=== PATIENT | male | born 1995 | race Caucasian/White ===

== ENCOUNTER 2016-06-11 23:22 | Emergency (ER) | payer OTHER ==
[~2016-06-11] VITALS: Ht 170.2 cm; Wt 63.9 kg
[~2016-06-11 23:22] MED LIST: ACET-1256 PO
[2016-06-11 23:30] VITALS: TEMP 37; Ht 170.2 cm; Wt 63.9 kg
[2016-06-11] MEDS ORDERED: MoRPHine SULFATE 4 MG/ML 1 ML CARP\\VIAL IM STA (23:39)
[2016-06-11] MEDS ORDERED: ONDANSETRON 4MG OD TAB PO ONE (23:45)
[2016-06-11] MEDS ORDERED: DEXAMETHASONE SOD INJ 10 MG/ML VIAL IM ONE (23:45)
--- NOTE | 2016-06-11 23:51 | EMERGENCY ROOM VISIT NOTE ---
History Report prepared by Eloy: Betsy Westbrook Under the Supervision of: Dr. Emanuel Ocasio D.O. First contact with patient: 23:35 Chief Complaint: HEADACHE Stated Complaint: MIGRAINE; HEAD PAIN History of Present Illness The patient is a 20 year old male who presents to the Emergency Room with complaints of a persistent migraine in the middle of his forehead starting 2 months [employer]. The patient states that during the first month of the migraine it was intermittent and the last month he states it has been constant. The patient states that he has had blurred vision, ear ringing, and nausea associated with his symptoms. The patient states he has had migraine in the past but this migraine feels different because nothing has made it better and the duration of the migraine. The patient denies any fevers. Source of History: patient Onset: 2 months [employer] Position: head (middle forehead) Timing: constant, intermittent Associated Symptoms: + nausea, No fevers Note: Associated symptoms: ear ringing, blurred vision. Review of Systems See HPI for pertinent positives & negatives. A total of 10 systems reviewed and were otherwise negative. Past Medical & Surgical Medical Problems: (1) Attn Deficit W Hyperact (2) Bipolar Disorder, Unspecified (3) Dental caries (4) Exacerbation of chronic back pain (5) Lumbago (6) Migraine Unspecified W/O Intract Mgrn W/O Status Migrainosus (7) Pain, dental (8) Pharyngitis (9) Thrush of mouth and esophagus (10) Tobacco Use Disorder Surgical Problems: (1) Inguinal hernia Family History Diabetes mellitus FH: cancer FH: gallbladder disease FH: heart disease FH: lung disease Hypertension Kidney disease or stones Social History Smoking Status: Current Every Day Smoker Alcohol Use: none Marital Status: single Housing Status: lives alone Occupation Status: employed Current/Historical Medications Scheduled Loratadine (Claritin), 10 MG PO DAILY Scheduled PRN Acetaminophen (Tylenol), 1,000 MG PO Q6H PRN for Pain Ibuprofen Tab (Advil), 600-800 MG PO Q6H PRN for Pain Allergies Coded Allergies: Penicillins (Verified Allergy, Severe, ANAPHYLAXIS, 01/25/16) Promethazine (Verified Allergy, Severe, SHORTNESS OF BREATH, 01/25/16) Tramadol (Verified Allergy, Severe, SHORTNESS OF BREATH, 01/25/16) Diphenhydramine (Verified Allergy, Unknown, Itchiness and trouble breathing., 01/25/16) Lactose (Verified Adverse Reaction, Intermediate, nausea, 01/25/16) Uncoded Allergies: ANTIINFLAMMATORIES (Adverse Reaction, Mild, migraines, 06/14/15) Physical Exam Vital Signs Date Time Temp Pulse Resp B/P Pulse Ox O2 Delivery O2 Flow Rate FiO2 06/12/16 01:07 64 18 144/72 96 Room Air 06/11/16 23:30 37.0 86 18 139/90 96 Room Air Physical Exam GENERAL: Patient is awake, alert, and in no acute distress. Patient is resting comfortably and showing no signs of anxiety EYES: The conjunctivae are clear. The pupils are round and reactive. EARS, NOSE, MOUTH AND THROAT: The nose is without any evidence of any deformity. Mucous membranes are moist tongue is midline. TM clear bilaterally. NECK: The neck is nontender and supple. RESPIRATORY: Normal respiratory effort is noted there is no evidence of wheezing rhonchi or rales CARDIOVASCULAR: Regular rate and rhythm noted there no murmurs rubs or gallops normal S1 normal S2 GASTROINTESTINAL: The abdomen is soft. Bowel sounds are present in all quadrants. Abdomen is nontender MUSCULOSKELETAL/EXTREMITIES: There is no evidence of gross deformity full range of motion is noted in the hips and shoulders SKIN: There is no obvious evidence of any rash. There are no petechiae, pallor or cyanosis noted. NEUROLOGIC: Patient is awake alert and oriented x3 strength is symmetric patellar reflexes are 2+ bilaterally Medical Decision & Procedures ER Provider Diagnostic Interpretation: CT results as stated below per my review and radiologist interpretation. Preliminary Findings Only -- See Final Report for Complete Findings: CT HEAD: Comparison is made to CT head dated 02/21/14 No evidence of ICH, mass effect, or edema. Chen-white differentiation preserved. No evidence of skull fracture. Visualized paranasal sinuses and mastoid air cells are clear. Radiologist: Alysha Chan M.D. Study ready at 1383 and initial results transmitted at 3534. Medications Administered Medications (Trade) Dose Ordered Sig/Eldon Route Start Time Stop Time Status Last Admin Dose Admin Morphine Sulfate (MoRPHine SULFATE INJ) 4 mg NOW STAT IM 06/11/16 23:39 06/11/16 23:41 DC 06/11/16 23:47 4 MG Ondansetron HCl (Zofran Odt) 4 mg ONE ONCE PO 06/11/16 23:45 06/11/16 23:46 DC 06/11/16 23:46 4 MG Dexamethasone Sodium Phosphate (Decadron Inj) 10 mg NOW ONCE IM 06/11/16 23:45 06/11/16 23:46 DC 06/11/16 23:46 10 MG Morphine Sulfate (MoRPHine SULFATE INJ) 4 mg NOW STAT IM 06/12/16 00:14 06/12/16 00:15 DC 06/12/16 00:29 4 MG ED Course 2338: The patient was evaluated in room B12B. A complete history and physical examination were performed. 2339: Ordered Morphine Sulfate 4 mg IM. 2345: Ordered Decadron Inj 10 mg IM, Zofran Odt 4 mg PO 0014: Ordered Morphine Sulfate 4 mg IM. 0105: Upon reevaluation, the patient is hemodynamically stable. I discussed the results and treatment plan with him. He verbalized agreement of the treatment plan. The patient was discharged home. Medical Decision The patient's history was concerning for headache. Differential diagnosis: Etiologies such as migraine headache, meningitis, sinusitis, CO exposure, ICH, SAH, infection, tumor, headache, sinus thrombosis, arterial dissection, as well as others were entertained. Nursing notes reviewed. The patient is a 20-year-old male who presented to the emergency department for an evaluation of headache. The patient states he has a history of migraine headaches but that this headache appears different to him in duration as well as intensity. The patient did not have any focal neurologic deficits. He had no fever or meningismus. The patient was treated with pain medication and antiemetics in the emergency department. On subsequent reevaluation he was feeling much better. I discussed the patient's radiographic studies with him. He was encouraged to rest and avoid any strenuous activity. He was encouraged to continue all medications as prescribed. He was also encouraged to follow-up with his family doctor in the morning for reevaluation but return to the emergency department immediately if symptoms change worsen or need arises. Impression Primary Impression: Migraine Additional Impression: Headache Scribe Attestation The scribe's documentation has been prepared under my direction and personally reviewed by me in its entirety. I confirm that the note above accurately reflects all work, treatment, procedures, and medical decision making performed by me. Departure Information Dispostion Home / Self-Care Referrals Martin Waters M.D. (PCP) Forms HOME CARE DOCUMENTATION FORM, IMPORTANT VISIT INFORMATION Patient Instructions My [facility] Additional Instructions Call your family in the morning to schedule follow-up appointment. Rest and avoid any strenuous activity. Continue all medications as prescribed. Continue using Motrin and Tylenol stretcher for pain. Problem Qualifiers
[2016-06-11] MEDS ORDERED: CLR10 PO (23:59)
[2016-06-12] MEDS ORDERED: MoRPHine SULFATE 4 MG/ML 1 ML CARP\\VIAL IM STA (00:14)
[2016-06-12 01:07] VITALS: BP 144/72; PULSE 64; O2SAT 96
--- NOTE | 2016-06-12 06:55 | DIAGNOSTIC IMAGING REPORT ---
CT OF THE HEAD WITHOUT CONTRAST CLINICAL HISTORY: Headache. COMPARISON STUDY: Head CT February 21, 2014. CT DOSE: 537.48 mGy.cm TECHNIQUE: Helical axial images of the head were obtained without IV contrast. Automated exposure control was utilized for the study. FINDINGS: No acute intracranial hemorrhage, midline shift or mass effect is present. Ventricular system is normal. The basilar cisterns are patent. No extra-axial collection is present. Chen-white differentiation is maintained. There are no findings to suggest acute dural sinus thrombosis or acute territorial infarct. There is no calvarial abnormality. Visualized portions of the sinuses and mastoid air cells are clear. IMPRESSION: No acute intracranial findings. Electronically signed by: Iftikhar Pulliam M.D. 06/12/2016 6:54 AM Dictated Date/Time: 06/12/2016 6:53 AM
[2016-08-26] MEDS ORDERED: ACET-1256 PO (21:22)
== END 2016-06-12 01:09 | disposition home or self-care (01) ==
LOC: C.EDB 23:23
DX: G43.909 Migraine, unspecified, not intractable, without status migrainosus (principal); F31.9 Bipolar disorder, unspecified; F90.9 Attention-deficit hyperactivity disorder, unspecified type; F17.200 Nicotine dependence, unspecified, uncomplicated; Z83.3 Family history of diabetes mellitus; Z80.9 Family history of malignant neoplasm, unspecified; Z83.79 Family history of other diseases of the digestive system; Z82.49 Family history of ischemic heart disease and other diseases of the circulatory system; Z84.1 Family history of disorders of kidney and ureter

== ENCOUNTER 2016-06-24 21:52 | Emergency (ER) | payer SELFPAY ==
[~2016-06-24] VITALS: Ht 170.2 cm; Wt 85.3 kg
[~2016-06-24 21:52] MED LIST changes: +CLR10 PO
[2016-06-24 21:56] VITALS: TEMP 37.3; Ht 170.2 cm; Wt 85.3 kg
[2016-06-24] MEDS ORDERED: ONDANSETRON INJ 2 MG/ML 2 ML VIAL IV STA (22:20)
[2016-06-24] MEDS ORDERED: SODIUM CHLORIDE 0.9% 1000ML 500 ML IV STA (22:20)
[2016-06-24] MEDS ORDERED: SODIUM CHLORIDE 0.9% 1000ML 1,000 ML IV STA (22:20)
--- NOTE | 2016-06-24 22:29 | EMERGENCY ROOM VISIT NOTE ---
History Report prepared by Eloy: Tracey Siddiqi Under the Supervision of: Dr. Augusto Calloway M.D. First contact with patient: 22:13 Chief Complaint: ABDOMINAL PAIN Stated Complaint: R LWR STOMACH PAIN, THROWING UP,CANT EAT History of Present Illness The patient is a 20 year old male who presents to the Emergency Room with complaints of worsening abdominal pain that started 3 weeks ago. He rates the pain a 9/10 in severity. It worsens with movement. Associated symptoms include nausea, vomiting, and hematochezia. The patient states that his emesis is blood tinged. The patient has a history of hernia repair 3 years ago. Source of History: patient Onset: 3 weeks ago Position: abdomen Symptom Intensity: 9/10 Timing: worsening Modifying Factors (Worsening): movement Associated Symptoms: + hematochezia, + nausea, + vomiting Review of Systems See HPI for pertinent positives & negatives. A total of 10 systems reviewed and were otherwise negative. Past Medical & Surgical Medical Problems: (1) Attn Deficit W Hyperact (2) Bipolar Disorder, Unspecified (3) Dental caries (4) Exacerbation of chronic back pain (5) Lumbago (6) Migraine Unspecified W/O Intract Mgrn W/O Status Migrainosus (7) Pain, dental (8) Pharyngitis (9) Thrush of mouth and esophagus (10) Tobacco Use Disorder Surgical Problems: (1) Inguinal hernia Family History Diabetes mellitus FH: cancer FH: gallbladder disease FH: heart disease FH: lung disease Hypertension Kidney disease or stones Social History Smoking Status: Current Every Day Smoker Alcohol Use: none Marital Status: single Housing Status: lives alone Occupation Status: employed Current/Historical Medications Scheduled Loratadine (Claritin), 10 MG PO DAILY Scheduled PRN Ibuprofen Tab (Advil), 600-800 MG PO Q6H PRN for Pain Allergies Coded Allergies: Penicillins (Verified Allergy, Severe, ANAPHYLAXIS, 06/24/16) Promethazine (Verified Allergy, Severe, SHORTNESS OF BREATH, 06/24/16) Tramadol (Verified Allergy, Severe, SHORTNESS OF BREATH, 06/24/16) Diphenhydramine (Verified Allergy, Unknown, Itchiness and trouble breathing., 06/24/16) Lactose (Verified Adverse Reaction, Intermediate, nausea, 06/24/16) Uncoded Allergies: ANTIINFLAMMATORIES (Adverse Reaction, Mild, migraines, 06/14/15) Physical Exam Vital Signs Date Time Temp Pulse Resp B/P Pulse Ox O2 Delivery O2 Flow Rate FiO2 06/25/16 00:17 76 16 131/75 98 06/24/16 21:56 37.3 81 17 141/90 99 Room Air Physical Exam GENERAL: Patient is in no acute distress. HEENT: No acute trauma, normocephalic atraumatic, mucous membranes moist, no nasal congestion, no scleral icterus. NECK: No stridor, no adenopathy, no meningismus, trachea is midline. LUNGS: Clear to auscultation bilaterally, no wheeze, no rhonchi, breath sounds equal. HEART: 2/6 systolic murmur, mildly tachycardic. Regular rhythm. ABDOMEN: Moderately tender right lower quadrant, soft, bowel sounds positive, no hernias, no peritonitis. GROIN: Testicles non tender, no hernia. RECTAL: Heme negative. EXTREMITIES: No cyanosis or edema, full range of motion of all the joints without pain or difficulty, no signs for acute trauma. NEUROLOGIC: Oriented x 3, no acute motor or sensory deficits, no focal weakness. SKIN: No rash, no jaundice, no diaphoresis. Medical Decision & Procedures Laboratory Results 06/24/16 22:30 Red Blood Count 4.30, Mean Corpuscular Volume 84.7, Mean Corpuscular Hemoglobin 29.8, Mean Corpuscular Hemoglobin Concent 35.2, Mean Platelet Volume 9.5, Neutrophils (%) (Auto) 68.8, Lymphocytes (%) (Auto) 19.3, Monocytes (%) (Auto) 8.5, Eosinophils (%) (Auto) 2.9, Basophils (%) (Auto) 0.4, Neutrophils # (Auto) 4.96, Lymphocytes # (Auto) 1.39, Monocytes # (Auto) 0.61, Eosinophils # (Auto) 0.21, Basophils # (Auto) 0.03 06/24/16 22:30 Test 06/24/16 22:30 06/24/16 22:40 White Blood Count 7.21 K/uL (4.8-10.8) Red Blood Count 4.30 M/uL (4.7-6.1) Hemoglobin 12.8 g/dL (14.0-18.0) Hematocrit 36.4 % (42-52) Mean Corpuscular Volume 84.7 fL (80-100) Mean Corpuscular Hemoglobin 29.8 pg (25-34) Mean Corpuscular Hemoglobin Concent 35.2 g/dl (32-36) Platelet Count 234 K/uL (130-400) Mean Platelet Volume 9.5 fL (7.4-10.4) Neutrophils (%) (Auto) 68.8 % Lymphocytes (%) (Auto) 19.3 % Monocytes (%) (Auto) 8.5 % Eosinophils (%) (Auto) 2.9 % Basophils (%) (Auto) 0.4 % Neutrophils # (Auto) 4.96 K/uL (1.4-6.5) Lymphocytes # (Auto) 1.39 K/uL (1.2-3.4) Monocytes # (Auto) 0.61 K/uL (0.11-0.59) Eosinophils # (Auto) 0.21 K/uL (0-0.5) Basophils # (Auto) 0.03 K/uL (0-0.2) RDW Standard Deviation 36.9 fL (36.4-46.3) RDW Coefficient of Variation 12.0 % (11.5-14.5) Immature Granulocyte % (Auto) 0.1 % Immature Granulocyte # (Auto) 0.01 K/uL (0.00-0.02) Anion Gap 10.0 mmol/L (3-11) Est Creatinine Clear Calc Drug Dose 145.7 ml/min Estimated GFR () 144.8 Estimated GFR (Non- 124.9 BUN/Creatinine Ratio 14.9 (10-20) Lactic Acid Level 1.2 mmol/L (0.4-2.0) Calcium Level 8.4 mg/dl (8.5-10.1) Total Bilirubin 0.2 mg/dl (0.2-1) Aspartate Amino Transf (AST/SGOT) 10 U/L (15-37) Alanine Aminotransferase (ALT/SGPT) 14 U/L (12-78) Alkaline Phosphatase 56 U/L (45-117) Total Protein 6.7 gm/dl (6.4-8.2) Albumin 4.0 gm/dl (3.4-5.0) Globulin 2.7 gm/dl (2.5-4.0) Albumin/Globulin Ratio 1.5 (0.9-2) Lipase 222 U/L (73-393) Urine Color YELLOW Urine Appearance CLEAR (CLEAR) Urine pH 6.5 (4.5-7.5) Urine Specific [place] 1.027 (1.000-1.030) Urine Protein NEG (NEG) Urine Glucose (UA) NEG (NEG) Urine Ketones NEG (NEG) Urine Occult Blood NEG (NEG) Urine Nitrite NEG (NEG) Urine Bilirubin NEG (NEG) Urine Urobilinogen NEG (NEG) Urine Leukocyte Esterase NEG (NEG) Laboratory results reviewed by me. Medications Administered Medications (Trade) Dose Ordered Sig/Eldon Route Start Time Stop Time Status Last Admin Dose Admin Sodium Chloride (Nss 1000ml) 500 ml @ 999 mls/hr Q31M STAT IV 06/24/16 22:20 06/24/16 22:50 DC 06/24/16 22:35 999 MLS/HR Ondansetron HCl 4 mg 4 mg NOW STAT IV 06/24/16 22:20 06/24/16 22:23 DC 06/24/16 22:35 4 MG Sodium Chloride (Nss 1000ml) 1,000 ml @ 200 mls/hr Q5H STAT IV 06/24/16 22:20 06/25/16 03:19 06/24/16 22:35 200 MLS/HR Morphine Sulfate (MoRPHine SULFATE INJ) 6 mg Q30M PRN IV 06/24/16 22:30 07/08/16 22:29 06/25/16 00:26 6 MG ED Course 2214: The patient was evaluated in room A2. A complete history and physical exam was performed. 2220: Ordered Sodium Chloride 1,000 ml @ 200 mls/hr IV, Zofran Injection 4 mg IV , Sodium Chloride 500 ml @ 999 mls/hr IV. 2230: Ordered Morphine Sulfate 6 mg IV. Medical Decision Differential diagnosis includes but is not limited to appendicitis, hernia, renal colic, musculoskeletal pain, mesenteric adenitis, biliary colic, pancreatis, bowel obstruction, GI bleeding There is no leukocytosis or concerning anemia. No significant electrolyte abnormality, kidney failure or hepatitis. There is no pancreatitis. Lactic acid level is not elevated making bowel ischemia less likely. On exam, the patient did have tenderness in the right lower quadrant, there was no peritonitis. He was not febrile or toxic. Rectal exam was done because of his complaints of rectal bleeding, the stool was heme-negative. The patient received IV saline, IV Zofran and IV morphine. He is more comfortable. Because of concerns for possible appendicitis or diverticulitis, an abdominal and pelvis CT has been ordered, this result is pending. The patient's case has been assumed by Dr. Almaguer, she has assumed care at the change of shift. We await the CT results. Impression Primary Impression: Right lower quadrant abdominal pain Scribe Attestation The scribe's documentation has been prepared under my direction and personally reviewed by me in its entirety. I confirm that the note above accurately reflects all work, treatment, procedures, and medical decision making performed by me. Departure Information Dispostion Still a Patient Referrals Martin Waters M.D. (PCP) Patient Instructions My [facility]
[2016-06-24] MEDS: MoRPHine SULFATE 10 MG/ML CARP/VIAL IV PRN (22:36)
[2016-06-24 22:52] LABS: URINE APPEARANCE CLEAR (CLEAR); URINE BILIRUBIN NEG (NEG); URINE COLOR YELLOW; URINE NITRITE NEG (NEG); URINE PH 6.5 (4.5-7.5); URINE SPECIFIC GRAVITY 1.027 (1.000-1.030); UROBILINOGEN NEG (NEG); ZZUR CULT IF INDIC CLEAN CATCH NO
[2016-06-24 22:55] LABS: BASO % 0.4 %; BASO ABS # 0.03 K/uL (0-0.2); COMPLETE YES; EOS % 2.9 %; HEMATOCRIT 36.4 % (42-52); IG% 0.1 %; LYMPH % 19.3 %; LYMPH ABS # 1.39 K/uL (1.2-3.4); MEAN CELL VOLUME 84.7 fL (80-100); MEAN CORPUSCULAR HEMOGLOBIN 29.8 pg (25-34); MEAN CORPUSCULAR HGB CONC 35.2 g/dl (32-36); MEAN PLATELET VOLUME 9.5 fL (7.4-10.4); MONO % 8.5 %; NEUT % 68.8 %; PLATELET COUNT 234 K/uL (130-400); WHITE BLOOD COUNT 7.21 K/uL (4.8-10.8)
[2016-06-24 22:56] LABS: MANUAL MICROSCOPIC REQUIRED? NO; REVIEW REQ? NO
[2016-06-24 23:16] LABS: BUN/CREATININE RATIO 14.9 (10-20); CALCIUM 8.4 mg/dl (8.5-10.1); CREATININE 0.83 mg/dl (0.60-1.40); POTASSIUM 3.1 mmol/L (3.5-5.1)
[2016-06-24 23:19] LABS: ALB/GLOB RATIO 1.5 (0.9-2)
[2016-06-25] MEDS: MoRPHine SULFATE 10 MG/ML CARP/VIAL IV PRN (00:26)
[2016-06-25] MEDS ORDERED: OPTIRAY 320 IV PRN (00:30)
[2016-06-25] MEDS ORDERED: ONDANSETRON INJ 2 MG/ML 2 ML VIAL IV STA (02:10)
[2016-06-25] MEDS ORDERED: OXYCODONE HCL IR 5 MG TAB (IMMEDIATE RELEASE) PO STA (02:10)
[2016-06-25] MEDS ORDERED: ONDA4TAB46 PO (02:18)
[2016-06-25] MEDS ORDERED: PRLSR20 PO (02:18)
[2016-06-25 02:21] VITALS: BP 132/76; PULSE 80; O2SAT 98
--- NOTE | 2016-06-25 02:24 | EMERGENCY ROOM VISIT NOTE ---
ED Visit Note First contact with patient: 01:10 This case was signed out to me at change of shift awaiting results of the CT scan of the abdomen/pelvis. CT scan was interpreted by stat rad: The appendix is normal in appearance. However, there is free fluid in the right lower quadrant and proximity to the appendix also unclear etiology. If there is persistent pain, recommend follow-up. No free air or fluid collections. No bowel obstruction. Mild wall thickening of the sigmoid, for example on image 321 of series 3, may be due to incomplete distention. Correlate with clinical findings to exclude focal colitis. Postsurgical changes in the right inguinal region. No recurrent hernia. No radiopaque gallstones. No pancreatitis or pyelonephritis. No hydronephrosis. Normal caliber abdominal aorta. Distended bladder. I reviewed these findings with the patient. He explained to me that he has had a history of previous fluid collection surrounding his appendix in the past. This is not a new finding for him. I recommended that he stop taking any NSAIDs because of his description of bleeding. I will start him on Prilosec and Zofran. I have asked him to follow up with Dr. Waters who is his PCP in her later today or tomorrow for recheck. He can return here to the emergency department symptoms worsen.
--- NOTE | 2016-06-25 07:00 | DIAGNOSTIC IMAGING REPORT ---
ABDOMEN AND PELVIS CT WITH IV AND ORAL CONTRAST CT DOSE: 267.94 mGy.cm HISTORY: Flank pain ABDOMINAL PAIN/GI--? APPY--GIVE PO AND IV CONTRAST TECHNIQUE: Multiaxial CT images of the abdomen and pelvis were performed following the use of intravenous and oral contrast. COMPARISON STUDY: 12/25/2015 FINDINGS: Lung bases are clear. Liver spleen and pancreas are unremarkable. Kidneys enhance appropriately. Gallbladder is negative for distention. Bowel pattern is nonobstructive. An is identified appear to be unremarkable. There is a trace amount of pericecal free fluid about surgical significance. Postoperative changes consistent with a right inguinal hernia repair noted. Bladder is midline. There is trace amount of free fluid within the pelvic cul-de-sac. IMPRESSION: 1. Nonobstructive bowel pattern. 2. Normal appendix. 3. Trace free fluid in the pericecal and cul-de-sac regions of uncertain significance. Electronically signed by: Martin Dee M.D. 06/25/2016 6:59 AM Dictated Date/Time: 06/25/2016 6:57 AM
[2016-08-26] MEDS ORDERED: ACET-1256 PO (21:22)
== END 2016-06-25 02:25 | disposition home or self-care (01) ==
LOC: C.EDB 21:53 → C.EDA 06-25 02:25
DX: R10.31 Right lower quadrant pain (principal); F90.1 Attention-deficit hyperactivity disorder, predominantly hyperactive type; F31.9 Bipolar disorder, unspecified; G89.29 Other chronic pain; M54.9 Dorsalgia, unspecified; F17.200 Nicotine dependence, unspecified, uncomplicated; Z83.3 Family history of diabetes mellitus; Z80.9 Family history of malignant neoplasm, unspecified; Z82.49 Family history of ischemic heart disease and other diseases of the circulatory system

== ENCOUNTER 2016-07-15 01:05 | Emergency (ER) | payer SELFPAY ==
[~2016-07-15] VITALS: Ht 170.2 cm; Wt 61.4 kg
[~2016-07-15 01:05] MED LIST changes: -ACET-1256 PO; +ONDA4TAB46 PO; +PRLSR20 PO
[2016-07-15 01:13] VITALS: TEMP 36.6; Ht 170.2 cm; Wt 61.4 kg
[2016-07-15] MEDS ORDERED: ONDANSETRON INJ 2 MG/ML 2 ML VIAL IV STA ×2 (01:38→03:18)
[2016-07-15] MEDS ORDERED: SODIUM CHLORIDE 0.9% 1000ML 1,000 ML IV STA (01:38)
[2016-07-15 01:53] LABS: URINE APPEARANCE CLEAR (CLEAR); URINE BILIRUBIN NEG (NEG); URINE COLOR YELLOW; URINE NITRITE NEG (NEG); URINE SPECIFIC GRAVITY 1.017 (1.000-1.030); UROBILINOGEN NEG (NEG); ZZUR CULT IF INDIC CLEAN CATCH NO
[2016-07-15 01:55] LABS: MANUAL MICROSCOPIC REQUIRED? NO; REVIEW REQ? NO
[2016-07-15 02:01] LABS: BASO % 0.5 %; BASO ABS # 0.04 K/uL (0-0.2); COMPLETE YES; EOS % 1.5 %; HEMATOCRIT 38.1 % (42-52); IG% 0.1 %; LYMPH % 25.3 %; LYMPH ABS # 2.05 K/uL (1.2-3.4); MEAN CELL VOLUME 80.7 fL (80-100); MEAN CORPUSCULAR HEMOGLOBIN 29.9 pg (25-34); MEAN PLATELET VOLUME 9.3 fL (7.4-10.4); MONO % 8.3 %; NEUT % 64.3 %; PLATELET COUNT 260 K/uL (130-400); RED BLOOD COUNT 4.72 M/uL (4.7-6.1)
[2016-07-15 02:08] LABS: BUN/CREATININE RATIO 11.5 (10-20); CALCIUM 9.1 mg/dl (8.5-10.1); CREATININE 0.97 mg/dl (0.60-1.40); POTASSIUM 3.4 mmol/L (3.5-5.1)
[2016-07-15 02:13] LABS: ALB/GLOB RATIO 1.4 (0.9-2)
[2016-07-15] MEDS ORDERED: MoRPHine SULFATE 10 MG/ML CARP/VIAL IV STA (02:39)
[2016-07-15] MEDS ORDERED: MoRPHine SULFATE 2 MG/ML CARP IV STA (03:18)
--- NOTE | 2016-07-15 03:41 | EMERGENCY ROOM VISIT NOTE ---
History First contact with patient: 01:22 Chief Complaint: ABDOMINAL PAIN Stated Complaint: SEVERE PAIN RIGHT SIDE,THROWING UP,REALLY SICK Nursing Triage Summary: pt c/o right sided abd pain for past 3weeks that increased tonight enough to bring him in here. History of Present Illness The patient is a 20 year old male who presents to the Emergency Room with complaints of severe right lower quadrant pain. The patient states that he has had right lower quadrant pain on and off for several years. He reports that the pain has worsened over the past 3 weeks. He was seen here for the pain a few weeks ago and had a negative CT scan. He was told to follow-up with his primary care provider and states that he did this, and they scheduled a colonoscopy in the coming weeks. He reports that he is unable to eat without vomiting due to the pain. It hurts to walk or move. He states that he feels weak. He has a history of hernia surgery, but denies any history of other abdominal surgery. He has been taking ibuprofen and Tylenol without relief. He denies changes in bowel movements, chest pain, shortness of breath, blood in the stools, fevers or chills. Review of Systems A complete 10-point Review of Systems was discussed with the patient, with pertinent positives and negatives listed in the History of Present Illness. All remaining Review of Systems questions can be considered negative unless otherwise specified. Past Medical/Surgical History Medical Problems: (1) Attn Deficit W Hyperact (2) Bipolar Disorder, Unspecified (3) Dental caries (4) Exacerbation of chronic back pain (5) Lumbago (6) Migraine Unspecified W/O Intract Mgrn W/O Status Migrainosus (7) Pain, dental (8) Pharyngitis (9) Thrush of mouth and esophagus (10) Tobacco Use Disorder Surgical Problems: (1) Inguinal hernia Family History Diabetes mellitus FH: cancer FH: gallbladder disease FH: heart disease FH: lung disease Hypertension Kidney disease or stones Social History Smoking Status: Current Every Day Smoker Alcohol Use: none Marital Status: single Housing Status: lives alone Occupation Status: employed Current/Historical Medications Scheduled Loratadine (Claritin), 10 MG PO DAILY Omeprazole (Prilosec), 20 MG PO DAILY Scheduled PRN Ibuprofen Tab (Advil), 600-800 MG PO Q6H PRN for Pain Ondansetron Hcl (Zofran), 4 MG PO Q6 PRN for Nausea Allergies Coded Allergies: Penicillins (Verified Allergy, Severe, ANAPHYLAXIS, 07/15/16) Promethazine (Verified Allergy, Severe, SHORTNESS OF BREATH, 07/15/16) Tramadol (Verified Allergy, Severe, SHORTNESS OF BREATH, 07/15/16) Diphenhydramine (Verified Allergy, Unknown, Itchiness and trouble breathing., 07/15/16) Lactose (Verified Adverse Reaction, Intermediate, nausea, 07/15/16) Uncoded Allergies: ANTIINFLAMMATORIES (Adverse Reaction, Mild, migraines, 06/14/15) Physical Exam Vital Signs Date Time Temp Pulse Resp B/P Pulse Ox O2 Delivery O2 Flow Rate FiO2 07/15/16 03:55 71 16 107/62 98 07/15/16 03:16 68 20 131/76 97 Room Air 07/15/16 01:13 36.6 96 20 130/77 99 Room Air Physical Exam VITALS: Vitals are noted on the nurse's note and reviewed by myself. Vital signs stable. GENERAL: This is a 20-year-old male, in no acute distress, nondiaphoretic, well- developed well-nourished. SKIN: Capillary reflex less than 2 seconds. HEENT: Normocephalic. PERRLA. EOMI. Nares patent. Mucous membranes moist. Neck is supple without nuchal rigidity. HEART: Regular rate and rhythm without murmurs gallops or rubs. LUNGS: Clear to auscultation bilaterally without wheezes, rales or rhonchi. ABDOMEN: Positive bowel sounds x 4. The abdomen is soft and nondistended. There is tenderness of the right lower quadrant. No guarding or rebound tenderness. NEURO: Patient was alert and oriented to person place and time. Medical Decision & Procedures Laboratory Results 07/15/16 01:40 Red Blood Count 4.72, Mean Corpuscular Volume 80.7, Mean Corpuscular Hemoglobin 29.9, Mean Corpuscular Hemoglobin Concent 37.0, Mean Platelet Volume 9.3, Neutrophils (%) (Auto) 64.3, Lymphocytes (%) (Auto) 25.3, Monocytes (%) (Auto) 8.3, Eosinophils (%) (Auto) 1.5, Basophils (%) (Auto) 0.5, Neutrophils # (Auto) 5.21, Lymphocytes # (Auto) 2.05, Monocytes # (Auto) 0.67, Eosinophils # (Auto) 0.12, Basophils # (Auto) 0.04 07/15/16 01:40 Test 07/15/16 00:00 07/15/16 01:40 Urine Color YELLOW Urine Appearance CLEAR (CLEAR) Urine pH 6.0 (4.5-7.5) Urine Specific Dorr 1.017 (1.000-1.030) Urine Protein NEG (NEG) Urine Glucose (UA) NEG (NEG) Urine Ketones NEG (NEG) Urine Occult Blood NEG (NEG) Urine Nitrite NEG (NEG) Urine Bilirubin NEG (NEG) Urine Urobilinogen NEG (NEG) Urine Leukocyte Esterase NEG (NEG) White Blood Count 8.10 K/uL (4.8-10.8) Red Blood Count 4.72 M/uL (4.7-6.1) Hemoglobin 14.1 g/dL (14.0-18.0) Hematocrit 38.1 % (42-52) Mean Corpuscular Volume 80.7 fL (80-100) Mean Corpuscular Hemoglobin 29.9 pg (25-34) Mean Corpuscular Hemoglobin Concent 37.0 g/dl (32-36) Platelet Count 260 K/uL (130-400) Mean Platelet Volume 9.3 fL (7.4-10.4) Neutrophils (%) (Auto) 64.3 % Lymphocytes (%) (Auto) 25.3 % Monocytes (%) (Auto) 8.3 % Eosinophils (%) (Auto) 1.5 % Basophils (%) (Auto) 0.5 % Neutrophils # (Auto) 5.21 K/uL (1.4-6.5) Lymphocytes # (Auto) 2.05 K/uL (1.2-3.4) Monocytes # (Auto) 0.67 K/uL (0.11-0.59) Eosinophils # (Auto) 0.12 K/uL (0-0.5) Basophils # (Auto) 0.04 K/uL (0-0.2) RDW Standard Deviation 33.2 fL (36.4-46.3) RDW Coefficient of Variation 11.4 % (11.5-14.5) Immature Granulocyte % (Auto) 0.1 % Immature Granulocyte # (Auto) 0.01 K/uL (0.00-0.02) Anion Gap 9.0 mmol/L (3-11) Est Creatinine Clear Calc Drug Dose 103.7 ml/min Estimated GFR () 127.9 Estimated GFR (Non- 110.4 BUN/Creatinine Ratio 11.5 (10-20) Calcium Level 9.1 mg/dl (8.5-10.1) Total Bilirubin 0.3 mg/dl (0.2-1) Aspartate Amino Transf (AST/SGOT) 13 U/L (15-37) Alanine Aminotransferase (ALT/SGPT) 20 U/L (12-78) Alkaline Phosphatase 60 U/L (45-117) Total Protein 7.4 gm/dl (6.4-8.2) Albumin 4.3 gm/dl (3.4-5.0) Globulin 3.1 gm/dl (2.5-4.0) Albumin/Globulin Ratio 1.4 (0.9-2) Lipase 140 U/L (73-393) Medications Administered Medications (Trade) Dose Ordered Sig/Eldon Route Start Time Stop Time Status Last Admin Dose Admin Sodium Chloride (Nss 1000ml) 1,000 ml @ 999 mls/hr Q1H1M STAT IV 07/15/16 01:38 07/15/16 02:38 DC 07/15/16 01:54 999 MLS/HR Ondansetron HCl (Zofran Inj) 4 mg NOW STAT IV 07/15/16 01:38 07/15/16 01:40 DC 07/15/16 01:54 4 MG Morphine Sulfate (MoRPHine SULFATE INJ) 6 mg NOW STAT IV 07/15/16 02:39 07/15/16 02:40 DC 07/15/16 02:45 6 MG Morphine Sulfate (MoRPHine SULFATE INJ) 2 mg NOW STAT IV 07/15/16 03:18 07/15/16 03:20 DC 07/15/16 03:29 2 MG Ondansetron HCl (Zofran Inj) 4 mg NOW STAT IV 07/15/16 03:18 07/15/16 03:20 DC 07/15/16 03:29 4 MG Medical Decision Differential diagnosis includes appendicitis, cholecystitis, colitis, gastroenteritis, pancreatitis, among others. The patient was evaluated as above. Labs were drawn and IV access was obtained. Imaging studies were performed and read by radiology as above. The patient was medicated as above. The patient was reassessed multiple times during their stay in the emergency department and remained in stable condition. The patient is a 20-year-old male who presents today complaining of right lower quadrant abdominal pain. The patient has had this pain off and on for several years. He was seen here a few weeks ago and had a negative CT scan. Labs today revealed no leukocytosis, anemia or concerning abnormalities. Abdominal series was performed and reviewed by myself with no acute findings noted. Urinalysis was not suggestive of infection. The patient was instructed that he must follow-up with his primary care provider for evaluation of his ongoing pain. He should return for worsening symptoms. He did improve with IV pain medication here. He was informed that he will not be provided any narcotic prescriptions at home. Based on the patient's presentation, lab results, and imaging studies, I feel the patient is stable for outpatient treatment. The patient's case was reviewed with Dr. Ball, ED attending physician, who agreed with my assessment and treatment plan. Discharge instructions were reviewed with the patient. The patient verbalized understanding of my assessment and treatment plan and was discharged home in good condition. Impression Primary Impression: Right lower quadrant abdominal pain Departure Information Dispostion Home / Self-Care Condition GOOD Referrals Martin Waters M.D. (PCP) Patient Instructions My [facility] Additional Instructions You have been treated in the Emergency Department your Abdominal Pain. Laboratory results and imaging studies have ruled out any emergent causes for your abdominal pain which would warrant admission or surgery. For pain control, you can use the following [id number] medicines (if >12 yo): - Regular strength (325mg/tab) Tylenol (acetaminophen) 2 tabs every 4-6 hours as needed. Do not exceed 12 tablets in a 24 hour period. Avoid taking more than 4 grams (4000 mg) of Tylenol per day. This includes any other sources of acetaminophen you may take on a regular basis. - Regular strength (200 mg/tab) Advil (ibuprofen) 1-2 tabs every 4-6 hours as needed. Do not exceed a dose of 3200 mg per day. Drink plenty of water and stay well hydrated. As with any trip to the Emergency Department, you should follow-up with your Primary Care Provider from today's visit. Return to the emergency department if your symptoms persist despite treatment plan outlined above or if the following symptoms occur: increased fevers, chills , worsening nausea/vomiting, blood in your stool or urine.
[2016-07-15 03:55] VITALS: BP 107/62; PULSE 71; O2SAT 98
--- NOTE | 2016-07-15 07:02 | DIAGNOSTIC IMAGING REPORT ---
ABDOMEN 2VIEW W/PA CHEST RTN CLINICAL HISTORY: RLQ abd pain pain COMPARISON STUDY: No previous studies for comparison. FINDINGS: The soft tissues, psoas shadows, renal outlines and intestinal gas pattern appear normal. There is no evidence for bowel obstruction. There is no evidence for free intraperitoneal air. No abnormal abdominal calcifications are seen. A frontal view of the chest was performed and is unremarkable. IMPRESSION: Normal study. Electronically signed by: Martin Dee M.D. 07/15/2016 7:01 AM Dictated Date/Time: 07/15/2016 7:00 AM
[2016-08-26] MEDS ORDERED: ACET-1256 PO (21:22)
== END 2016-07-15 03:56 | disposition home or self-care (01) ==
LOC: C.EDB 01:08 → C.EDA 03:56
DX: R10.31 Right lower quadrant pain (principal); F90.0 Attention-deficit hyperactivity disorder, predominantly inattentive type; F31.9 Bipolar disorder, unspecified; F17.200 Nicotine dependence, unspecified, uncomplicated

== ENCOUNTER 2016-08-07 20:41 | Emergency (ER) | payer SELFPAY ==
[~2016-08-07] VITALS: Ht 170.2 cm; Wt 60.4 kg
[2016-08-07 20:53] VITALS: TEMP 37.4; Ht 170.2 cm; Wt 60.4 kg
[2016-08-07] MEDS ORDERED: HYDR-4313 PO (21:22)
[2016-08-07] MEDS ORDERED: HYDROCODONE/APAP ELIX 60ML HOME PACK PO ONE (21:30)
[2016-08-07] MEDS ORDERED: CLINDAMYCIN HCL 150 MG CAP PO ONE (21:30)
[2016-08-07] MEDS ORDERED: ONDANSETRON HOME PACK 4MG OD TAB PO ONE (21:30)
[2016-08-07] MEDS ORDERED: ONDA4TAB10 SL (21:33)
[2016-08-07] MEDS ORDERED: CLIN150C PO (21:33)
[2016-08-07 22:03] VITALS: BP 117/72; PULSE 101; O2SAT 96
--- NOTE | 2016-08-07 23:29 | EMERGENCY ROOM VISIT NOTE ---
History Report prepared by Eloy: Jose Kumar Under the Supervision of: Dr. Pepito Martin M.D. First contact with patient: 21:19 Chief Complaint: THROAT PAIN/INJURY Stated Complaint: PAINFUL THROAT/TONSILS,BODY ACHES History of Present Illness The patient is a 20 year old male who presents to the Emergency Room with complaints of persistent severe throat pain for the past four days. The pain is worsened with swallowing and radiates to the left ear. The patient also complains of subjective fevers, chills, nausea, and generalized body aches. The patient was supposed to follow up with an ENT to set up a tonsillectomy date, however he missed the appointment three weeks ago. He says that he has not had time to reschedule. The patient has had recurrent throat infections since childhood. He does not usually get strep. The patient has had mono in the past. Source of History: patient Onset: four days ago Position: throat Symptom Intensity: severe Timing: other (persistent) Modifying Factors (Worsening): other (swallowing) Associated Symptoms: + chills, + fevers, + nausea Review of Systems See HPI for pertinent positives & negatives. A total of 10 systems reviewed and were otherwise negative. Past Medical & Surgical Medical Problems: (1) Attn Deficit W Hyperact (2) Bipolar Disorder, Unspecified (3) Dental caries (4) Exacerbation of chronic back pain (5) Lumbago (6) Migraine Unspecified W/O Intract Mgrn W/O Status Migrainosus (7) Pain, dental (8) Pharyngitis (9) Thrush of mouth and esophagus (10) Tobacco Use Disorder Surgical Problems: (1) Inguinal hernia Family History Diabetes mellitus FH: cancer FH: gallbladder disease FH: heart disease FH: lung disease Hypertension Kidney disease or stones Social History Smoking Status: Current Every Day Smoker Alcohol Use: none Marital Status: single Housing Status: lives alone Occupation Status: employed Current/Historical Medications Scheduled Clindamycin Hcl (Cleocin), 300 MG PO TID Ondasetron Odt (Zofran Odt), 4 MG SL Q6H Scheduled PRN Acetaminophen (Tylenol), 1,000 MG PO Q6H PRN for Pain Acetaminophen/Hydrocodone (Hydrocodone/Acetaminophen 5-325 mg), 1 TAB PO Q6H PRN for Pain Ibuprofen Tab (Advil), 400-600 MG PO Q6H PRN for Pain Allergies Coded Allergies: Penicillins (Verified Allergy, Severe, ANAPHYLAXIS, 07/15/16) Promethazine (Verified Allergy, Severe, SHORTNESS OF BREATH, 07/15/16) Tramadol (Verified Allergy, Severe, SHORTNESS OF BREATH, 07/15/16) Diphenhydramine (Verified Allergy, Unknown, Itchiness and trouble breathing., 07/15/16) Lactose (Verified Adverse Reaction, Intermediate, nausea, 07/15/16) Uncoded Allergies: ANTIINFLAMMATORIES (Adverse Reaction, Mild, migraines, 06/14/15) Physical Exam Vital Signs Date Time Temp Pulse Resp B/P Pulse Ox O2 Delivery O2 Flow Rate FiO2 08/07/16 22:03 101 22 117/72 96 08/07/16 20:53 37.4 106 20 111/71 100 Room Air Physical Exam Constitutional: Vital signs reviewed. Eyes: Pupils are equal round reactive to light. Conjunctiva are noninjected. ENT: Diffuse erythema with slight exudate, no signs of fluctuance on palpation of the left side or peritonsillar abscess, no trismus or drooling. Mucous membranes are moist. Neck supple without meningeal signs. Mild anterior cervical lymphadenopathy. Hickeys on bilateral neck. Respiratory: Clear to auscultation bilaterally. Breath sounds are equal bilaterally. Cardiovascular: Regular rate and rhythm. No rubs or gallops. GI: Soft, nondistended and nontender. Bowel sounds are present. Musculoskeletal: No peripheral edema. No lower extremity tenderness. Integumentary: No cyanosis. Neurological: The patient is awake and alert. No focal deficits. Psychiatric: Normal affect. Medical Decision & Procedures Medications Administered Medications (Trade) Dose Ordered Sig/Eldon Route Start Time Stop Time Status Last Admin Dose Admin Ondansetron HCl (ZOFRAN ODT 4MG Home Pack) 1 homepack UD ONCE PO 08/07/16 21:30 08/07/16 21:31 DC 08/07/16 21:55 1 HOMEPACK Clindamycin HCl (Cleocin Cap) 300 mg ONE ONCE PO 08/07/16 21:30 08/07/16 21:31 DC 08/07/16 21:55 300 MG Acetaminophen/ Hydrocodone Bitart (Hydrocod/Apap Elix 7.5/325MG/ 15ML Home Pack) 1 homepack UD ONCE PO 08/07/16 21:30 08/07/16 21:31 DC 08/07/16 21:[address] [facility] ED Course 2121: The patient was evaluated in room A2. A complete history and physical exam was performed. 2129: Hydrocodone/Acetaminophen 7.5/325 mg PO homepack, Cleocin 300 mg PO, Zofran Odt 4 mg PO homepack. Medical Decision This is a 20-year-old male who presents with sore throat. Differential diagnosis includes strep pharyngitis, early peritonsillar abscess, infectious mononucleosis, viral syndrome. I did perform a limited focused review of portions of the patient's old chart on the electronic medical record. The patient was in the ED on July 15 for abdominal pain and vomiting when he had blood work. He was seen several weeks earlier and had a negative CT scan. I did evaluate the patient as noted above. He does have a bilateral exudative pharyngitis. His pain is worse on the left side but on visual examination as well as palpation there is no sign of peritonsillar abscess. I did warn him that it is possible may be very early and that he should return for any worsening symptoms and have very close follow up with his doctor. He has had mono in the past and so I did not check him for mononucleosis. I did treat the patient with clindamycin. He was discharged with a prescription for clindamycin. He was also given a Zofran home pack and Lortab elixir home pack for pain. Impression Primary Impression: Exudative pharyngitis Scribe Attestation The scribe's documentation has been prepared under my direct and personally reviewed by me in its entirety. I confirm that the note above accurately reflects all work, treatment, procedures, and medical decision making performed by me. Departure Information Dispostion Home / Self-Care Prescriptions Ondasetron Odt (ZOFRAN ODT) 4 Mg Tab 4 MG SL Q6H for Nausea, #6 TAB Prov: Pepito Martin M.D. 08/07/16 Clindamycin Hcl (CLEOCIN) 150 Mg Cap 300 MG PO TID for 10 Days, #60 CAP Prov: Pepito Martin M.D. 08/07/16 Referrals Martin Waters M.D. (PCP) Forms HOME CARE DOCUMENTATION FORM, IMPORTANT VISIT INFORMATION, WORK / SCHOOL INSTRUCTIONS Patient Instructions My [facility], Sore Throat Additional Instructions You have been examined and treated today on an emergency basis only. This is not a substitute for, or an effort to provide, complete comprehensive medical care. It is impossible to recognize and treat all injuries or illnesses in a single emergency department visit. It is therefore important that you follow up closely with your physician in 48 hours. Call as soon as possible for an appointment. Return for worsening symptoms or if you develop difficulty breathing, inability to swallow your saliva, difficulty opening her mouth, or any other concerning symptoms. Take probiotics or eat yogurt while on antibiotics to help avoid colon infection.
[2016-08-26] MEDS ORDERED: ACET-1256 PO (21:22)
== END 2016-08-07 22:04 | disposition home or self-care (01) ==
LOC: C.EDB 20:42 → C.EDA 22:04
DX: J02.9 Acute pharyngitis, unspecified (principal); F90.9 Attention-deficit hyperactivity disorder, unspecified type; F31.9 Bipolar disorder, unspecified; F17.210 Nicotine dependence, cigarettes, uncomplicated; Z83.3 Family history of diabetes mellitus; Z82.49 Family history of ischemic heart disease and other diseases of the circulatory system

== ENCOUNTER 2016-08-26 21:59 | Emergency (ER) | payer OTHER ==
[~2016-08-26] VITALS: Ht 170.2 cm; Wt 64.5 kg
[~2016-08-26 21:59] MED LIST changes: +ACET-1256 PO; -CLR10 PO; +HYDR-4313 PO; +ONDA4TAB10 SL; -ONDA4TAB46 PO; -PRLSR20 PO
[2016-08-26 22:02] VITALS: Ht 170.2 cm; Wt 64.5 kg
[2016-08-26] MEDS ORDERED: IBUP-103 PO (22:17)
[2016-08-26] MEDS ORDERED: ONDANSETRON HOME PACK 4MG OD TAB PO ONE (22:30)
--- NOTE | 2016-08-26 22:45 | EMERGENCY ROOM VISIT NOTE ---
ED Visit Note First contact with patient: 22:16 Chief Complaint: LEFT Arm Pain, Needs Temp Cast History of Present Illness: Patient is a 20-year-old male who presents to the emergency Department this evening for evaluation and requests a new cast. He reports that he was placed in a cast at Dr. Castrejon's office. He took the cast off 3 days ago as he reports that something is stabbing him in the wrist. He contacted them today and was directed the emergency Department for temp or a cast. He is uncertain what type fracture he is sustained. He was not seen in the emergency department for his initial injury. The patient reports persistent pain rating his discomfort an 8/10. He denies any numbness or tingling of the distal extremity. He reports nausea associated with his wrist pain. Medications: Reviewed and discussed with the patient. Allergies: Anti-inflammatories, diphenhydramine, lactose, penicillins, promethazine, tramadol PMH: No pertinent past medical history. SHx: Patient is a 20-year-old male who lives locally. ROS: All pertinent positive and negative review of systems are appropriately documented in the History of Present Illness. Physical Exam: VITAL SIGNS - Vital signs and nursing notes were reviewed. GENERAL - 20-year-old male appearing his stated age and in noticeable discomfort throughout the exam. MUSCULOSKELETAL - Active ROM of the LEFT wrist was limited in all directions. No edema noted. No palpable deformities. Subjective tenderness over the RADIAL styloid process. Mild tenderness with squeezing the forearm. No tenderness extending into the carpals. No point-tenderness over the anatomic snuffbox. Subjective pain elicited with supination and pronation of the forearm. Compartments are soft and malleable to palpation. NEUROLOGIC - SENSORY: Spinothalamic tract was found to be intact with ability to discriminate sharp versus dull sensation at the level of the LEFT elbow down to the fingertips. No sensory deficits of the dorsal column were appreciated utilizing light touch for evaluation. VASCULAR - Capillary refill was brisk. +3/5 radial pulse palpated. ED Course: Patient was seen and evaluated by myself. I am familiar with this patient for multiple previous visits to the emergency department. He presents today after taken off his cast. His exam is not concerning for an apartment syndrome or compressive etiology. He was placed in a volar splint for comfort. The patient remains neurovascularly intact pre-and post-lifting. He is requesting some for nausea for pain which is making his nausea worse. He initially declines anything for pain. He inform the food safety technician that he requests some pain at this time. I politely declined. The patient will follow closely with his orthopedic surgeon from today's visit. He will return for changing/ worsening symptoms. Patient discharged home in good condition. In the evaluation and treatment of this patient, the following differential diagnoses were considered: Wrist Sprain, Wrist Fracture, Wrist Dislocation, Scapholunate Dissociation, Carpal Fracture, Metacarpal Fracture, Radial Styloid Process Fracture, Ulnar Styloid Process Fracture, or Carpal Tunnel Syndrome. Impression: Requests Casting Discharge Instructions: Follow-up with orthopedic surgery as discussed. Return for any changing or worsening symptoms. Problem List Medical Problems: (1) Attn Deficit W Hyperact Status: Chronic (2) Bipolar Disorder, Unspecified Status: Chronic (3) Dental caries Status: Resolved (4) Exacerbation of chronic back pain Status: Resolved (5) Lumbago Status: Chronic (6) Migraine Unspecified W/O Intract Mgrn W/O Status Migrainosus Status: Chronic (7) Pain, dental Status: Resolved (8) Pharyngitis Status: Resolved (9) Thrush of mouth and esophagus Status: Resolved (10) Tobacco Use Disorder Status: Chronic Surgical Problems: (1) Inguinal hernia Status: Resolved Current/Historical Medications Scheduled Ondasetron Odt (Zofran Odt), 4 MG SL Q6H Scheduled PRN Acetaminophen (Tylenol), 1,000 MG PO Q6H PRN for Pain Ibuprofen Tab (Advil), 400-600 MG PO Q6H PRN for Pain Loratadine (Claritin), 10 MG PO DAILY PRN for ALLERGIC REACTION Allergies Coded Allergies: Penicillins (Verified Allergy, Severe, ANAPHYLAXIS, 07/15/16) Promethazine (Verified Allergy, Severe, SHORTNESS OF BREATH, 07/15/16) Tramadol (Verified Allergy, Severe, SHORTNESS OF BREATH, 07/15/16) Diphenhydramine (Verified Allergy, Unknown, Itchiness and trouble breathing., 07/15/16) Lactose (Verified Adverse Reaction, Intermediate, nausea, 07/15/16) Uncoded Allergies: ANTIINFLAMMATORIES (Adverse Reaction, Mild, migraines, 06/14/15) Vital Signs Date Time Temp Pulse Resp B/P Pulse Ox O2 Delivery O2 Flow Rate FiO2 08/26/16 23:21 36.8 83 18 148/80 99 08/26/16 22:02 36.8 83 18 148/80 99 Room Air Medications Administered Medications (Trade) Dose Ordered Sig/Eldon Route Start Time Stop Time Status Last Admin Dose Admin Ondansetron HCl (ZOFRAN ODT 4MG Home Pack) 1 homepack UD ONCE PO 08/26/16 22:30 08/26/16 22:31 DC 08/26/16 23:20 1 HOMEPACK Departure Information Impression Primary Impression: Cast discomfort Dispostion Home / Self-Care Condition GOOD Referrals Martin Waters M.D. (PCP) Patient Instructions My [facility] Additional Instructions Follow-up with orthopedic surgery as discussed. Return for any changing or worsening symptoms.
[2016-08-26] MEDS ORDERED: CLR10 PO (22:55)
[2016-08-26 23:21] VITALS: BP 148/80; PULSE 83; TEMP 36.8; O2SAT 99
== END 2016-08-26 23:05 | disposition home or self-care (01) ==
LOC: C.EDB 22:01
DX: Z46.89 Encounter for fitting and adjustment of other specified devices (principal); M79.602 Pain in left arm; F90.9 Attention-deficit hyperactivity disorder, unspecified type; F31.9 Bipolar disorder, unspecified; M54.5 Low back pain; G89.29 Other chronic pain; G43.909 Migraine, unspecified, not intractable, without status migrainosus; Z72.0 Tobacco use

== ENCOUNTER 2016-12-20 00:20 | Emergency (ER) | payer SELFPAY ==
[~2016-12-20] VITALS: Ht 170.2 cm; Wt 61.4 kg
[~2016-12-20 00:20] MED LIST changes: +CLR10 PO; -HYDR-4313 PO; +IBUP-103 PO
[2016-12-20 00:26] VITALS: TEMP 36.7; Ht 170.2 cm; Wt 61.4 kg
[2016-12-20] MEDS ORDERED: PANTOprazole SOD 40 MG TAB PO STA (00:47)
[2016-12-20] MEDS ORDERED: GI COCKTAIL PO ONE (01:00)
[2016-12-20 01:16] LABS: BASO % 0.3 %; BASO ABS # 0.03 K/uL (0-0.2); COMPLETE YES; EOS % 2.6 %; HEMATOCRIT 36.4 % (42-52); IG% 0.2 %; LYMPH % 17.3 %; LYMPH ABS # 1.97 K/uL (1.2-3.4); MEAN CELL VOLUME 87.5 fL (80-100); MEAN CORPUSCULAR HEMOGLOBIN 30.3 pg (25-34); MEAN CORPUSCULAR HGB CONC 34.6 g/dl (32-36); MEAN PLATELET VOLUME 9.1 fL (7.4-10.4); NEUT % 70.6 %; PLATELET COUNT 278 K/uL (130-400); RED BLOOD COUNT 4.16 M/uL (4.7-6.1); WHITE BLOOD COUNT 11.37 K/uL (4.8-10.8)
[2016-12-20] MEDS ORDERED: ALUMINUM/MAGNESIUM SUSP 30 ML UDC ONE (01:33)
[2016-12-20] MEDS ORDERED: LIDOCAINE HCL 2% JELLY 30 ML TUBE EXT ONE (01:34)
[2016-12-20 01:38] LABS: BUN/CREATININE RATIO 7.5 (10-20); CALCIUM 9.1 mg/dl (8.5-10.1); CREATININE 0.85 mg/dl (0.60-1.40); POTASSIUM 3.2 mmol/L (3.5-5.1)
[2016-12-20] MEDS ORDERED: LIDOCAINE HCL 2% VISC SOLN 20 ML UDC ONE (01:42)
[2016-12-20 02:46] LABS: URINE APPEARANCE CLEAR (CLEAR); URINE BILIRUBIN NEG (NEG); URINE COLOR YELLOW; URINE EPITHELIAL CELL AUTO >30 /lpf (0-5); URINE NITRITE NEG (NEG); URINE PH 6.5 (4.5-7.5); URINE SPECIFIC GRAVITY 1.011 (1.000-1.030); UROBILINOGEN NEG (NEG); ZZUR CULT IF INDIC CLEAN CATCH NO
[2016-12-20 02:51] LABS: MANUAL MICROSCOPIC REQUIRED? NO; REVIEW REQ? NO
[2016-12-20 03:03] LABS: BENZODIAZEPINE, URINE NEG (NEG); COCAINE,URINE NEG (NEG); PHENCYCLIDINE, URINE NEG (NEG)
[2016-12-20] MEDS ORDERED: PANT40TA PO (04:07)
[2016-12-20] MEDS ORDERED: ONDA4TAB10 SL (04:07)
[2016-12-20 04:10] VITALS: BP 137/79; PULSE 73; O2SAT 97
--- NOTE | 2016-12-20 08:40 | DIAGNOSTIC IMAGING REPORT ---
CHEST AND ABDOMEN 2 VIEWS HISTORY: Epigastric abdominal pain. COMPARISON: Chest and abdominal series 07/15/2016. FINDINGS: The lungs are clear. The cardiomediastinal silhouette is within normal limits. There is no pneumoperitoneum or pneumatosis. The bowel gas pattern is unremarkable. No evidence for bowel obstruction. No renal or ureteral calculi. Surgical clips seen within the right lower quadrant. Small amount of well-formed stool seen within the colon. IMPRESSION: No acute cardiopulmonary process. No evidence for bowel obstruction. Electronically signed by: Soham Casillas M.D. 12/20/2016 8:39 AM Dictated Date/Time: 12/20/2016 8:37 AM
--- NOTE | 2016-12-21 00:50 | EMERGENCY ROOM VISIT NOTE ---
History First contact with patient: 00:30 Chief Complaint: ABDOMINAL PAIN Stated Complaint: EXTREME STOMACH,CHEST PAIN,BLOOD IN BOWEL [facility], Nursing Triage Summary: Pt c/o midabdominal pain, states he had blood in his stool and emesis x1 that also contained blood. History of Present Illness The patient is a 21 year old male who presents to the Emergency Room with complaints of epigastric abdominal pain for the past 2 weeks. Patient states that he is employed and is at work almost every day, and is not able to follow- up with his primary care physician for this. He states that he had a small amount of red blood in on the toilet paper after wiping following a bowel movement today. He also states that he had one episode of emesis today that he thought had a scant amount of red blood as well. The patient has had similar symptoms like this in the past. He was scheduled to follow with GI, but missed the appointment because of working. The patient has not had fever or chills. He is complaining of intermittent earning chest pain. He has not taken anything [id number] for his discomfort. He rates his discomfort an 8/10. Review of Systems More than 10 systems were reviewed and otherwise negative with the exception of history of present illness. Past Medical/Surgical History Medical Problems: (1) Attn Deficit W Hyperact (2) Bipolar Disorder, Unspecified (3) Dental caries (4) Exacerbation of chronic back pain (5) Lumbago (6) Migraine Unspecified W/O Intract Mgrn W/O Status Migrainosus (7) Pain, dental (8) Pharyngitis (9) Thrush of mouth and esophagus (10) Tobacco Use Disorder Surgical Problems: (1) Inguinal hernia Family History Diabetes mellitus FH: cancer FH: gallbladder disease FH: heart disease FH: lung disease Hypertension Kidney disease or stones Social History Smoking Status: Current Every Day Smoker Alcohol Use: none Marital Status: single Housing Status: lives alone Occupation Status: employed Current/Historical Medications Scheduled Ondasetron Odt (Zofran Odt), 4 MG SL Q6H Pantoprazole (Protonix), 40 MG PO DAILY Scheduled PRN Acetaminophen (Tylenol), 1,000 MG PO Q6H PRN for Pain Ibuprofen Tab (Advil), 400-600 MG PO Q6H PRN for Pain Loratadine (Claritin), 10 MG PO DAILY PRN for ALLERGIC REACTION Physical Exam Vital Signs Date Time Temp Pulse Resp B/P (MAP) Pulse Ox O2 Delivery O2 Flow Rate FiO2 12/20/16 04:10 73 16 137/79 97 Room Air 12/20/16 03:19 73 18 140/83 Room Air 12/20/16 00:26 36.7 87 18 135/78 99 Room Air Pain Rating (0-10): 8.0 Physical Exam VITALS: Vitals are noted on the nurse's note and reviewed by myself. Vital signs stable. GENERAL: Well-developed, well-nourished, white male, who is in no acute distress and resting comfortably. Patient is cooperative with the examination. MOUTH: Mucous membranes moist. Tonsils are not enlarged. Pharynx without erythema, blood, or exudate. Uvula midline. Airway patent. NECK: Supple without nuchal rigidity. No lymphadenopathy. No thyromegaly. Cervical spine is nontender. HEART: Regular rate and rhythm without murmurs gallops or rubs. LUNGS: Clear to auscultation bilaterally without wheezes, rales or rhonchi. No retractions or accessory muscle use. ABDOMEN: Positive normal bowel sounds x 4. Soft with mild epigastric tenderness on palpation. No rebound or guarding. No lower abdominal tenderness. No CVA tenderness. : Perianal area without significant finding such as hemorrhoids or fissure. Digital rectal exam performed with a very scant amount of red blood. MUSCULOSKELETAL: No muscle atrophy, erythema, or edema noted. Full range of motion without joint tenderness in all extremities. Medical Decision & Procedures ER Provider Diagnostic Interpretation: CHEST AND ABDOMEN 2 VIEWS HISTORY: Epigastric abdominal pain. COMPARISON: Chest and abdominal series 07/15/2016. FINDINGS: The lungs are clear. The cardiomediastinal silhouette is within normal limits. There is no pneumoperitoneum or pneumatosis. The bowel gas pattern is unremarkable. No evidence for bowel obstruction. No renal or ureteral calculi. Surgical clips seen within the right lower quadrant. Small amount of well-formed stool seen within the colon. IMPRESSION: No acute cardiopulmonary process. No evidence for bowel obstruction. Laboratory Results 12/20/16 01:05 Red Blood Count 4.16, Mean Corpuscular Volume 87.5, Mean Corpuscular Hemoglobin 30.3, Mean Corpuscular Hemoglobin Concent 34.6, Mean Platelet Volume 9.1, Neutrophils (%) (Auto) 70.6, Lymphocytes (%) (Auto) 17.3, Monocytes (%) (Auto) 9.0, Eosinophils (%) (Auto) 2.6, Basophils (%) (Auto) 0.3, Neutrophils # (Auto) 8.03, Lymphocytes # (Auto) 1.97, Monocytes # (Auto) 1.02, Eosinophils # (Auto) 0.30, Basophils # (Auto) 0.03 12/20/16 01:05 Test 12/20/16 01:05 12/20/16 01:09 12/20/16 02:25 White Blood Count 11.37 K/uL (4.8-10.8) Red Blood Count 4.16 M/uL (4.7-6.1) Hemoglobin 12.6 g/dL (14.0-18.0) Hematocrit 36.4 % (42-52) Mean Corpuscular Volume 87.5 fL (80-100) Mean Corpuscular Hemoglobin 30.3 pg (25-34) Mean Corpuscular Hemoglobin Concent 34.6 g/dl (32-36) Platelet Count 278 K/uL (130-400) Mean Platelet Volume 9.1 fL (7.4-10.4) Neutrophils (%) (Auto) 70.6 % Lymphocytes (%) (Auto) 17.3 % Monocytes (%) (Auto) 9.0 % Eosinophils (%) (Auto) 2.6 % Basophils (%) (Auto) 0.3 % Neutrophils # (Auto) 8.03 K/uL (1.4-6.5) Lymphocytes # (Auto) 1.97 K/uL (1.2-3.4) Monocytes # (Auto) 1.02 K/uL (0.11-0.59) Eosinophils # (Auto) 0.30 K/uL (0-0.5) Basophils # (Auto) 0.03 K/uL (0-0.2) RDW Standard Deviation 39.4 fL (36.4-46.3) RDW Coefficient of Variation 12.2 % (11.5-14.5) Immature Granulocyte % (Auto) 0.2 % Immature Granulocyte # (Auto) 0.02 K/uL (0.00-0.02) Anion Gap 7.0 mmol/L (3-11) Est Creatinine Clear Calc Drug Dose 117.4 ml/min Estimated GFR () 142.3 Estimated GFR (Non- 122.8 BUN/Creatinine Ratio 7.5 (10-20) Calcium Level 9.1 mg/dl (8.5-10.1) Total Bilirubin 0.1 mg/dl (0.2-1) Aspartate Amino Transf (AST/SGOT) 13 U/L (15-37) Alanine Aminotransferase (ALT/SGPT) 18 U/L (12-78) Alkaline Phosphatase 51 U/L (45-117) Total Protein 6.9 gm/dl (6.4-8.2) Albumin 3.5 gm/dl (3.4-5.0) Globulin 3.4 gm/dl (2.5-4.0) Albumin/Globulin Ratio 1.0 (0.9-2) Lipase 179 U/L (73-393) Bedside Troponin I < 0.030 ng/ml (0-0.045) Urine Color YELLOW Urine Appearance CLEAR (CLEAR) Urine pH 6.5 (4.5-7.5) Urine Specific [place] 1.011 (1.000-1.030) Urine Protein NEG (NEG) Urine Glucose (UA) NEG (NEG) Urine Ketones NEG (NEG) Urine Occult Blood 1+ (NEG) Urine Nitrite NEG (NEG) Urine Bilirubin NEG (NEG) Urine Urobilinogen NEG (NEG) Urine Leukocyte Esterase NEG (NEG) Urine WBC (Auto) 1-5 /hpf (0-5) Urine RBC (Auto) 0-4 /hpf (0-4) Urine Hyaline Casts (Auto) 0 /lpf (0-5) Urine Epithelial Cells (Auto) >30 /lpf (0-5) Urine Bacteria (Auto) NEG (NEG) Urine Opiates Screen NEG (NEG) Urine Methadone, Qualitative NEG (NEG) Urine Barbiturates NEG (NEG) Urine Phencyclidine (PCP) Level NEG (NEG) Ur Amphetamine/Methamphetamine NEG (NEG) MDMA (Ecstasy) Screen NEG (NEG) Urine Benzodiazepines Screen NEG (NEG) Urine Cocaine Metabolite NEG (NEG) Urine Marijuana (THC) NEG (NEG) Medications Administered Medications (Trade) Dose Ordered Sig/Eldon Route Start Time Stop Time Status Last Admin Dose Admin Pantoprazole Sodium (Protonix Tab) 40 mg NOW STAT PO 12/20/16 00:47 12/20/16 00:50 DC 12/20/16 01:37 40 MG Al Hydroxide/Mg Hydroxide (Maalox Susp) 30 ml STK-MED ONCE .ROUTE 12/20/16 01:33 12/20/16 01:34 DC 12/20/16 01:37 30 ML Lidocaine HCl (Viscous Lidocaine 2% Soln) 20 ml STK-MED ONCE .ROUTE 12/20/16 01:42 12/20/16 01:43 DC 12/20/16 01:42 20 ML ED Course Physical exam and history were performed. Nursing notes, EMR, and Medication List were personally reviewed. Patient appears to have reports of epigastric abdominal pain for the past few weeks. He does not appear toxic on examination. IV access was established and labs were obtained. Plain films were performed. The patient was given Protonix and a GI cocktail here in the department. He does have a scant amount of bright red blood on digital rectal exam, however there was no obvious blood on guaiac otherwise. The patient's blood work is as above and was reviewed. He does he is also with a very slightly elevated white blood cell count of 11,000. There is no gross electrolyte imbalance. Troponin 1 is negative. Lipase and transaminases are nondiagnostic. Urine is without signs of infection. X-rays were obtained and do not show significant acute findings. I did request a stool sample from the patient, however he was not able to provide one for stool testing. I discussed options of care with the patient's. He likely has an internal hemorrhoid or healing abrasions/fissure causing bright red blood on rectal exam. He does not have occult blood in stool. I'm unsure what to make of his single episode of reported red blood emesis. He has had pain in his epigastrium for roughly the past 2 weeks, and this does favor a process such as peptic ulcer disease or GERD. The patient was concerned that his symptoms may be related to anxiety, and this could certainly exacerbate his symptoms. He states that he is stressed because he has to work most days of the week. I explained to the patient that he will need very close follow-up for his symptoms. He will be given a course of Protonix and Zofran. The patient needs to follow with his primary care physician and GI. He was asked to monitor his symptoms and use a stool softener. He was otherwise invited back to the ER with any new, worsening, or concerning symptoms. The chart was completed utilizing [email or web address] Speech Voice Recognition Software. Grammatical errors, random word insertions, pronoun errors, and incomplete sentences are an occasional consequence of this system due to software limitations, ambient noise, and hardware issues. Any formal questions or concerns about the content, text, or information contained within the body of this dictation should be directly addressed to the provider for clarification. . Medical Decision Differential diagnosis: Etiologies such as appendicitis, diverticulitis, PUD, biliary pathology, UTI, pancreatitis, obstruction, mesenteric ischemia, aortic pathology, infections, inflammatory bowel disease, renal colic, as well as others were entertained. Impression Primary Impression: Epigastric abdominal pain Departure Information Dispostion Home / Self-Care Condition GOOD Prescriptions Ondasetron Odt (ZOFRAN ODT) 4 Mg Tab 4 MG SL Q6H for Nausea, #10 TAB Prov: Edgar Waggoner PA-C 12/20/16 Pantoprazole (Protonix) 40 Mg Tab 40 MG PO DAILY for 14 Days, #14 TAB Prov: Edgar Waggoner PA-C 12/20/16 Forms HOME CARE DOCUMENTATION FORM, IMPORTANT VISIT INFORMATION Patient Instructions My [facility] Additional Instructions You were seen and evaluated today on an emergency basis only. This is not a substitute for, or an effort to provide, complete comprehensive medical care. It is not possible to recognize and treat all injuries or illnesses in a single emergency department visit. For this reason it is recommended that you followup with your primary care physician this week for ongoing care and evaluation. Take Protonix 40 mg daily for the next 2 weeks. Zofran 1 tablet every 6 hrs as needed for nausea. Take Tylenol 1000 mg every 6 hours for pain control. Drink plenty of fluids and remain well hydrated. Consider an [id number] stool softener such as Colace. You are welcome to return to the emergency department anytime with new, worsening, or concerning symptoms.
== END 2016-12-20 04:19 | disposition home or self-care (01) ==
LOC: C.EDB 00:21 → C.EDA 04:19
DX: R10.13 Epigastric pain (principal); F90.9 Attention-deficit hyperactivity disorder, unspecified type; F31.9 Bipolar disorder, unspecified; Z83.3 Family history of diabetes mellitus; Z82.49 Family history of ischemic heart disease and other diseases of the circulatory system; F17.200 Nicotine dependence, unspecified, uncomplicated

== ENCOUNTER 2017-03-03 20:17 | Emergency (ER) | payer SELFPAY ==
[~2017-03-03] VITALS: Ht 170.2 cm; Wt 62.9 kg
[2017-03-03 20:28] VITALS: Ht 170.2 cm; Wt 62.9 kg
[2017-03-03] MEDS ORDERED: KETOROLAC TROMETHAMINE 30 MG/ML VIAL IV STA (20:50)
[2017-03-03] MEDS ORDERED: ONDANSETRON INJ 2 MG/ML 2 ML VIAL IV STA (20:50)
[2017-03-03] MEDS ORDERED: SODIUM CHLORIDE 0.9% 1000ML 1,000 ML IV STA (20:50)
[2017-03-03 21:16] LABS: BASO % 0.6 %; BASO ABS # 0.03 K/uL (0-0.2); COMPLETE YES; EOS % 4.3 %; HEMATOCRIT 37.8 % (42-52); LYMPH % 22.9 %; LYMPH ABS # 1.06 K/uL (1.2-3.4); MEAN CELL VOLUME 84.2 fL (80-100); MEAN CORPUSCULAR HEMOGLOBIN 29.8 pg (25-34); MEAN CORPUSCULAR HGB CONC 35.4 g/dl (32-36); MEAN PLATELET VOLUME 9.4 fL (7.4-10.4); MONO % 17.1 %; NEUT % 55.1 %; PLATELET COUNT 210 K/uL (130-400); RED BLOOD COUNT 4.49 M/uL (4.7-6.1); WHITE BLOOD COUNT 4.63 K/uL (4.8-10.8)
--- NOTE | 2017-03-03 21:24 | EMERGENCY ROOM VISIT NOTE ---
History Report prepared by Eloy: Maine Steinberg Under the Supervision of: Dr. Herson Fernandes D.O. First contact with patient: 20:45 Chief Complaint: PAIN (GENERALIZED) Stated Complaint: BODY PAIN,HEADACHE,ACHES History of Present Illness The patient is a 21 year old male who presents to the Emergency Room with complaints of persistent body aches starting 3 days ago. The patient went to [facility] with his 3 friends over the weekend. Since returning, they have all gotten sick with flu symptoms. He has a fever of 102. He is also SOB. He notes that it was very windy and rita in [facility]. He has a rash on his arms and legs that his friends do not have. He thinks they look like flea bites, but he has not been around any pets recently. He stayed in a motel which he felt appeared clean. He reports nausea and sharp joint paints. He denies doing any activity out of the ordinary while in [facility]. He has a history of 2 hernia surgeries and allergies. He is currently trying to quit smoking. Source of History: patient Onset: 3 days ago Position: other (global) Quality: other (body aches) Timing: other (persistent) Associated Symptoms: + fevers, + SOB, + nausea, + rash Review of Systems See HPI for pertinent positives & negatives. A total of 10 systems reviewed and were otherwise negative. Past Medical & Surgical Medical Problems: (1) Attn Deficit W Hyperact (2) Bipolar Disorder, Unspecified (3) Dental caries (4) Exacerbation of chronic back pain (5) Lumbago (6) Migraine Unspecified W/O Intract Mgrn W/O Status Migrainosus (7) Pain, dental (8) Pharyngitis (9) Thrush of mouth and esophagus (10) Tobacco Use Disorder Surgical Problems: (1) Inguinal hernia Family History Diabetes mellitus FH: cancer FH: gallbladder disease FH: heart disease FH: lung disease Hypertension Kidney disease or stones Social History Smoking Status: Current Every Day Smoker Alcohol Use: none Marital Status: single Housing Status: lives alone Occupation Status: employed Current/Historical Medications Scheduled Cephalexin Monohydrate (Keflex), 500 MG PO QID Loratadine (Claritin), 10 MG PO DAILY Scheduled PRN Acetaminophen (Tylenol), 1,000 MG PO Q6H PRN for Pain Ibuprofen Tab (Advil), 400-600 MG PO Q6H PRN for Pain Allergies Coded Allergies: Penicillins (Verified Allergy, Severe, ANAPHYLAXIS, 03/03/17) Promethazine (Verified Allergy, Severe, SHORTNESS OF BREATH, 03/03/17) Tramadol (Verified Allergy, Severe, SHORTNESS OF BREATH, 03/03/17) Diphenhydramine (Verified Allergy, Unknown, Itchiness and trouble breathing., 03/03/17) Lactose (Verified Adverse Reaction, Intermediate, nausea, 03/03/17) Uncoded Allergies: ANTIINFLAMMATORIES (Adverse Reaction, Mild, migraines, 06/14/15) Physical Exam Vital Signs Date Time Temp Pulse Resp B/P (MAP) Pulse Ox O2 Delivery O2 Flow Rate FiO2 03/03/17 23:03 36.8 70 18 126/66 96 03/03/17 22:11 37.4 73 18 138/78 97 Room Air 03/03/17 21:19 37.4 91 18 139/83 99 Room Air 03/03/17 21:16 74 03/03/17 20:28 37.4 93 18 143/89 99 Room Air Physical Exam GENERAL: Patient is awake, alert, somewhat anxious appearing and uncomfortable. EYES: The conjunctivae are clear. The pupils are round and reactive. EARS, NOSE, MOUTH AND THROAT: The nose is without any evidence of any deformity. Mucous membranes are moist tongue is midline NECK: The neck is nontender and supple. RESPIRATORY: Lung sounds diminished in the right lung field. No tachypnea or conversational dyspnea noted. CARDIOVASCULAR: Regular rate and rhythm noted there no murmurs rubs or gallops normal S1 normal S2 GASTROINTESTINAL: The abdomen is soft. Bowel sounds are present in all quadrants. Abdomen is nontender MUSCULOSKELETAL/EXTREMITIES: There is no evidence of gross deformity full range of motion is noted in the hips and shoulders SKIN: There are diffuse erythematous raised areas on both the upper and lower extremities. Some excoriation noted. Appeared to be consistent with insect bites. NEUROLOGIC: Patient is awake alert and oriented x3 strength is symmetric patellar reflexes are 2+ bilaterally Medical Decision & Procedures ER Provider Diagnostic Interpretation: X-ray results as stated below per interpretation by me and the radiologist. TWO VIEW CHEST CLINICAL HISTORY: Fever. FINDINGS: PA and lateral chest radiographs are compared to study dated 12/20/2016 and correlated with chest CT dated 03/29/2015. The cardiomediastinal silhouette is unremarkable. The lungs and pleural spaces are clear. There is no pneumothorax. The bony thorax appears intact. IMPRESSION: No active disease in the chest. Electronically signed by: Augusto Pardo M.D. 03/03/2017 10:13 PM Dictated Date/Time: 03/03/2017 10:12 PM Laboratory Results 03/03/17 21:04 Red Blood Count 4.49, Mean Corpuscular Volume 84.2, Mean Corpuscular Hemoglobin 29.8, Mean Corpuscular Hemoglobin Concent 35.4, Mean Platelet Volume 9.4, Neutrophils (%) (Auto) 55.1, Lymphocytes (%) (Auto) 22.9, Monocytes (%) (Auto) 17.1, Eosinophils (%) (Auto) 4.3, Basophils (%) (Auto) 0.6, Neutrophils # (Auto ) 2.55, Lymphocytes # (Auto) 1.06, Monocytes # (Auto) 0.79, Eosinophils # (Auto ) 0.20, Basophils # (Auto) 0.03 03/03/17 21:04 Test 03/03/17 21:04 03/03/17 21:15 03/03/17 22:03 White Blood Count 4.63 K/uL (4.8-10.8) Red Blood Count 4.49 M/uL (4.7-6.1) Hemoglobin 13.4 g/dL (14.0-18.0) Hematocrit 37.8 % (42-52) Mean Corpuscular Volume 84.2 fL (80-100) Mean Corpuscular Hemoglobin 29.8 pg (25-34) Mean Corpuscular Hemoglobin Concent 35.4 g/dl (32-36) Platelet Count 210 K/uL (130-400) Mean Platelet Volume 9.4 fL (7.4-10.4) Neutrophils (%) (Auto) 55.1 % Lymphocytes (%) (Auto) 22.9 % Monocytes (%) (Auto) 17.1 % Eosinophils (%) (Auto) 4.3 % Basophils (%) (Auto) 0.6 % Neutrophils # (Auto) 2.55 K/uL (1.4-6.5) Lymphocytes # (Auto) 1.06 K/uL (1.2-3.4) Monocytes # (Auto) 0.79 K/uL (0.11-0.59) Eosinophils # (Auto) 0.20 K/uL (0-0.5) Basophils # (Auto) 0.03 K/uL (0-0.2) RDW Standard Deviation 35.9 fL (36.4-46.3) RDW Coefficient of Variation 11.6 % (11.5-14.5) Immature Granulocyte % (Auto) 0.0 % Immature Granulocyte # (Auto) 0.00 K/uL (0.00-0.02) Erythrocyte Sedimentation Rate 4 mm/hr (0-14) Anion Gap 3.0 mmol/L (3-11) Est Creatinine Clear Calc Drug Dose 126.2 ml/min Estimated GFR () 145.2 Estimated GFR (Non- 125.3 BUN/Creatinine Ratio 14.3 (10-20) Calcium Level 9.0 mg/dl (8.5-10.1) Total Bilirubin 0.2 mg/dl (0.2-1) Direct Bilirubin < 0.1 mg/dl (0-0.2) Aspartate Amino Transf (AST/SGOT) 14 U/L (15-37) Alanine Aminotransferase (ALT/SGPT) 17 U/L (12-78) Alkaline Phosphatase 58 U/L (45-117) Total Creatine Kinase 152 U/L (39-308) C-Reactive Protein 3.38 mg/dl (0-0.29) Total Protein 7.7 gm/dl (6.4-8.2) Albumin 4.1 gm/dl (3.4-5.0) Lipase 134 U/L (73-393) Lyme Disease IgG Antibody NEG (NEG) Lyme Disease IgM Antibody NEG (NEG) Monoscreen NEG (NEG) Influenza Type A (RT-PCR) Neg for Influ A (NEG) Influenza Type A Antigen Neg for Influ A (NEG) Influenza Type B Antigen Neg for Influ B (NEG) Influenza Type B (RT-PCR) Neg for Influ B (NEG) Urine Color YELLOW Urine Appearance CLOUDY (CLEAR) Urine pH 7.5 (4.5-7.5) Urine Specific [place] 1.015 (1.000-1.030) Urine Protein NEG (NEG) Urine Glucose (UA) NEG (NEG) Urine Ketones NEG (NEG) Urine Occult Blood NEG (NEG) Urine Nitrite NEG (NEG) Urine Bilirubin NEG (NEG) Urine Urobilinogen NEG (NEG) Urine Leukocyte Esterase NEG (NEG) Urine WBC (Auto) 0 /hpf (0-5) Urine RBC (Auto) 0-4 /hpf (0-4) Urine Hyaline Casts (Auto) 0 /lpf (0-5) Urine Epithelial Cells (Auto) 0-5 /lpf (0-5) Urine Bacteria (Auto) NEG (NEG) Laboratory results per my review. Medications Administered Medications (Trade) Dose Ordered Sig/Eldon Route Start Time Stop Time Status Last Admin Dose Admin Ketorolac Tromethamine (Toradol Inj) 30 mg NOW STAT IV 03/03/17 20:50 03/03/17 20:52 DC 03/03/17 21:02 30 MG Sodium Chloride 1,000 ml @ 999 mls/hr Q1H1M STAT IV 03/03/17 20:50 03/03/17 21:50 DC 03/03/17 21:02 999 MLS/HR Ondansetron HCl (Zofran Inj) 4 mg NOW STAT IV 03/03/17 20:50 03/03/17 20:52 DC 03/03/17 21:01 4 MG Oxycodone HCl (Roxicodone Immediate Rel Tab) 5 mg NOW STAT PO 03/03/17 21:28 03/03/17 21:30 DC 03/03/17 21:33 5 MG Cephalexin Monohydrate (Keflex Cap) 500 mg NOW ONCE PO 03/03/17 23:00 03/03/17 23:01 DC 03/03/17 22:59 500 MG Cephalexin Monohydrate (Keflex 500MG Home Pack) 1 homepack NOW ONCE PO 03/03/17 23:00 03/03/17 23:01 DC 03/03/17 22:59 1 HOMEPACK ED Course 2044: The patient was evaluated in room B11B. A complete history and physical examination were performed. 2049: Zofran Inj 4 mg IV, NSS 1000 ml @ 999 mls/hr IV, Toradol Inj 30 mg IV. 2127: Oxycodone HCl 5 mg PO. 2244: Upon reevaluation, the patient is resting comfortably. I discussed the results and treatment plan with him. He verbalized agreement of the treatment plan. He was discharged home. 2300: Keflex 500 mg 1 homepack, Keflex Cap 500 mg PO. Medical Decision Prior records/ancillary studies reviewed. Triage Nursing notes reviewed. The patient's history was concerning for fever. Differential diagnosis: Etiologies such as viral syndrome, otitis, pharyngitis, pneumonia, influenza, meningitis, urinary tract infection, sepsis, bacteremia, as well as others were entertained. The patient is a 21-year-old male who presented to the emergency department for an evaluation of fever and generalized pain. The patient had multiple areas on his body which appeared to be consistent with insect bites. He was recently traveling to [facility] and stated a hotel. This could represent flea bites or possibly bedbugs. I discussed patient's laboratory and radiographic studies with him. He was treated with IV fluids IV pain medicine IV antiemetics. He was also started on antibiotic. He was encouraged to rest and avoid any strenuous activity. He was also encouraged to continue using Motrin and Tylenol for pain and continue all medications as prescribed. Otherwise she was encouraged to return to the emergency department immediately if symptoms change worsen or the need arises. Medication Reconcilliation Current Medication List: was personally reviewed by me Blood Pressure Screening Patient's blood pressure: Normal blood pressure Blood pressure disposition: Did not require urgent referral Impression Primary Impression: Fever Additional Impression: Flea bite Scribe Attestation The scribe's documentation has been prepared under my direction and personally reviewed by me in its entirety. I confirm that the note above accurately reflects all work, treatment, procedures, and medical decision making performed by me. Departure Information Dispostion Home / Self-Care Prescriptions Cephalexin Monohydrate (KEFLEX) 500 Mg Cap 500 MG PO QID, #28 CAP Prov: Herson Fernandes, 03/03/17 Referrals Martin Waters M.D. (PCP) Forms HOME CARE DOCUMENTATION FORM, IMPORTANT VISIT INFORMATION, WORK / SCHOOL INSTRUCTIONS Patient Instructions ED Fever Control, My [facility] Additional Instructions Continue using Motrin and Tylenol as directed for fever and body aches. Drink plenty clear liquids. Follow-up with your family within the next few days. Return to the emergency department immediately if symptoms change worsen or the need arises. Problem Qualifiers Primary Impression: Fever Fever type: unspecified Qualified Codes: R50.9 - Fever, unspecified Additional Impression: Flea bite Encounter type: initial encounter Qualified Codes: W57.XXXA - Bitten or stung by nonvenomous insect and other nonvenomous arthropods, initial encounter
[2017-03-03] MEDS ORDERED: OXYCODONE HCL IR 5 MG TAB (IMMEDIATE RELEASE) PO STA (21:28)
[2017-03-03 21:40] LABS: ALT/SGPT 17 U/L (12-78); BLOOD UREA NITROGEN 12 mg/dl (7-18); BUN/CREATININE RATIO 14.3 (10-20); C-REACTIVE PROTEIN 3.38 mg/dl (0-0.29); CARBON DIOXIDE 29 mmol/L (21-32); CHLORIDE 106 mmol/L (98-107); CREATININE 0.81 mg/dl (0.60-1.40); GLUCOSE 90 mg/dl (70-99); POTASSIUM 3.2 mmol/L (3.5-5.1); SODIUM 138 mmol/L (136-145)
[2017-03-03 21:43] LABS: ALKALINE PHOSPHATASE 58 U/L (45-117); AST/SGOT 14 U/L (15-37)
[2017-03-03 22:13] LABS: LYME DISEASE AB IGG NEG (NEG); LYME DISEASE AB IGM NEG (NEG)
--- NOTE | 2017-03-03 22:14 | DIAGNOSTIC IMAGING REPORT ---
TWO VIEW CHEST CLINICAL HISTORY: Fever. FINDINGS: PA and lateral chest radiographs are compared to study dated 12/20/2016 and correlated with chest CT dated 03/29/2015. The cardiomediastinal silhouette is unremarkable. The lungs and pleural spaces are clear. There is no pneumothorax. The bony thorax appears intact. IMPRESSION: No active disease in the chest. Electronically signed by: Augusto Pardo M.D. 03/03/2017 10:13 PM Dictated Date/Time: 03/03/2017 10:12 PM
[2017-03-03 22:18] LABS: URINE APPEARANCE CLOUDY (CLEAR); URINE BILIRUBIN NEG (NEG); URINE COLOR YELLOW; URINE EPITHELIAL CELL AUTO 0-5 /lpf (0-5); URINE NITRITE NEG (NEG); URINE PH 7.5 (4.5-7.5); URINE SPECIFIC GRAVITY 1.015 (1.000-1.030); UROBILINOGEN NEG (NEG)
[2017-03-03 22:27] LABS: INFLUENZA A PCR Neg for Influ A (NEG); INFLUENZA B PCR Neg for Influ B (NEG)
[2017-03-03 22:33] LABS: MANUAL MICROSCOPIC REQUIRED? NO; REVIEW REQ? NO
[2017-03-03] MEDS ORDERED: CEPH500C2 PO (22:51)
[2017-03-03] MEDS ORDERED: CEPHALEXIN 500MG HOME PACK 1 EA BTL PO ONE (23:00)
[2017-03-03] MEDS ORDERED: CEPHALEXIN MONOHYDRATE 250 MG CAP PO ONE (23:00)
[2017-03-03 23:03] VITALS: BP 126/66; PULSE 70; TEMP 36.8; O2SAT 96
== END 2017-03-03 23:04 | disposition home or self-care (01) ==
LOC: C.EDB 20:18
DX: R50.9 Fever, unspecified (principal); S40.861A Insect bite (nonvenomous) of right upper arm, initial encounter; S40.862A Insect bite (nonvenomous) of left upper arm, initial encounter; S80.861A Insect bite (nonvenomous), right lower leg, initial encounter; S80.862A Insect bite (nonvenomous), left lower leg, initial encounter; W57.XXXA Bitten or stung by nonvenomous insect and other nonvenomous arthropods, initial encounter; M79.1 Myalgia; F31.9 Bipolar disorder, unspecified; F90.9 Attention-deficit hyperactivity disorder, unspecified type; F17.200 Nicotine dependence, unspecified, uncomplicated; Z88.0 Allergy status to penicillin; Z88.8 Allergy status to other drugs, medicaments and biological substances; Z91.011 Allergy to milk products; Z83.3 Family history of diabetes mellitus; Z80.9 Family history of malignant neoplasm, unspecified; Z83.79 Family history of other diseases of the digestive system; Z82.49 Family history of ischemic heart disease and other diseases of the circulatory system; Z84.1 Family history of disorders of kidney and ureter

== ENCOUNTER 2017-07-13 12:49 | Emergency (ER) | payer SELFPAY ==
[~2017-07-13 12:49] MED LIST changes: +LIDO1PAD2 TD; -ONDA4TAB10 SL
[2017-07-13 12:57] VITALS: TEMP 36.7
[2017-07-13] MEDS ORDERED: CEFAZOLIN IV 2,000 MG in DEXTROSE 5% 50ML 50 ML IV STA (12:58)
[2017-07-13] MEDS ORDERED: DIPHTHERIA/TETANUS/PERTUSSIS 0.5 ML SYR/VIAL IM. ONE (13:00)
[2017-07-13] MEDS: MoRPHine SULFATE 4 MG/ML 1 ML CARP\\VIAL IV PRN ×3 (13:06→13:37)
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
--- NOTE | 2017-07-13 13:24 | DIAGNOSTIC IMAGING REPORT ---
LEFT HAND 3 VIEWS HISTORY: Left hand injury. COMPARISON: None. FINDINGS: Nondisplaced fracture at the base of the third metacarpal. This extends to the carpometacarpal joint. No dislocation. Soft tissue swelling and soft tissue gas at the dorsum of the hand. No radiopaque foreign bodies. IMPRESSION: Nondisplaced fracture at the proximal third metacarpal. Associated soft tissue injury at the dorsum of the hand. Electronically signed by: Soham Casillas M.D. 07/13/2017 1:23 PM Dictated Date/Time: 07/13/2017 1:20 PM
[2017-07-13 13:25] LABS: BASO % 0.3 %; BASO ABS # 0.03 K/uL (0-0.2); EOS % 3.1 %; EOS ABS # 0.27 K/uL (0-0.5); HEMATOCRIT 37.5 % (42-52); HEMOGLOBIN 13.3 g/dL (14.0-18.0); IG# 0.02 K/uL (0.00-0.02); LYMPH ABS # 2.24 K/uL (1.2-3.4); MEAN CELL VOLUME 84.5 fL (80-100); MEAN CORPUSCULAR HGB CONC 35.5 g/dl (32-36); MEAN PLATELET VOLUME 9.3 fL (7.4-10.4); MONO ABS # 0.69 K/uL (0.11-0.59); NEUT % 62.4 %; NEUT ABS # 5.36 K/uL (1.4-6.5); PLATELET COUNT 313 K/uL (130-400); RED CELL DISTRIBUTION WIDTH CV 12.6 % (11.5-14.5); RED CELL DISTRIBUTION WIDTH SD 38.8 fL (36.4-46.3); WHITE BLOOD COUNT 8.61 K/uL (4.8-10.8)
[2017-07-13 13:34] LABS: PTT PATIENT 21.6 SECONDS (21.0-31.0)
[2017-07-13 13:49] LABS: ALT/SGPT 18 U/L (12-78); AST/SGOT 13 U/L (15-37); BLOOD UREA NITROGEN 15 mg/dl (7-18); CALCIUM 9.2 mg/dl (8.5-10.1); CARBON DIOXIDE 25 mmol/L (21-32); CREATININE 1.22 mg/dl (0.60-1.40); GLUCOSE 118 mg/dl (70-99); LIPASE 184 U/L (73-393); POTASSIUM 3.5 mmol/L (3.5-5.1); SODIUM 141 mmol/L (136-145)
[2017-07-13 13:52] LABS: ALKALINE PHOSPHATASE 62 U/L (45-117); TOTAL PROTEIN 7.4 gm/dl (6.4-8.2)
[2017-07-13] MEDS ORDERED: ONDANSETRON INJ 2 MG/ML 2 ML VIAL IV STA (14:08)
[2017-07-13] MEDS ORDERED: CEPH500C2 PO (16:05)
[2017-07-13] MEDS ORDERED: OXYC1TAB3 PO (16:05)
[2017-07-13 16:34] VITALS: BP 121/60; PULSE 101; O2SAT 98
== END 2017-07-13 16:40 | disposition home or self-care (01) ==
LOC: C.EDB 12:50 → C.EDA 16:40
DX: S61.402A Unspecified open wound of left hand, initial encounter (principal); S62.34 Nondisplaced fracture of base of other metacarpal bone; W34.00XA Accidental discharge from unspecified firearms or gun, initial encounter; Y93.89 Activity, other specified; K02.9 Dental caries, unspecified; Z23 Encounter for immunization; F17.200 Nicotine dependence, unspecified, uncomplicated; Z86.59 Personal history of other mental and behavioral disorders; Z87.19 Personal history of other diseases of the digestive system; Z83.3 Family history of diabetes mellitus; Z82.49 Family history of ischemic heart disease and other diseases of the circulatory system; Z83.79 Family history of other diseases of the digestive system; Z84.1 Family history of disorders of kidney and ureter; Z88.0 Allergy status to penicillin; Z88.8 Allergy status to other drugs, medicaments and biological substances; Z88.5 Allergy status to narcotic agent; Z88.6 Allergy status to analgesic agent; Z91.011 Allergy to milk products

== ENCOUNTER 2017-07-15 17:55 | Inpatient (IN) | payer SELFPAY ==
[~2017-07-15] VITALS: Ht 170.2 cm; Wt 64.0 kg
[~2017-07-15 17:55] MED LIST changes: -ACET-1256 PO; +CEPH500C2 PO; +OXYC1TAB3 PO
[2017-07-15] MEDS ORDERED: OXYCODONE HCL IR 5 MG TAB (IMMEDIATE RELEASE) PO STA (18:44)
[2017-07-15] MEDS ORDERED: ONDANSETRON 4MG OD TAB PO STA (18:44)
[2017-07-15] MEDS ORDERED: DOXYCYCLINE IV 100 MG in DEXTROSE 5% 100ML 100 ML IV ONE (20:00)
[2017-07-15 20:04] LABS: BASO % 0.4 %; BASO ABS # 0.03 K/uL (0-0.2); EOS % 2.6 %; HEMATOCRIT 36.6 % (42-52); IG# 0.01 K/uL (0.00-0.02); LYMPH % 21.6 %; LYMPH ABS # 1.63 K/uL (1.2-3.4); MEAN CELL VOLUME 84.1 fL (80-100); MEAN CORPUSCULAR HEMOGLOBIN 29.9 pg (25-34); MEAN CORPUSCULAR HGB CONC 35.5 g/dl (32-36); MONO % 5.8 %; MONO ABS # 0.44 K/uL (0.11-0.59); NEUT % 69.5 %; NEUT ABS # 5.25 K/uL (1.4-6.5); PLATELET COUNT 255 K/uL (130-400); RED CELL DISTRIBUTION WIDTH CV 12.4 % (11.5-14.5); RED CELL DISTRIBUTION WIDTH SD 38.3 fL (36.4-46.3); WHITE BLOOD COUNT 7.56 K/uL (4.8-10.8)
[2017-07-15] MEDS ORDERED: LDDP5 TOP (20:05)
[2017-07-15] MEDS ORDERED: MoRPHine SULFATE 2 MG/ML CARP IV STA (20:07)
[2017-07-15 20:30] LABS: ALBUMIN 3.9 gm/dl (3.4-5.0); ALT/SGPT 16 U/L (12-78); BLOOD UREA NITROGEN 13 mg/dl (7-18); CALCIUM 8.8 mg/dl (8.5-10.1); CARBON DIOXIDE 24 mmol/L (21-32); CREATININE 0.81 mg/dl (0.60-1.40); GLUCOSE 92 mg/dl (70-99); POTASSIUM 3.6 mmol/L (3.5-5.1); SODIUM 139 mmol/L (136-145)
[2017-07-15 20:31] LABS: ALKALINE PHOSPHATASE 55 U/L (45-117); AST/SGOT 14 U/L (15-37); TOTAL PROTEIN 7.3 gm/dl (6.4-8.2)
[2017-07-15] MEDS ORDERED: KETOROLAC TROMETHAMINE 30 MG/ML VIAL IV STA (21:04)
[2017-07-15] MEDS ORDERED: MoRPHine SULFATE 4 MG/ML 1 ML CARP\\VIAL IV PRN (22:30)
[2017-07-15] MEDS ORDERED: OPTIRAY 320 IV PRN (22:30)
[2017-07-15] MEDS ORDERED: IBUPROFEN 200 MG TAB PO PRN (22:30)
[2017-07-15 22:40] VITALS: BP 142/74; PULSE 69; TEMP 37.2; BMI 22.1
[2017-07-15] MEDS ORDERED: OXYCODONE/ACETAMINOPHEN 5-325 TAB ONE (22:56)
[2017-07-15] MEDS ORDERED: hydrOXYzine HCL 10 MG TAB PO PRN (23:00)
[2017-07-15] MEDS ORDERED: PROCHLORPERAZINE INJ 5 MG in SYRINGE 4 ML IV PRN (23:00)
[2017-07-15] MEDS ORDERED: NSS + 20MEQ KCL 1000ML 1,000 ML IV ONE (23:00)
[2017-07-15] MEDS ORDERED: ACETAMINOPHEN 325 MG TAB PO PRN (23:00)
[2017-07-15] MEDS: OXYCODONE/ACETAMINOPHEN 5-325 TAB PO PRN (23:03)
[2017-07-15 23:04] VITALS: BP 146/89; PULSE 69; TEMP 37.2; O2SAT 98
[2017-07-15] MEDS ORDERED: CLINDAMYCIN IV 600 MG in DEXTROSE 5% 50ML 50 ML IV ONE (23:30)
[2017-07-16] VITALS (7 sets, daily range): BP systolic 105–134; BP diastolic 63–78; PULSE 65–81; TEMP 36.8–37; O2SAT 95–100; Ht 170.2 cm; Wt 64.0 kg
[2017-07-16] MEDS ORDERED: CIPROFLOXACIN / D5W 400 MG in PREMIXED IN D5W 200 ML IV ONE
[2017-07-16] MEDS ORDERED: CLINDAMYCIN CONSULT ACTIVE PRN (00:15)
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
[2017-07-16] MEDS: OXYCODONE/ACETAMINOPHEN 5-325 TAB PO PRN ×3 (03:37→21:50)
[2017-07-16] MEDS ORDERED: MoRPHine SULFATE 4 MG/ML 1 ML CARP\\VIAL IV PRN (03:45)
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
[2017-07-16 05:39] LABS: BASO % 0.5 %; BASO ABS # 0.03 K/uL (0-0.2); EOS % 4.3 %; EOS ABS # 0.27 K/uL (0-0.5); HEMATOCRIT 35.9 % (42-52); HEMOGLOBIN 12.5 g/dL (14.0-18.0); IG# 0.02 K/uL (0.00-0.02); LYMPH % 37.8 %; LYMPH ABS # 2.37 K/uL (1.2-3.4); MEAN CELL VOLUME 84.5 fL (80-100); MEAN CORPUSCULAR HEMOGLOBIN 29.4 pg (25-34); MEAN CORPUSCULAR HGB CONC 34.8 g/dl (32-36); MONO % 8.8 %; MONO ABS # 0.55 K/uL (0.11-0.59); NEUT % 48.3 %; NEUT ABS # 3.03 K/uL (1.4-6.5); PLATELET COUNT 243 K/uL (130-400); RED CELL DISTRIBUTION WIDTH CV 12.5 % (11.5-14.5); RED CELL DISTRIBUTION WIDTH SD 38.1 fL (36.4-46.3); RETIC COUNT % 0.6 % (0.5-2.0); WHITE BLOOD COUNT 6.27 K/uL (4.8-10.8)
[2017-07-16] MEDS: CLINDAMYCIN IV 600 MG in DEXTROSE 5% 50ML 50 ML IV SCH ×3 (06:28→22:42)
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
[2017-07-16] MEDS: KETOROLAC TROMETHAMINE 15 MG/ML VIAL IV. PRN ×2 (07:53→18:04)
[2017-07-16] MEDS ORDERED: DOXYCYCLINE IV 100 MG in DEXTROSE 5% 100ML 100 ML IV SCH (08:00)
[2017-07-16] MEDS: LACTOBACILLUS ACIDOPHILUS (FLORANEX) TAB PO SCH ×3 (08:30→18:04)
[2017-07-16] MEDS ORDERED: CIPROFLOXACIN CONSULT ACTIVE PRN (09:00)
[2017-07-16] MEDS ORDERED: MoRPHine SULFATE 4 MG/ML 1 ML CARP\\VIAL ONE (09:45)
[2017-07-16] MEDS: MoRPHine SULFATE 4 MG/ML 1 ML CARP\\VIAL IV PRN ×3 (09:52→20:00)
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
[2017-07-16] MEDS: CIPROFLOXACIN 400MG / D5W IV SCH (11:57)
[2017-07-16] MEDS ORDERED: BACITRACIN 50000 UNIT VIAL ONE (15:18)
[2017-07-16] MEDS ORDERED: BUPIVACAINE 0.5 % 5 MG/1 ML MPF 30ML VIAL ONE (15:19)
[2017-07-16] MEDS ORDERED: MIDAZOLAM HCL 1 MG/ML 2ML VIAL ONE (15:19)
[2017-07-16] MEDS ORDERED: FENTANYL CITRATE INJ 50 MCG/1 ML 2 ML VIAL ONE ×2 (15:19→16:41)
[2017-07-16] MEDS ORDERED: HYDROmorphone INJ 1 MG/ML SYR IV PRN (15:45)
[2017-07-16] MEDS ORDERED: LABETALOL HCL IV 5 MG/ML 20ML IV PRN (15:45)
[2017-07-16] MEDS ORDERED: MEPERIDINE HCL 25 MG/ML CARP IV PRN (15:45)
[2017-07-16] MEDS ORDERED: EpHEDrine SULFATE INJ 50 MG/ML AMP IV PRN (15:45)
[2017-07-16] MEDS ORDERED: ONDANSETRON INJ 2 MG/ML 2 ML VIAL IV PRN ×2 (15:45→16:30)
[2017-07-16] MEDS ORDERED: ATROPINE SULFATE 0.1 MG/ML 5ML SYR IV PRN (15:45)
[2017-07-16] MEDS ORDERED: DEXAMETHASONE SOD INJ 4 MG/ML VIAL ONE (16:26)
[2017-07-16] MEDS ORDERED: PROPOFOL IV EMULSION 10 MG/ML 20 ML VIAL IV ONE (16:26)
[2017-07-16] MEDS ORDERED: LIDOCAINE HCL 2% 2 ML VIAL (20MG/ML) ONE (16:26)
[2017-07-16] MEDS ORDERED: ONDANSETRON INJ 2 MG/ML 2 ML VIAL ONE (16:26)
[2017-07-16] MEDS ORDERED: ALUMINUM/MAGNESIUM/SIMETH (MAALOX MAX) 30 ML UDC PO PRN (16:30)
[2017-07-16] MEDS ORDERED: SOD PHOSPHATE/SOD BIPHOSPHATE ENEMA 132 ML BTL PR PRN (16:30)
[2017-07-16] MEDS ORDERED: MAGNESIUM HYDROXIDE SUSP 30 ML UDC PO PRN (16:30)
[2017-07-16] MEDS ORDERED: ZOLPIDEM TARTRATE 5 MG TAB PO PRN (16:30)
[2017-07-16] MEDS ORDERED: BISACODYL 10 MG SUPP PR PRN (16:30)
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
[2017-07-16] MEDS: FENTANYL CITRATE INJ 50 MCG/1 ML 2 ML VIAL IV PRN ×2 (16:54→17:00)
--- NOTE | 2017-07-16 17:39 | Anesthesiology Progress Note ---
Anesthesia Post Op Note Date & Time Jul 16, 2017 at 17:39 Vital Signs Pain Intensity: 3 Vital Signs Past 12 Hours Date Time Temp Pulse Resp B/P (MAP) Pulse Ox O2 Delivery O2 Flow Rate FiO2 07/16/17 17:20 36.4 72 16 133/78 98 Nasal Cannula 3 07/16/17 17:10 72 16 142/80 98 Nasal Cannula 3 07/16/17 17:00 80 16 147/84 98 Oxymask 6 07/16/17 16:50 69 16 145/91 98 Oxymask 6 07/16/17 16:43 37.2 84 16 123/99 97 Oxymask 6 07/16/17 08:11 Room Air 07/16/17 07:35 37.0 65 16 120/78 (92) 100 Room Air Notes Mental Status: alert / awake / arousable, participated in evaluation Pt Amnestic to Procedure: Yes Nausea / Vomiting: adequately controlled Pain: adequately controlled Airway Patency, RR, SpO2: stable & adequate BP & HR: stable & adequate Hydration State: stable & adequate Anesthetic Complications: no major complications apparent
[2017-07-16] MEDS: POTASSIUM CHLORIDE INJ 10 MEQ in SODIUM CHLORIDE 0.9% 1000ML 1,000 ML IV SCH (18:05)
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
[2017-07-16] MEDS: SENNA 8.6 MG TAB PO SCH (21:47)
[2017-07-16] MEDS: DOCUSATE SODIUM 100 MG CAP PO SCH (21:47)
[2017-07-17] MEDS: MoRPHine SULFATE 4 MG/ML 1 ML CARP\\VIAL IV PRN ×4 (00:04→14:03)
[2017-07-17] MEDS: CIPROFLOXACIN 400MG / D5W IV SCH ×2 (00:04→11:50)
[2017-07-17] MEDS: POTASSIUM CHLORIDE INJ 10 MEQ in SODIUM CHLORIDE 0.9% 1000ML 1,000 ML IV SCH ×2 (03:09→13:54)
[2017-07-17] MEDS: KETOROLAC TROMETHAMINE 15 MG/ML VIAL IV. PRN ×2 (03:09→21:47)
[2017-07-17 03:15] VITALS: BP 122/68; PULSE 81; TEMP 36.6; O2SAT 98
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
[2017-07-17 06:06] LABS: BASO % 0.1 %; BASO ABS # 0.01 K/uL (0-0.2); EOS % 0.3 %; EOS ABS # 0.03 K/uL (0-0.5); HEMATOCRIT 34.5 % (42-52); HEMOGLOBIN 11.9 g/dL (14.0-18.0); IG# 0.01 K/uL (0.00-0.02); LYMPH % 13.3 %; LYMPH ABS # 1.21 K/uL (1.2-3.4); MEAN CELL VOLUME 84.4 fL (80-100); MEAN CORPUSCULAR HEMOGLOBIN 29.1 pg (25-34); MEAN CORPUSCULAR HGB CONC 34.5 g/dl (32-36); MEAN PLATELET VOLUME 9.6 fL (7.4-10.4); MONO % 7.4 %; MONO ABS # 0.67 K/uL (0.11-0.59); NEUT % 78.8 %; NEUT ABS # 7.15 K/uL (1.4-6.5); PLATELET COUNT 254 K/uL (130-400); RED CELL DISTRIBUTION WIDTH CV 12.1 % (11.5-14.5); RED CELL DISTRIBUTION WIDTH SD 37.5 fL (36.4-46.3); WHITE BLOOD COUNT 9.08 K/uL (4.8-10.8)
[2017-07-17] MEDS: CLINDAMYCIN IV 600 MG in DEXTROSE 5% 50ML 50 ML IV SCH ×3 (06:31→22:36)
[2017-07-17 06:46] LABS: CALCIUM 8.8 mg/dl (8.5-10.1); CREATININE 1.01 mg/dl (0.60-1.40)
[2017-07-17 07:15] VITALS: BP 118/70; PULSE 71; TEMP 36.7; O2SAT 99
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
[2017-07-17] MEDS: OXYCODONE/ACETAMINOPHEN 5-325 TAB PO PRN ×4 (07:45→20:02)
[2017-07-17] MEDS: DOCUSATE SODIUM 100 MG CAP PO SCH ×2 (09:43→20:49)
[2017-07-17] MEDS: LACTOBACILLUS ACIDOPHILUS (FLORANEX) TAB PO SCH ×3 (09:44→17:21)
[2017-07-17 10:38] VITALS: BP 134/77; PULSE 78; TEMP 37; O2SAT 98
[2017-07-17 14:50] VITALS: BP 130/75; PULSE 60; TEMP 37.1; O2SAT 100
[2017-07-17 16:00] VITALS: O2SAT 100
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
[2017-07-17] MEDS ORDERED: MoRPHine SULFATE 2 MG/ML CARP IV PRN (16:45)
[2017-07-17] MEDS: SENNA 8.6 MG TAB PO SCH (20:49)
[2017-07-17 23:45] VITALS: BP 113/61; PULSE 71; TEMP 36.7; O2SAT 100
[2017-07-18] MEDS: CIPROFLOXACIN 400MG / D5W IV SCH (00:41)
[2017-07-18] MEDS: POTASSIUM CHLORIDE INJ 10 MEQ in SODIUM CHLORIDE 0.9% 1000ML 1,000 ML IV SCH (00:42)
[2017-07-18] MEDS: OXYCODONE/ACETAMINOPHEN 5-325 TAB PO PRN ×2 (00:42→06:43)
[2017-07-18 05:59] LABS: HEMATOCRIT 32.4 % (42-52); HEMOGLOBIN 11.3 g/dL (14.0-18.0); MEAN CELL VOLUME 84.6 fL (80-100); MEAN CORPUSCULAR HEMOGLOBIN 29.5 pg (25-34); MEAN CORPUSCULAR HGB CONC 34.9 g/dl (32-36); MEAN PLATELET VOLUME 9.1 fL (7.4-10.4); PLATELET COUNT 223 K/uL (130-400); RED CELL DISTRIBUTION WIDTH CV 12.4 % (11.5-14.5); RED CELL DISTRIBUTION WIDTH SD 38.1 fL (36.4-46.3); WHITE BLOOD COUNT 6.66 K/uL (4.8-10.8)
[2017-07-18 06:40] LABS: CALCIUM 8.4 mg/dl (8.5-10.1); CREATININE 0.81 mg/dl (0.60-1.40); POTASSIUM 4.1 mmol/L (3.5-5.1)
[2017-07-18] MEDS: CLINDAMYCIN IV 600 MG in DEXTROSE 5% 50ML 50 ML IV SCH (06:41)
[2017-07-18] MEDS: LACTOBACILLUS ACIDOPHILUS (FLORANEX) TAB PO SCH (07:33)
[2017-07-18] MEDS: DOCUSATE SODIUM 100 MG CAP PO SCH (07:33)
[2017-07-18 07:55] VITALS: BP 118/74; PULSE 53; TEMP 36.8; O2SAT 98
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
[2017-07-18] MEDS ORDERED: CIPR-255 PO (08:22)
[2017-07-18] MEDS ORDERED: OXYC-57 PO (08:22)
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
[2017-07-18] MEDS ORDERED: ONDA8TAB6 PO (08:32)
[2017-07-18] MEDS: KETOROLAC TROMETHAMINE 15 MG/ML VIAL IV. PRN (09:44)
[2017-07-18 09:52] VITALS: BP 118/74; PULSE 53; TEMP 36.8; O2SAT 98
== END 2017-07-18 10:15 | disposition home or self-care (01) | DRG 580 ==
LOC: C.EDB 17:57 → C.3E 21:51 → ENRESERV 22:20
PROVIDERS: ADMIT Family Medicine; ATTEND Family Medicine
PROC: 0KBD0ZZ Excision of Left Hand Muscle, Open Approach (ICD-10-PCS; principal; 2017-07-16 09:00)
PROC: 0LB80ZZ Excision of Left Hand Tendon, Open Approach (ICD-10-PCS; principal; 2017-07-16 09:00)
PROC: 0PCQ0ZZ Extirpation of Matter from Left Metacarpal, Open Approach (ICD-10-PCS; principal; 2017-07-16 09:00)
PROC: 0J9K0ZZ Drainage of Left Hand Subcutaneous Tissue and Fascia, Open Approach (ICD-10-PCS; principal; 2017-07-16 09:00)
DX: L03.114 Cellulitis of left upper limb (principal); L02.512 Cutaneous abscess of left hand; S62.313B Displaced fracture of base of third metacarpal bone, left hand, initial encounter for open fracture; S66.912A Strain of unspecified muscle, fascia and tendon at wrist and hand level, left hand, initial encounter; W32.0XXA Accidental handgun discharge, initial encounter; Y93.89 Activity, other specified; D64.9 Anemia, unspecified; F17.210 Nicotine dependence, cigarettes, uncomplicated; Z88.0 Allergy status to penicillin; Z88.5 Allergy status to narcotic agent; Z88.8 Allergy status to other drugs, medicaments and biological substances; Z98.890 Other specified postprocedural states; Z82.49 Family history of ischemic heart disease and other diseases of the circulatory system

== ENCOUNTER 2017-07-22 22:18 | Emergency (ER) | payer OTHER ==
[~2017-07-22] VITALS: Ht 170.2 cm; Wt 63.5 kg
[~2017-07-22 22:18] MED LIST changes: -CEPH500C2 PO; +CIPR-255 PO; +LDDP5 TOP; -LIDO1PAD2 TD; +ONDA8TAB6 PO; +OXYC-57 PO; -OXYC1TAB3 PO
[2017-07-22 22:20] VITALS: TEMP 37; Ht 170.2 cm; Wt 63.5 kg
[2017-07-22] MEDS ORDERED: OXYCODONE HCL IR 5 MG TAB (IMMEDIATE RELEASE) PO STA (22:40)
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
[2017-07-22 23:15] VITALS: BP 141/71; PULSE 89; O2SAT 96
== END 2017-07-22 23:15 | disposition home or self-care (01) ==
LOC: C.EDB 22:19
DX: S61.402D Unspecified open wound of left hand, subsequent encounter (principal); W34.00XD Accidental discharge from unspecified firearms or gun, subsequent encounter; F17.200 Nicotine dependence, unspecified, uncomplicated; Z83.3 Family history of diabetes mellitus; Z82.49 Family history of ischemic heart disease and other diseases of the circulatory system

== ENCOUNTER 2017-07-29 20:47 | Emergency (ER) | payer OTHER ==
[~2017-07-29] VITALS: Ht 170.2 cm; Wt 62.4 kg
[~2017-07-29 20:47] MED LIST changes: +ONDA-170 PO; -ONDA8TAB6 PO
[2017-07-29 20:51] VITALS: Ht 170.2 cm; Wt 62.4 kg
[2017-07-29] MEDS ORDERED: ONDANSETRON HOME PACK 4MG OD TAB PO ONE (22:00)
[2017-07-29 22:02] VITALS: BP 143/78; PULSE 94; TEMP 37.1; O2SAT 97
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
== END 2017-07-29 22:03 | disposition home or self-care (01) ==
LOC: C.EDB 20:48 → C.EDD 22:03
DX: M79.642 Pain in left hand (principal); F90.9 Attention-deficit hyperactivity disorder, unspecified type; F31.9 Bipolar disorder, unspecified; K21.9 Gastro-esophageal reflux disease without esophagitis; Z83.3 Family history of diabetes mellitus; Z82.49 Family history of ischemic heart disease and other diseases of the circulatory system; F17.200 Nicotine dependence, unspecified, uncomplicated

== ENCOUNTER 2018-10-05 19:18 | Inpatient (IN) ==
--- OUTSIDE RECORDS SUMMARY | 2018-10-05 19:21 | External Medical Summary | Continuity of Care Document ---
:1995 Author Name Toshia MDemetris Address Unavailable Unavailable , Care Team Providers Name Role Phone Unavailable Unavailable Unavailable Alexander LUKE Unavailable Unavailable Unavailable Unavailable Unavailable Problems Flank Pain Left Contusion With Intact Skin Surface Of The Right Scapular Reg ion (923.01) Attention-deficit/hyperactivity disorder (314.01) (F90.9) Ankle injury (959.7) (S99.919A) Internal derangement of right knee (717.9) (M23.91) Strain of thoracic region (847.1) (S29.019A) Hernia (553.9) (K46.9) Disorder of scrotum (608.9) (N50.9) Contusion of right knee (924.11) (S80.01XA) Knee joint effusion (719.06) (M25.469) Bipolar I disorder, single manic episode (296.00) (F30.9) Knee injury (959.7) (S89.90XA) Joint pain, knee (719.46) (M25.569) Abdominal pain, lower (789.09) (R10.30) Dizziness (780.4) (R42) Back Pain A Fall (E888.9) Nerve entrapment (355.9) (G58.9) Sleep apnea (780.57) (G47.30) Abdominal pain (789.00) (R10.9) Contusion (924.9) (T14.8XXA) Migraine headache (346.90) (G43.909) Ankle joint pain (719.47) (M25.579) Nausea (787.02) (R11.0) Allergies and Adverse Reactions Penicillins (Allergy) Phenergan (Allergy) Milk (Allergy) Medications Tylenol 325 MG Oral Capsule; as needed , M.DDonnie S tart: 12-Feb-2016 Refills: 0 Ibuprofen 200 MG Oral Tablet; TAKE 1 TABLET 3 TIMES DAILY NEEDED. , Salty.D. Start: 12-Feb-2016 Refills: 0 Claritin 10 MG Oral Tablet; TAKE 1 TABLET DAILY NEEDEDMisael Fields Start: 12-Feb-2016 Refills: 0 Procedures History of Inguinal Hernia Repair Status : Completed Immunizations Hepatitis B On: 1993 Hepatitis B On: 12-May-1994 DTaP On: 12-May-1994 OPV On: 12-May-1994 HIB On: 12-May-1994 DTaP On: 07-Jul-1994 OPV On: 07-Jul-1994 HIB On: 07-Jul-1994 Hepatitis B On: Aug-1994 DTaP On: Aug-1994 OPV On: Aug-1994 HIB On: Aug-1994 HIB On: 27-Nov-1994 MMR On: 27-Nov-1994 DTaP On: 01-Jun-1995 Varicella On: 29-Aug-1997 DTaP On: 06-Mar-1999 IPV On: 06-Mar-1999 MMR On: 06-Mar-1999 Varicella On: 09-Mar-2007 Influenza On: 09-Mar-2007 Tdap (Adacel) On: 09-Mar-2007 Meningo (Menactra) On: 09-Mar-2007 Influenza On: 20-Mar-2011 15:58 Lot #: [id number], [employer] Hepatitis A On: 20-Aug-2011 14:43 Lot #: [id number], [employer] Meningo (Menactra) On: 20-Aug-2011 14:44 Lot #: [id number], [employer] HPV (Gardasil) On: 20-Aug-2011 14:44 Lot #: [id number], [employer] Family History Mother Family history of Gastroparesis Status: Active Family history of Neoplasm Of The Brain Status: Active Family history of Diabetes Mellitus (V18.0) Status: Active Family history of Migraine Headache Status: Active Brother Family history of Asthma (V17.5) Status: Active Unknown Family Member Family history of hypertension (V17.49) Status: Active Comments: Family History (Z82.49) Family history of cerebrovascular accident Status: Active Comments: Family History (CVA) (V17.1) (Z82.3) Family history of cardiac disorder (V17.49) Status: Active Comments: Family History (Z82.49) Social History - Smoking Status Smoker. current status unknown Plan of Treatment Planned Observations Planned Goals not documented Results No Known Results Results not documented
[2018-10-05] MEDS ORDERED: HYDROmorphone INJ 0.5 MG/0.5 ML SYR IV STA (19:33)
[2018-10-05] MEDS ORDERED: ONDANSETRON INJ 2 MG/ML 2 ML VIAL IV STA ×2 (19:33→21:29)
[2018-10-05] MEDS ORDERED: SODIUM CHLORIDE 0.9% 1000ML 1,000 ML IV SCH (19:45)
[2018-10-05 20:15] LABS: Basophils # (auto) 0.05 K/uL (0-0.2); Basophils % (auto) 0.7 %; Eosinophils # (auto) 0.02 K/uL (0-0.5); Eosinophils % (auto) 0.3 %; Hematocrit (blood only) 35.4 % (42-52); Hemoglobin 11.5 g/dL (14.0-18.0); Immature Granulocytes # (auto) 0.01 K/uL (0.00-0.02); Immature Granulocytes % (auto) 0.1 %; Lymphocytes % (auto) 20.4 %; Mean Corpuscular Hgb Conc 32.5 g/dL (32-36); Mean Corpuscular Volume 77.6 fL (80-100); Mean Platelet Volume 8.8 fL (7.4-10.4); Monocytes # (auto) 0.46 K/uL (0.11-0.59); Monocytes % (auto) 6.3 %; Neutrophils % (auto) 72.2 %; Platelet Count 455 K/uL (130-400); RDW Coefficient of Variation 13.6 % (11.5-14.5); RDW Standard Deviation 38.5 fL (36.4-46.3); Red Blood Count 4.56 M/uL (4.7-6.1); White Blood Count 7.34 K/uL (4.8-10.8)
[2018-10-05] MEDS ORDERED: HYDROmorphone INJ 1 MG/ML SYRINGE IV STA (20:26)
[2018-10-05 20:42] LABS: Albumin Level 4.5 gm/dl (3.4-5.0); BUN Creatinine Ratio 14.8 (10-20); Calcium 10.9 mg/dl (8.5-10.1); Creatinine Clr Calc Pharmacy 89.7 ml/min; Est GFR (African American) 113.3; Est GFR (Non-African American) 97.8; Potassium 3.6 mmol/L (3.5-5.1)
[2018-10-05 20:45] LABS: Bilirubin,Total 0.4 mg/dl (0.2-1); Globulin 4.6 gm/dl (2.5-4.0); Total Protein 9.1 gm/dl (6.4-8.2)
[2018-10-05] MEDS ORDERED: SODIUM CHLORIDE 0.9% 1000ML 1,000 ML IV ONE ×2 (21:23→22:08)
[2018-10-05] MEDS ORDERED: IOVERSOL 100ml IV PRN (21:59)
--- NOTE | 2018-10-05 22:06 | Emergency Department Note ---
Entered by Júnior Alcaraz acting as a scribe for Pepito Martin MD History of Present Illness General Chief complaint: GI Assessment Stated complaint: EXTREME STOMACH PAIN, DIVERTICULITIS Source: patient History of Present Illness Onset (ago): month(s) (past several) Location: abdomen Pain Consistency: + constant Quality: + other (constant "extreme" abdominal pain) Exacerbated By: + eating Associated symptoms: + nausea/vomiting and + other (feels feverish) The patient is a 22 year old male who presents to the Emergency Room with complaints of constant extreme abdominal pain for the past several months. He states that the pain is stabbing and located in the left side of the abdomen as well as the epigastrium. He was evaluated for the same pain in July, and he states I have this pain all day every day. It hasnt gotten better. I was supposed to see a GI specialist but I dont have insurance and dont know when I will get it. He reports that his pain is worsened with eating, although he states everything makes it worse. He has also been unable to keep down food and drink because it causes him to vomit. He feels feverish but has had no recorded fever. He states that he has had diarrhea all day. He is urinating less but is also drinking less. He notes that he was able to make an appointment with his [facility] PCP two weeks ago for blood in the stool and leg swelling, but those symptoms resolved, and he was told again at that time to see GI for his abdomen. He states that his mother has a history of gastroparesis. Home Medications Home Medications Medication Instructions Recorded Confirmed Type ibuprofen 600 mg PO Q8H PRN 07/17/18 10/05/18 History acetaminophen [Tylenol Extra 1,000 mg PO Q6H PRN 10/05/18 10/05/18 History Strength] esomeprazole magnesium [Nexium] 20 mg PO DAILY PRN 10/05/18 10/05/18 History Allergies Allergy/AdvReac Type Severity Reaction Status Date / Time Penicillins Allergy Severe ANAPHYLAXIS Verified 10/05/18 20:30 promethazine Allergy Severe SHORTNESS Verified 10/05/18 20:30 OF BREATH tramadol Allergy Severe SHORTNESS Verified 10/05/18 20:30 OF BREATH diphenhydramine Allergy Unknown Itchiness Verified 10/05/18 20:30 and trouble breathing. lactose AdvReac Intermediate nausea Verified 10/05/18 20:30 ANTIINFLAMMATORIES AdvReac Mild migraines Uncoded 07/17/18 20:03 Past Med/Surg History Medical History GERD (gastroesophageal reflux disease) (Chronic) Surgical History Hx of hernia repair Family History Other Diabetes Gallbladder disease Heart disease Hypertension Lung disease Seizure Social History Preferred Language: Japanese marital status: Single current occupational status: employed Feels Safe at Home: Yes Smoking Status: Current every day smoker Review of Systems See HPI for pertinent positives & negatives. and A total of 10 systems reviewed and were otherwise negative Physical Exam Vital Signs Vital Signs - 24 hr 10/05/18 19:21 10/05/18 19:50 10/05/18 20:04 Temperature 36.9 C Temperature Source Oral Sepsis Recent Fever Within 48 Hours No Sepsis Action Taken by Nursing No Action Required Pulse Rate 100 H Pulse Rate [Finger] 89 Respiratory Rate 18 18 Respiratory Effort / Characteristics Non-Labored Spontaneous Respiratory Depth Normal Blood Pressure 141/93 H Blood Pressure [Right Arm] 140/87 Blood Pressure Mean 109 Blood Pressure Mean [Right Arm] 104 Pulse Oximetry 98 100 100 Oxygen Delivery Method Room Air Room Air Room Air 10/05/18 21:28 Temperature Temperature Source Sepsis Recent Fever Within 48 Hours Sepsis Action Taken by Nursing Pulse Rate Pulse Rate [Finger] 85 Respiratory Rate 18 Respiratory Effort / Characteristics Respiratory Depth Blood Pressure Blood Pressure [Right Arm] 140/73 Blood Pressure Mean Blood Pressure Mean [Right Arm] 95 Pulse Oximetry 99 Oxygen Delivery Method Room Air Constitutional: Vital signs reviewed. Eyes: Pupils are equal round reactive to light. Conjunctiva are noninjected. ENT: Pharynx is clear without erythema or exudate. Mucous membranes are dry. Neck supple without meningeal signs. Respiratory: Clear to auscultation bilaterally. Breath sounds are equal bilaterally. Cardiovascular: Regular rate and rhythm. No rubs or gallops. GI: Soft, nondistended. Epigastric tenderness to palpation. Bowel sounds are present. Musculoskeletal: No CVA tenderness. No peripheral edema. No lower extremity tenderness. Integumentary: No cyanosis. Neurological: The patient is awake and alert. No focal deficits. Psychiatric: Normal affect. Course 1928: The patient was evaluated in room B11B. A complete history and physical examination were performed. 2121: I updated the patient on test results and asked for a urine sample. Consultations Consultation #1: Dr. Alberts Time: 22:39 Administered Medications Sodium Chloride (Nss 1000ml) 1,000 mls @ 999 mls/hr IV .Q1H1M ONE Stop: 10/05/18 23:08 Last Admin: 10/05/18 22:29 Dose: 999 mls/hr Documented by: [id number] Ioversol (Optiray 320 100ml) 89 ml IV ONCE PRN PRN Reason: Interaction Checking Stop: 10/09/18 21:58 Last Admin: 10/05/18 22:00 Dose: 89 ml Documented by: [id number] Discontinued Medications Hydromorphone HCl (Dilaudid) 0.5 mg IV NOW STA Stop: 10/05/18 19:34 Last Admin: 10/05/18 20:02 Dose: 0.5 mg Documented by: [id number] Hydromorphone HCl (Dilaudid) 1 mg IV NOW STA Stop: 10/05/18 20:27 Last Admin: 10/05/18 20:42 Dose: 1 mg Documented by: [id number] Sodium Chloride (Nss 1000ml) 1,000 mls @ 999 mls/hr IV .Q1H1M JULI Stop: 10/05/18 20:45 Last Infusion: 10/05/18 21:25 Dose: 0 mls/hr Documented by: [id number] Admin: 10/05/18 20:02 Dose: 999 mls/hr Documented by: [id number] Sodium Chloride (Nss 1000ml) 1,000 mls @ 999 mls/hr IV .Q1H1M ONE Stop: 10/05/18 22:23 Last Infusion: 10/05/18 22:30 Dose: 0 mls/hr Documented by: [id number] Admin: 10/05/18 21:27 Dose: 999 mls/hr Documented by: [id number] Ondansetron HCl (Zofran) 4 mg IV NOW STA Stop: 10/05/18 19:34 Last Admin: 10/05/18 20:02 Dose: 4 mg Documented by: [id number] Ondansetron HCl (Zofran) 4 mg IV NOW STA Stop: 10/05/18 21:30 Last Admin: 10/05/18 21:31 Dose: 4 mg Documented by: [id number] Medical Decision Making Differential Diagnosis Differential diagnosis: gastritis, foodborne illness, inflammatory bowel disease, IBS, pancreatitis Medical Records Attestation: I reviewed the patient's medical records. I did perform a limited focused review of portions of the patient's old chart on the electronic medical record. The patient was seen here on July 17 for abdominal pain. He had a CT scan of the abdomen that was concerning for mesenteric adenitis. It also showed mild wall thickening of the sigmoid colon. He was discharged home. Home Medications Current Medication List: was personally reviewed by me Laboratory Data Attestation: I reviewed the patient's lab results. Result diagrams: 10/05/18 20:01 10/05/18 20:01 Lab Results 10/05/18 10/05/18 Range/Units 20:01 20:01 WBC 7.34 (4.8-10.8) K/uL RBC 4.56 L (4.7-6.1) M/uL Hgb 11.5 L (14.0-18.0) g/dL Hct 35.4 L (42-52) % MCV 77.6 L (80-100) fL MCH 25.2 (25-34) pg MCHC 32.5 (32-36) g/dL RDW Std Deviation 38.5 (36.4-46.3) fL RDW Coeff of Marjorie 13.6 (11.5-14.5) % Plt Count 455 H (130-400) K/uL MPV 8.8 (7.4-10.4) fL Immature Gran % (Auto) 0.1 % Neut % (Auto) 72.2 % Lymph % (Auto) 20.4 % [place] % (Auto) 6.3 % Eos % (Auto) 0.3 % Baso % (Auto) 0.7 % Immature Gran # (Auto) 0.01 (0.00-0.02) K/uL Neut # (Auto) 5.30 (1.4-6.5) K/uL Lymph # (Auto) 1.50 (1.2-3.4) K/uL [place] # (Auto) 0.46 (0.11-0.59) K/uL Eos # (Auto) 0.02 (0-0.5) K/uL Baso # (Auto) 0.05 (0-0.2) K/uL Sodium 137 (136-145) mmol/L Potassium 3.6 (3.5-5.1) mmol/L Chloride 107 (98-107) mmol/L Carbon Dioxide 24 (21-32) mmol/L Anion Gap 6.0 (3-11) BUN 16 (7-18) mg/dl Creatinine 1.06 (0.6-1.4) mg/dl Est Cr Clr Drug Dosing 89.7 ml/min Est GFR ( Amer) 113.3 Est GFR (Non-Af Amer) 97.8 BUN/Creatinine Ratio 14.8 (10-20) Glucose 94 (70-99) mg/dl Calcium 10.9 H (8.5-10.1) mg/dl Total Bilirubin 0.4 (0.2-1) mg/dl AST 6 L (15-37) U/L ALT 15 (12-78) U/L Alkaline Phosphatase 59 (45-117) U/L Total Protein 9.1 H (6.4-8.2) gm/dl Albumin 4.5 (3.4-5.0) gm/dl Globulin 4.6 H (2.5-4.0) gm/dl Albumin/Globulin Ratio 1.0 (0.9-2) Lipase 208 (73-393) U/L Imaging Data Radiologist's Impression: Radiology results as stated below per my review and the radiologist's interpretation: Blood Pressure Blood Pressure Findings: Elevated blood pressure Blood Pressure Disposition: elevated BP felt to be situational MDM Narrative I did evaluate the patient as noted above. The patient is presenting with abdominal pain for the past several months. He has significantly tender in the upper abdomen. He has no lower abdominal tenderness. He is also had vomiting and diarrhea. IV access was established. The patient was placed on a jaida nuous vehicle monitor technician. I did treat him with IV Dilaudid and Zofran IV. He was also given normal saline IV. I did order a urine analysis. He has not been able to give us a sample. I did order and review the patient's blood work as noted in the electronic medical record. He is mildly anemic. His white count is not elevated. LFTs and lipase are unremarkable. Calcium is slightly elevated. I d id order a CT of the abdomen and pelvis. I did review the images myself as well as the radiology report as described above. He has significant gastric antral and pyloric thickening. He was given additional Dilaudid and Zofran for pain. He was also given a GI cocktail and Pepcid IV. I did discuss the test results with the patient. I discussed the case with the hospitalist and casework specialist. Impression & Plan Intractable upper abdominal pain, Gastritis, Acute dehydration, Nausea vomiting and diarrhea Discharge Plan Visit Data Chief Complaint: GI Assessment Stated Complaint: EXTREME STOMACH PAIN, DIVERTICULITIS ED Provider: Pepito Martin Discharge Problem: Intractable upper abdominal pain, Gastritis, Acute dehydration, Nausea vomiting and diarrhea Patient Disposition: Being Evaluated by Hospitalist Forms Stand Alone Forms: My [facility] Prescriptions Prescriptions: No Action acetaminophen [Tylenol Extra Strength] 500 mg Tablet 1,000 mg PO Q6H PRN (Reason: Pain) RF: 0 esomeprazole magnesium [Nexium] 20 mg Capsule,Delayed Release(Dr/Ec) 20 mg PO DAILY PRN (Reason: Heartburn/Acid Reflux) RF: 0 ibuprofen 200 mg Tablet 600 mg PO Q8H PRN (Reason: Pain) RF: 0 Referrals Referrals: Martin Waters MD [Primary Care Provider] - Discharge Problem: Gastritis Qualifiers: Gastritis type: unspecified gastritis Chronicity: acute Gastritis bleeding: without bleeding Qualified Code(s): K29.00 - Acute gastritis without bleeding The scribe's documentation has been prepared under my direction and personally reviewed by me in its entirety. I confirm that the note above accurately reflects all work, treatment, procedures, and medical decision making performed by me.
--- NOTE | 2018-10-05 22:29 | CT Scan Report ---
CT abd pelvis oral and IV con CLINICAL HISTORY: upper abd pain eval for colitis COMPARISON STUDY: 07/17/2018 TECHNIQUE: The patient was scanned following administration of dilute oral contrast, and in a dynamic helical fashion during intravenous administration of 89 cc of Optiray 320. A dose lowering techniqu e was utilized adhering to the principles of ALARA. CT DOSE: 267.14 mGy.cm FINDINGS: Lower chest: The heart is normal in size and configuration, without pericardial effusion. The lung ba ses and pleural spaces are clear. Liver: The contrast-enhanced liver is normal in size, contour, and attenuation. There is no intrahepa tic biliary ductal dilatation. The hepatic veins and portal veins are patent. Gallbladder: Unremarkable. Spleen: Normal in size and attenuation. Pancreas: Unremarkable. Adrenal glands: Unremarkable. Kidneys: There is symmetric renal cortical enhancement. The kidneys are normal in size without hydron ephrosis. Bowel: There are no transition zones indicate bowel obstruction. There is no evidence of acute divert iculitis. There is no evidence of acute appendicitis. There is gastric antral/pyloric wall thickening . Peritoneum: There is trace free pelvic fluid. There is no free air. Vasculature: The abdominal aorta is normal in course and caliber. Adenopathy: None. Pelvic viscera: The bladder, and pelvic viscera are unremarkable. Skeletal structures: No destructive osseous lesions are seen. IMPRESSION: 1. No evidence of bowel obstruction. No evidence of free air 2. No evidence of acute diverticulitis. No evidence of acute appendicitis. 3. Small amount of free pelvic fluid 4. Nonspecific gastric antral/pyloric wall thickening Electronically signed by: Ramiro Lei M.D. 10/05/2018 10:27 PM
[2018-10-05] MEDS ORDERED: GI COCKTAIL ED USE PO ONE (22:34)
[2018-10-05] MEDS ORDERED: FAMOTIDINE 20MG/5ML IV PUSH IV STA (22:34)
[2018-10-05 23:09] LABS: Magnesium 1.8 mg/dl (1.8-2.4); Phosphorus 3.7 mg/dl (2.5-4.9)
[2018-10-05] MEDS ORDERED: PANTOprazole 40 MG TAB PO STA (23:19)
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
[2018-10-05] MEDS ORDERED: ACETAMINOPHEN 325 MG TAB PO PRN (23:57)
[2018-10-05] MEDS ORDERED: LORazepam 0.25 MG/0.5 ML VIAL IV PRN (23:57)
[2018-10-06] MEDS: NSS + 20MEQ KCL 20 MEQ/1,000 ML BAG IV SCH ×2 (01:52→17:11)
[2018-10-06] MEDS: MoRPHine SULFATE 2 MG/ML CARP IV PRN ×4 (01:53→20:48)
[2018-10-06] MEDS: METOCLOPRAMIDE HCL INJ 5 MG/ML 2 ML VIAL IV PRN ×2 (04:26→18:36)
[2018-10-06] MEDS: OXYCODONE HCL IR 5 MG TAB (IMMEDIATE RELEASE) PO PRN ×3 (04:27→22:19)
[2018-10-06 06:09] LABS: Basophils # (auto) 0.07 K/uL (0-0.2); Basophils % (auto) 0.8 %; Eosinophils # (auto) 0.15 K/uL (0-0.5); Eosinophils % (auto) 1.8 %; Hematocrit (blood only) 27.2 % (42-52); Immature Granulocytes # (auto) 0.01 K/uL (0.00-0.02); Immature Granulocytes % (auto) 0.1 %; Lymphocytes # (auto) 3.12 K/uL (1.2-3.4); Lymphocytes % (auto) 36.9 %; Mean Corpuscular Hgb Conc 33.1 g/dL (32-36); Mean Corpuscular Volume 76.8 fL (80-100); Mean Platelet Volume 8.6 fL (7.4-10.4); Monocytes # (auto) 0.78 K/uL (0.11-0.59); Monocytes % (auto) 9.2 %; Neutrophils # (auto) 4.32 K/uL (1.4-6.5); Neutrophils % (auto) 51.2 %; Platelet Count 363 K/uL (130-400); RDW Coefficient of Variation 13.7 % (11.5-14.5); Red Blood Count 3.54 M/uL (4.7-6.1); Reticulocyte % 0.9 % (0.5-2.0); Reticulocytes # 0.03 10^6/uL (0.02-0.10); White Blood Count 8.45 K/uL (4.8-10.8)
[2018-10-06 07:05] LABS: BUN Creatinine Ratio 15.8 (10-20); Blood Urea Nitrogen 12 mg/dl (7-18); Calcium 8.3 mg/dl (8.5-10.1); Carbon Dioxide 21 mmol/L (21-32); Chloride 112 mmol/L (98-107); Creatinine Clr Calc Pharmacy 130.2 ml/min; Est GFR (African American) > 150.0; Est GFR (Non-African American) 129.8; Ferritin 36.7 ng/ml (8-388); Glucose 92 mg/dl (70-99); Iron 84 mcg/dl (35-175); Potassium 3.7 mmol/L (3.5-5.1); Sodium 139 mmol/L (136-145); Transferrin 245 mg/dl (200-360)
[2018-10-06 07:55] LABS: Folate (Folic Acid) 21.26 ng/ml (>5.38)
[2018-10-06] MEDS: NICOTINE 7 MG/24 HR TDSY TD SCH (08:03)
[2018-10-06] MEDS ORDERED: PANTOprazole 40 MG TAB PO SCH (09:00)
--- NOTE | 2018-10-06 09:02 | Gastrointestinal Consultation ---
Date of Consultation October 06, 2018 Assessment & Plan (1) Abdominal pain: 22 year old male with severe abdominal pain, intermittent nausea/vomiting black/bloody stools admitted for observation. CT w/ gastric antral/pyloric wall thickening, drop in HGB overnight without overt signs of GIB. DDX discussed. - NPO - EGD - Please start IV PPI BID - No NSAIDs - Antiemetics PRN - Analgesia PRN - Consider repeat toxicology screen - Outpatient colonoscopy Thank you for allowing us to participate in the care of this patient. Please call with any acute changes, questions or concerns. Please see addendum below with additional recommendation from my supervising physician. Present on Admission?: Yes Supervising Physician Co-Signing Physician Notes I performed a history and physical examination of the patient, including specifically on physical exam - soft, nontender abdomen. I have discussed the patient's management with Ruth. Please refer to the nurse practitioner's note for the documented findings and plan of care. EGD for abdominal pain History of Present Illness Reason for Consultation: abd pain Requesting Physician: Facundo Attending Physician: Farshad Loredo MD History of Present Illness 22 year old male with history of hernia repair about 2 years ago who presents through the ED for evaluation of persistent abdominal pain x 3 months worsening over the past few weeks. Was seen in ED x 3 for this, subsequently admitted. Notes his pain has been significantly worse. Epigastric. Constant. Will become worse in intensity after PO. Pain is sharp, burning. There is associated nausea, vomiting. No emesis today. No prior episodes of coffee ground emesis or hematemesis. Notes change in bowels movements. Intermittent black and bloody s tools. No black stools in the past 48 hours. Does feel fatigued. No lightheadedness, dizziness. No fever, chills, CP, SOB. About 1 month ago he had unexplained bilateral knee swelling which resolved. NSAIDs: Aleve BID, Advil BID but none in 2 weeks ETOH some EGD: none Colonoscopy: none CT: No evidence of bowel obstruction. No evidence of free air No evidence of acute diverticulitis. No evidence of acute appendicitis. Small amount of free pelvic fluid Nonspecific gastric antral/pyloric wall thickening Family history of IBD: none Allergies Allergy/AdvReac Type Severity Reaction Status Date / Time Penicillins Allergy Severe ANAPHYLAXIS Verified 10/05/18 20:30 promethazine Allergy Severe SHORTNESS Verified 10/05/18 20:30 OF BREATH tramadol Allergy Severe SHORTNESS Verified 10/05/18 20:30 OF BREATH diphenhydramine Allergy Unknown Itchiness Verified 10/05/18 20:30 and trouble breathing. lactose AdvReac Intermediate nausea Verified 10/05/18 20:30 ANTIINFLAMMATORIES AdvReac Mild migraines Uncoded 07/17/18 20:03 Home Medications Home Medications Medication Instructions Recorded Confirmed Type ibuprofen 600 mg PO Q8H PRN 07/17/18 10/05/18 History acetaminophen [Tylenol Extra 1,000 mg PO Q6H PRN 10/05/18 10/05/18 History Strength] esomeprazole magnesium [Nexium] 20 mg PO DAILY PRN 10/05/18 10/05/18 History Patient History Medical History GERD (gastroesophageal reflux disease) (Chronic) Surgical History Hx of hernia repair Family History Other Diabetes Gallbladder disease Heart disease Hypertension Lung disease Seizure Social History Preferred Language: Hebrew Communication Ability: Effective Beliefs That Will Affect Care: None marital status: Single Current Living Situation: Alone current occupational status: employed Other Information That Helps Us Care for You: No Feels Safe at Home: Yes Safety Concerns: Feels Safe At This Time Smoking Status: Current every day smoker Tobacco Type: cigarettes Do You Dip or Chew Tobacco: No Tobacco Cessation Education Requested by Patient: No Hx Alcohol Use: No Hx Substance Use: No Review of Systems Constitutional: no fever, no body aches, no weakness and no weight gain Respiratory: no cough, no dyspnea, no pain on inspiration and no stopping breathing during sleep Cardiovascular: no chest pain, no radiating jaw, neck or arm pain, no dyspnea on exertion and no palpitations Gastrointestinal: + abdominal pain, + heartburn and + nausea; no belching, no bloating, no early satiety and no vomiting Physical Exam Constitutional: well developed and well nourished Neck: trachea midline Respiratory: normal respiratory effort, lungs clear to auscultation Cardiovascular: RRR, no murmur, no edema Gastrointestinal (Abdomen): Inspection/Auscultation: abdomen normal to inspection and normal bowel sounds Percussion/Palpation: + abdomen tender and abdomen soft; no guarding and abdomen not rigid Skin: no rashes, warm and dry Results & Data Vital Signs (Past 12 Hours) Vital Signs Temp Pulse Resp BP Pulse Ox 10/06/18 07:00 36.6 C 106 H 18 108/66 96 10/06/18 00:07 36.8 C 95 H 16 136/81 95 10/05/18 22:42 81 18 124/81 100 10/05/18 21:28 85 18 140/73 99 Laboratory Results 10/06/18 10/06/18 10/06/18 Range/Units 05:23 05: 05:23 WBC 8.45 (4.8-10.8) K/uL RBC 3.54 L (4.7-6.1) M/uL Hgb 9.0 L (14.0-18.0) g/dL Hct 27.2 L (42-52) % MCV 76.8 L (80-100) fL MCH 25.4 (25-34) pg MCHC 33.1 (32-36) g/dL RDW Std Deviation 39.0 (36.4-46.3) fL RDW Coeff of Marjorie 13.7 (11.5-14.5) % Plt Count 363 (130-400) K/uL MPV 8.6 (7.4-10.4) fL Immature Gran % (Auto) 0.1 % Neut % (Auto) 51.2 % Lymph % (Auto) 36.9 % [place] % (Auto) 9.2 % Eos % (Auto) 1.8 % Baso % (Auto) 0.8 % Reticulocyte % (Auto) 0.9 (0.5-2.0) % Immature Gran # (Auto) 0.01 (0.00-0.02) K/uL Neut # (Auto) 4.32 (1.4-6.5) K/uL Lymph # (Auto) 3.12 (1.2-3.4) K/uL [place] # (Auto) 0.78 H (0.11-0.59) K/uL Eos # (Auto) 0.15 (0-0.5) K/uL Baso # (Auto) 0.07 (0-0.2) K/uL Reticulocyte # 0.03 (0.02-0.10) 10^6/uL Sodium 139 (136-145) mmol/L Potassium 3.7 (3.5-5.1) mmol/L Chloride 112 H (98-107) mmol/L Carbon Dioxide 21 (21-32) mmol/L Anion Gap 6.0 (3-11) BUN 12 (7-18) mg/dl Creatinine 0.73 D (0.6-1.4) mg/dl Est Cr Clr Drug Dosing 130.2 ml/min Est GFR ( Amer) > 150.0 Est GFR (Non-Af Amer) 129.8 BUN/Creatinine Ratio 15.8 (10-20) Glucose 92 (70-99) mg/dl Calcium 8.3 L D (8.5-10.1) mg/dl Phosphorus (2.5-4.9) mg/dl Magnesium (1.8-2.4) mg/dl Iron 84 (35-175) mcg/dl TIBC 328 (250-450) mcg/dl Transferrin 245 (200-360) mg/dl Ferritin 36.7 (8-388) ng/ml Total Bilirubin (0.2-1) mg/dl AST (15-37) U/L ALT (12-78) U/L Alkaline Phosphatase (45-117) U/L Total Protein (6.4-8.2) gm/dl Albumin (3.4-5.0) gm/dl Globulin (2.5-4.0) gm/dl Albumin/Globulin Ratio (0.9-2) Lipase (73-393) U/L Vitamin B12 333 (211-911) pg/ml Folate 21.26 (>5.38) ng/ml PTH Intact (18.4-80.1) pg/ml Blood Type Antibody Screen 10/06/18 10/05/18 10/05/18 Range/Units 05: 22:18 20:01 WBC (4.8-10.8) K/uL RBC (4.7-6.1) M/uL Hgb (14.0-18.0) g/dL Hct (42-52) % MCV (80-100) fL MCH (25-34) pg MCHC (32-36) g/dL RDW Std Deviation (36.4-46.3) fL RDW Coeff of Marjorie (11.5-14.5) % Plt Count (130-400) K/uL MPV (7.4-10.4) fL Immature Gran % (Auto) % Neut % (Auto) % Lymph % (Auto) % [place] % (Auto) % Eos % (Auto) % Baso % (Auto) % Reticulocyte % (Auto) (0.5-2.0) % Immature Gran # (Auto) (0.00-0.02) K/uL Neut # (Auto) (1.4-6.5) K/uL Lymph # (Auto) (1.2-3.4) K/uL [place] # (Auto) (0.11-0.59) K/uL Eos # (Auto) (0-0.5) K/uL Baso # (Auto) (0-0.2) K/uL Reticulocyte # (0.02-0.10) 10^6/uL Sodium 137 (136-145) mmol/L Potassium 3.6 (3.5-5.1) mmol/L Chloride 107 (98-107) mmol/L Carbon Dioxide 24 (21-32) mmol/L Anion Gap 6.0 (3-11) BUN 16 (7-18) mg/dl Creatinine 1.06 (0.6-1.4) mg/dl Est Cr Clr Drug Dosing 89.7 ml/min Est GFR ( Amer) 113.3 Est GFR (Non-Af Amer) 97.8 BUN/Creatinine Ratio 14.8 (10-20) Glucose 94 (70-99) mg/dl Calcium 10.9 H (8.5-10.1) mg/dl Phosphorus 3.7 (2.5-4.9) mg/dl Magnesium 1.8 (1.8-2.4) mg/dl Iron (35-175) mcg/dl TIBC (250-450) mcg/dl Transferrin (200-360) mg/dl Ferritin (8-388) ng/ml Total Bilirubin 0.4 (0.2-1) mg/dl AST 6 L (15-37) U/L ALT 15 (12-78) U/L Alkaline Phosphatase 59 (45-117) U/L Total Protein 9.1 H (6.4-8.2) gm/dl Albumin 4.5 (3.4-5.0) gm/dl Globulin 4.6 H (2.5-4.0) gm/dl Albumin/Globulin Ratio 1.0 (0.9-2) Lipase 208 (73-393) U/L Vitamin B12 (211-911) pg/ml Folate (>5.38) ng/ml PTH Intact 8.3 L (18.4-80.1) pg/ml Blood Type B Negative Antibody Screen NEGATIVE 10/05/18 Range/Units 20:01 WBC 7.34 (4.8-10.8) K/uL RBC 4.56 L (4.7-6.1) M/uL Hgb 11.5 L (14.0-18.0) g/dL Hct 35.4 L (42-52) % MCV 77.6 L (80-100) fL MCH 25.2 (25-34) pg MCHC 32.5 (32-36) g/dL RDW Std Deviation 38.5 (36.4-46.3) fL RDW Coeff of Marjorie 13.6 (11.5-14.5) % Plt Count 455 H (130-400) K/uL MPV 8.8 (7.4-10.4) fL Immature Gran % (Auto) 0.1 % Neut % (Auto) 72.2 % Lymph % (Auto) 20.4 % [place] % (Auto) 6.3 % Eos % (Auto) 0.3 % Baso % (Auto) 0.7 % Reticulocyte % (Auto) (0.5-2.0) % Immature Gran # (Auto) 0.01 (0.00-0.02) K/uL Neut # (Auto) 5.30 (1.4-6.5) K/uL Lymph # (Auto) 1.50 (1.2-3.4) K/uL [place] # (Auto) 0.46 (0.11-0.59) K/uL Eos # (Auto) 0.02 (0-0.5) K/uL Baso # (Auto) 0.05 (0-0.2) K/uL Reticulocyte # (0.02-0.10) 10^6/uL Sodium (136-145) mmol/L Potassium (3.5-5.1) mmol/L Chloride (98-107) mmol/L Carbon Dioxide (21-32) mmol/L Anion Gap (3-11) BUN (7-18) mg/dl Creatinine (0.6-1.4) mg/dl Est Cr Clr Drug Dosing ml/min Est GFR ( Amer) Est GFR (Non-Af Amer) BUN/Creatinine Ratio (10-20) Glucose (70-99) mg/dl Calcium (8.5-10.1) mg/dl Phosphorus (2.5-4.9) mg/dl Magnesium (1.8-2.4) mg/dl Iron (35-175) mcg/dl TIBC (250-450) mcg/dl Transferrin (200-360) mg/dl Ferritin (8-388) ng/ml Total Bilirubin (0.2-1) mg/dl AST (15-37) U/L ALT (12-78) U/L Alkaline Phosphatase (45-117) U/L Total Protein (6.4-8.2) gm/dl Albumin (3.4-5.0) gm/dl Globulin (2.5-4.0) gm/dl Albumin/Globulin Ratio (0.9-2) Lipase (73-393) U/L Vitamin B12 (211-911) pg/ml Folate (>5.38) ng/ml PTH Intact (18.4-80.1) pg/ml Blood Type Antibody Screen
--- NOTE | 2018-10-06 09:38 | Anesthesiology Consultation ---
Date of Service October 06, 2018 Assessment & Plan (1) Encounter for pre-operative examination: Chart Review Chart Review: Acceptable Risk for Surgery and Patient NOT seen in Pre Admission Testing Consults Requested none ASA ASA2 Proposed Anesthesia Anesthesia Type: MAC Risk / Benefits Reviewed With: PT / POA / Parent / Guardian, Accepts Plan and Informed Consent Obtained History Surgery Operation Date: 10/06/18 10:00 Proposed Procedures p Esophagogastroduodenoscopy Dr Maciel - Wilda Maciel MD Height/Weight Height: 5 ft 7 in Weight: 59 kg Allergies Allergy/AdvReac Type Severity Reaction Status Date / Time Penicillins Allergy Severe ANAPHYLAXIS Verified 10/05/18 20:30 promethazine Allergy Severe SHORTNESS Verified 10/05/18 20:30 OF BREATH tramadol Allergy Severe SHORTNESS Verified 10/05/18 20:30 OF BREATH diphenhydramine Allergy Unknown Itchiness Verified 10/05/18 20:30 and trouble breathing. lactose AdvReac Intermediate nausea Verified 10/05/18 20:30 ANTIINFLAMMATORIES AdvReac Mild migraines Uncoded 07/17/18 20:03 Medications Home Medications Medication Instructions Recorded Confirmed Last Taken ibuprofen 600 mg PO Q8H PRN 07/17/18 10/05/18 Unknown acetaminophen [Tylenol Extra 1,000 mg PO Q6H PRN 10/05/18 10/05/18 Unknown Strength] esomeprazole magnesium [Nexium] 20 mg PO DAILY PRN 10/05/18 10/05/18 Unknown Active Medications Generic Name Dose Route Start Last Admin Trade Name Freq PRN Reason Stop Dose Admin Potassium Chloride/Sodium Chloride 20 meq in 1,000 mls @ 75 mls/hr 10/06/18 01:00 10/06/18 01:52 Normal Saline W/20 Meq Kcl IV 11/05/18 00:59 75 mls/hr .[id number] JULI Administration Metoclopramide HCl 10 mg 10/05/18 23:57 10/06/18 04:26 Reglan IV 11/04/18 23:56 10 mg Q6H PRN Administration Nausea Morphine Sulfate 2 mg 10/05/18 23:57 10/06/18 08:02 Morphine Sulfate IV 10/19/18 23:56 2 mg Q4H PRN Administration Pain Nicotine 7 mg 10/06/18 09:00 10/06/18 08:03 Nicoderm Cq TD 11/05/18 08:59 7 mg QAM JULI Administration Oxycodone HCl 5 mg 10/05/18 23:57 10/06/18 04:27 Roxicodone Immediate Rel PO 10/19/18 23:56 5 mg Q4H PRN Administration Pain Pantoprazole Sodium 40 mg 10/06/18 09:00 10/06/18 08:02 Protonix PO 11/05/18 08:59 40 mg BID JULI Administration NPO Date Last Intake of Fluids: 10/05/18 Time Last Intake of Fluids: 07:00 Date Last Intake of Solids: 10/04/18 Time Last Intake of Solids: 22:00 Past Medical History Medical History GERD (gastroesophageal reflux disease) (Chronic) Exercise / Class Metabolic Activity II 4-5 Yardwork/Stairs/Walk up hill Negative for chest pain or shortness of breath. Past Family History Family History Other Diabetes Gallbladder disease Heart disease Hypertension Lung disease Seizure Past Surgical History Surgical History Hx of hernia repair Past Anesthesia History No Hx of Anesthesia Complications History of PONV No Hx of PONV and No Hx of Motion Sickness Social History Smoking Status: Current every day smoker tobacco type: cigarettes Do You Dip or Chew Tobacco: No Hx Alcohol Use: No Hx Substance Use: No Review of Systems Patient denies active symptoms of GERD. Physical Exam Vital Signs Last Vital Signs Temp 37.1 C 10/06/18 09:36 Pulse 64 10/06/18 09:36 Resp 16 10/06/18 09:36 BP 124/74 10/06/18 09:36 Pulse Ox 100 10/06/18 09:36 Constitutional not obese ENMT Mouth: + poor dentition and + chipped teeth; no TMJ abnormality and oral opening not small Thyromental Distance: > or= 3.5 Finger Breadths Mallampati Class: III Mouth / Teeth: 1. Chipped and broken throughout Neck normal visual inspection and + facial hair; neck extension not limited Respiratory normal respiratory effort Auscultation: lungs clear to auscultation bilaterally Cardiovascular Rate/Rhythm: regular rate and regular rhythm Heart Sounds: no murmur Neurologic moves all extremities Motor/Sensory: no sensory deficit Psychiatric Orientation: alert and oriented x 3 Testing Laboratory Results 10/06/18 05:23 10/06/18 05:23 10/06/18 05:23 Blood Type B Negative Antibody Screen NEGATIVE
[2018-10-06] MEDS ORDERED: MoRPHine SULFATE 2 MG/ML CARP IV STA ×2 (10:01→21:00)
[2018-10-06] MEDS ORDERED: fentaNYL citrate 100 MCG/2 ML VIAL ONE (10:14)
[2018-10-06] MEDS ORDERED: MIDAZOLAM HCL 1 MG/ML 2ML VIAL ONE (10:14)
[2018-10-06] MEDS ORDERED: ONDANSETRON INJ 2 MG/ML 2 ML VIAL ONE (10:15)
[2018-10-06] MEDS ORDERED: PROPOFOL IV EMULSION 10 MG/ML 20 ML VIAL IV ONE ×2 (10:15→10:40)
[2018-10-06] MEDS ORDERED: LIDOCAINE HCL 2% 2 ML VIAL/AMP(20MG/ML) INFIL ONE (10:15)
--- NOTE | 2018-10-06 10:40 | GI REPORT ---
Patient Name: Branden Sánchez Procedure Date: 10/06/2018 10:17 AM Date of : 1995 Admit Type: Inpatient Age: 22 Gender: Male Attending MD: Wilda Maciel MD Procedure: Upper GI endoscopy Providers: Wilda Maciel MD Referring MD: MINNA GARCIA Indications: Epigastric abdominal pain Medicines: Monitored Anesthesia Care Complications: No immediate complications. Estimated Blood Loss: Estimated blood loss: none. Procedure: Pre-Anesthesia Assessment: - Prior to the procedure, a History and Physical was performed, and patient medications and allergies were reviewed. The patient is competent. The risks and benefits of the procedure and the sedation options and risks were discussed with the patient. All questions were answered and informed consent was obtained. Patient identification and proposed procedure were verified by the physician and the nurse in the procedure room. Mental Status Examination: alert and oriented. Airway Examination: normal oropharyngeal airway and neck mobility. Respiratory Examination: clear to auscultation. CV Examination: normal. ASA Grade Assessment: II - A patient with mild systemic disease. After reviewing the risks and benefits, the patient was deemed in satisfactory condition to undergo the procedure. The anesthesia plan was to use monitored anesthesia care (MAC). Immediately prior to administration of medications, the patient was re-assessed for adequacy to receive sedatives. The heart rate, respiratory rate, oxygen saturations, blood pressure, adequacy of pulmonary ventilation, and response to care were monitored throughout the procedure. The physical status of the patient was re-assessed after the procedure. After obtaining informed consent, the endoscope was passed under direct vision. Throughout the procedure, the patient's blood pressure, pulse, and oxygen saturations were monitored continuously. The Endoscope was introduced through the mouth, and advanced to the second part of duodenum. The upper GI endoscopy was accomplished without difficulty. The patient tolerated the procedure well. Findings: The examined esophagus was normal. Mildly erythematous mucosa was found in the gastric antrum. Biopsies were taken with a cold forceps for Helicobacter pylori testing. Verification of patient identification for the specimen was done by the physician and nurse using the patient's name and date. One non-bleeding cratered duodenal ulcer with no stigmata of bleeding was found in the duodenal bulb. The lesion was 12 mm in largest dimension. The second portion of the duodenum was normal. Impression: - Normal esophagus. - Erythematous mucosa in the antrum. Biopsied. - One non-bleeding duodenal ulcer with no stigmata of bleeding. - Normal second portion of the duodenum. Recommendation: - Return patient to [facility] for [facility] care. - Clear liquid diet today, then advance as tolerated. - Await pathology results. - No ibuprofen, naproxen, or other non-steroidal anti-inflammatory drugs. Wilda Maciel MD 10/06/2018 10:39:46 AM This report has been signed electronically. Note Initiated On: 10/06/2018 10:17 AM Number of Addenda: 0 I attest to the content of the Intraoperative Record and orders documented therein, exceptions below {[id number]}
[2018-10-06] MEDS ORDERED: ETOMIDATE 2 MG/ML 20 ML VIAL IV ONE (10:52)
--- NOTE | 2018-10-06 11:00 | Anesthesiology Progress Note ---
Date of Service October 06, 2018 Anesthesia Post Procedure Vital Signs Vital Signs: Temp Pulse Pulse Resp BP BP Pulse Ox 10/06/18 10:45 37.0 C 90 16 110/55 L 99 10/06/18 09:36 37.1 C 64 16 124/74 100 10/06/18 07:00 36.6 C 106 H 18 108/66 96 10/06/18 00:07 36.8 C 95 H 16 136/81 95 10/05/18 22:42 81 18 124/81 100 10/05/18 21:28 85 18 140/73 99 10/05/18 20:04 89 18 140/87 100 10/05/18 19:50 100 10/05/18 19:21 36.9 C 100 H 18 141/93 H 98 Pain Intensity Abdomen: Pain Intensity: 7 Transfer of Care Handoff Completed per policy Notes Mental Status: alert / awake / arousable and participated in evaluation Nausea / Vomiting: adequately controlled Pain: adequately controlled Airway Patency, RR, SpO2: stable & adequate BP & HR: stable & adequate Hydration State: stable & adequate Anesthetic Complications: no major complications apparent and Pt Satisfied with anesthetic care
[2018-10-06] MEDS: PANTOprazole 40 MG in SYRINGE 0 ML IV SCH ×2 (11:42→20:48)
--- NOTE | 2018-10-06 18:08 | Hospitalist Progress Note ---
Date of Service October 06, 2018 Assessment & Plan (1) Intractable upper abdominal pain: (2) Nausea vomiting and diarrhea: Present on admission with severe abdominal pain associated with nausea/vomiting and diarrhea CT abd/pelvis showed no evidence of bowel obstruction. No evidence of free air. No evidence of acute diverticulitis. No evidence of acute appendicitis S/P EGD done today by Gastro showed non bleeding duodenal ulcer Case discussed with Gastro GI recommended to continue IV PPI BID x 48hrs, then transition to oral PPI 40mg BIDx 3 months Advised pt to avoid NSAID, alcohol, spicy food Continue pain control Continue clear liquid diet and advanced as tolerated tomorrow Hypercalcemia Possible related to dehydration Continue IVF for now Ca 8.3 today Monitor BMP Anemia Hgb on admission 11.5 Hgb today 9 (Possible related to dilution) Monitor CBC Tobacco abuse Counseling on tobacco abuse On Nicotine patch DVT px ambulates/SCDs CODE STATUS FULL CODE Subjective Pt was seen and examined Lying in bed with no distress Pt said that he is having pain in his abdomen He wants to go home because he called his job and could not find anyone to cover his shift He is working tomorrow afternoon He agreed to stay for [facility] and I ll discharge him tomorrow at 10AM Denies any chest pain, palpitation, dizziness and SOB Physical Exam Physical Exam: General- No acute distress Head- atraumatic Eyes- PERRL, EOMI, ENT- oropharynx clear Neck- supple, no JVD Lungs- clear to auscultation Heart- regular rhythm; no murmur Abdomen- normal bowel sounds, soft, +tender Extremities- no calf tenderness Neuro- alert, oriented x 3; PERRL, EOMI; no facial palsy; no dysarthria Skin- warm & dry Results & Data Vital Signs (Past 12 Hours) Vital Signs Temp Pulse Resp BP Pulse Ox 10/06/18 14:56 36.8 C 66 18 111/70 100 10/06/18 11:15 76 16 106/58 L 100 10/06/18 11:01 79 16 117/47 L 99 10/06/18 10:45 37.0 C 90 16 110/55 L 99 10/06/18 09:36 37.1 C 64 16 124/74 100 10/06/18 07:00 36.6 C 106 H 18 108/66 96
[2018-10-06] MEDS ORDERED: ALUMINUM/MAGNESIUM SUSP 18 ML, LIDOCAINE HCL VISCOUS 2% 6 ML, BARCODE IDENTIFIER 1 EA PO ONE (18:30)
[2018-10-06] MEDS ORDERED: ACETAMINOPHEN 1,000 MG/100 ML VIAL IV PRN (19:38)
[2018-10-06] MEDS ORDERED: MoRPHine SULFATE 2 MG/ML CARP ONE (21:09)
--- NOTE | 2018-10-06 21:32 | CT Scan Report ---
CT abd pelvis wo con CT DOSE: 275.53 mGy.cm HISTORY: Pain worsening abd pain TECHNIQUE: Multiaxial CT images of the abdomen and pelvis were performed without contrast. A dose lo wering technique was utilized adhering to the principles of ALARA. COMPARISON STUDY: 10/05/2018 FINDINGS: Mild increase in bibasilar dependent atelectasis. Liver spleen and pancreas are grossly unr emarkable. Persistent prominence of the small bowel with several fluid-filled loops of small bowel. T his suggests a nonspecific enteritis. There is small amount of fluid surrounding the cecum and right lower Colon gutter. The appendix is normal. Possible mild wall thickening of the sigmoid. Persistent reactive free fluid within the pelvic cul-de -sac. Bladder is midline. There are no contained calcifications. IMPRESSION: 1. Mild increase in small bowel reactive ileus versus enteritis. 2. Secondary findings suggesting mild cecal and to lesser extent sigmoid colitis. 3. Small amount of reactive free fluid within the pelvic cul-de-sac unchanged from the prior study. 4. No evidence for abscess or collection within limitations of an unenhanced scan The above report was generated using voice recognition software. It may contain grammatical, syntax or spelling errors. Electronically signed by: Martin Dee M.D. 10/06/2018 9:31 PM
--- NOTE | 2018-10-06 21:41 | Hospitalist Progress Note ---
Date of Service October 06, 2018 Subjective Made aware by RN of worsening abdominal pain. Abdominal pain now on the left side as per patient. Repeat CT abdomen pelvis: 1. Mild increase in small bowel reactive ileus versus enteritis. 2. Secondary findings suggesting mild cecal and to lesser extent sigmoid coliti s. 3. Small amount of reactive free fluid within the pelvic cul-de-sac unchanged from the prior study. 4. No evidence for abscess or collection within limitations of an unenhanced scan AP Possible sigmoid colitis Clear liquid diet IV Ceftriaxone, Flagyl for now Will relay developments to AM provider. Results & Data Vital Signs (Past 12 Hours) Vital Signs Temp Pulse Resp BP Pulse Ox 10/06/18 14:56 36.8 C 66 18 111/70 100 10/06/18 11:15 76 16 106/58 L 100 10/06/18 11:01 79 16 117/47 L 99 10/06/18 10:45 37.0 C 90 16 110/55 L 99
[2018-10-06] MEDS: metroNIDAZOLE 500 MG/100 ML BAG IV SCH (22:07)
[2018-10-06] MEDS ORDERED: cefTRIAXone SODIUM 1,000 MG in DEXTROSE 5% 50 ML IV SCH (23:00)
[2018-10-07] MEDS: MoRPHine SULFATE 2 MG/ML CARP IV PRN ×3 (00:39→09:28)
[2018-10-07] MEDS: OXYCODONE HCL IR 5 MG TAB (IMMEDIATE RELEASE) PO PRN ×2 (04:02→10:59)
[2018-10-07] MEDS: metroNIDAZOLE 500 MG/100 ML BAG IV SCH ×2 (05:21→14:19)
[2018-10-07 05:44] LABS: Hematocrit (blood only) 27.6 % (42-52); Mean Corpuscular Hgb Conc 32.6 g/dL (32-36); Mean Corpuscular Volume 77.5 fL (80-100); Mean Platelet Volume 8.3 fL (7.4-10.4); Platelet Count 297 K/uL (130-400); RDW Coefficient of Variation 13.5 % (11.5-14.5); RDW Standard Deviation 38.9 fL (36.4-46.3); Red Blood Count 3.56 M/uL (4.7-6.1); White Blood Count 6.04 K/uL (4.8-10.8)
[2018-10-07 06:15] LABS: BUN Creatinine Ratio 13.1 (10-20); Calcium 8.7 mg/dl (8.5-10.1); Creatinine Clr Calc Pharmacy 126.7 ml/min; Est GFR (African American) 148.8; Est GFR (Non-African American) 128.4; Potassium 3.7 mmol/L (3.5-5.1)
[2018-10-07] MEDS: NICOTINE 7 MG/24 HR TDSY TD SCH (08:27)
[2018-10-07] MEDS: PANTOprazole 40 MG in SYRINGE 0 ML IV SCH (08:27)
--- NOTE | 2018-10-07 13:43 | Hospitalist Progress Note ---
Date of Service October 07, 2018 Assessment & Plan (1) Abdominal pain: Abdominal pain worsening last night Repeat CT abd/pelvis showed mild increased in small bowel reactive ileus versus enteritis findings suggesting mild cecal and to lesser extent sigmoid colitis. Starting on IV flagyl and ceftriaxone Pain improves this morning Patient does not want to stay in the hospital because he has to go back to work Continue pain control Tolerated full liquid diet and advanced slowly as tolerated Since pt does not want to stay in the hospital will change abx to flagyl and cipro (2) Nausea vomiting and diarrhea: Present on admission with severe abdominal pain associated with nausea/vomiting and diarrhea CT abd/pelvis showed no evidence of bowel obstruction. No evidence of free air. No evidence of acute diverticulitis. No evidence of acute appendicitis S/P EGD done on 10/06 by Gastro showed non bleeding duodenal ulcer Case discussed with Gastro GI recommended to continue IV PPI BID x 48hrs, then transition to oral PPI 40mg BIDx 3 months Advised pt to avoid NSAID, alcohol, spicy food Continue pain control Diet advanced to full liquid diet Clinically improves slowly Hypercalcemia Possible related to dehydration Continue IVF for now Ca 8.37 today Monitor BMP Anemia Hgb on admission 11.5 Hgb today 9 (Possible related to dilution) Monitor CBC Tobacco abuse Counseling on tobacco abuse On Nicotine patch DVT px ambulates/SCDs CODE STATUS FULL CODE Disposition He does not want to stay for another night, will discharge home today. 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
[2018-10-07] MEDS ORDERED: CIPROFLOXACIN 500 MG TAB PO SCH (14:10)
[2018-10-07] MEDS ORDERED: metroNIDAZOLE 500 MG TAB PO SCH (14:10)
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
== END 2018-10-07 14:44 | disposition home or self-care (01) | DRG 392 ==
LOC: 2N 19:18 → ED 19:18 → 2N 23:36

== ENCOUNTER 2018-10-09 19:07 | Inpatient (IN) ==
[2018-10-09] MEDS ORDERED: ONDANSETRON INJ 2 MG/ML 2 ML VIAL IV STA (19:24)
[2018-10-09] MEDS ORDERED: FAMOTIDINE 20MG/5ML IV PUSH IV STA (19:24)
[2018-10-09] MEDS ORDERED: GI COCKTAIL ED USE PO ONE (19:25)
[2018-10-09] MEDS ORDERED: HYDROmorphone INJ 1 MG/ML SYRINGE IV STA ×2 (19:25→20:32)
[2018-10-09] MEDS ORDERED: SODIUM CHLORIDE 0.9% 1000ML 1,000 ML IV SCH (19:30)
[2018-10-09 19:50] LABS: Basophils # (auto) 0.02 K/uL (0-0.2); Basophils % (auto) 0.4 %; Eosinophils # (auto) 0.07 K/uL (0-0.5); Eosinophils % (auto) 1.4 %; Hematocrit (blood only) 29.5 % (42-52); Hemoglobin 9.5 g/dL (14.0-18.0); Lymphocytes # (auto) 1.38 K/uL (1.2-3.4); Lymphocytes % (auto) 28.3 %; Mean Corpuscular Hgb Conc 32.2 g/dL (32-36); Mean Platelet Volume 8.8 fL (7.4-10.4); Monocytes % (auto) 8.2 %; Neutrophils % (auto) 61.7 %; Platelet Count 324 K/uL (130-400); RDW Coefficient of Variation 13.7 % (11.5-14.5); RDW Standard Deviation 39.2 fL (36.4-46.3); Red Blood Count 3.78 M/uL (4.7-6.1); White Blood Count 4.87 K/uL (4.8-10.8)
[2018-10-09 20:04] LABS: INR 1.1 (0.9-1.1); Prothrombin Time 11.4 Seconds (9.0-12.0)
[2018-10-09 20:08] LABS: Albumin Level 3.7 gm/dl (3.4-5.0); BUN Creatinine Ratio 13.8 (10-20); Calcium 8.7 mg/dl (8.5-10.1); Creatinine Clr Calc Pharmacy 107.6 ml/min; Est GFR (African American) 138.1; Est GFR (Non-African American) 119.1; Potassium 3.2 mmol/L (3.5-5.1)
[2018-10-09 20:12] LABS: Bilirubin,Total 0.3 mg/dl (0.2-1); Globulin 3.6 gm/dl (2.5-4.0); Total Protein 7.3 gm/dl (6.4-8.2)
[2018-10-09] MEDS ORDERED: PANTOprazole 80 MG in DEXTROSE 5% 100 ML IV STA (20:59)
[2018-10-09] MEDS ORDERED: metroNIDAZOLE 500 MG/100 ML BAG IV STA (21:02)
[2018-10-09] MEDS ORDERED: cefTRIAXone SODIUM 1,000 MG/50 ML BAG IV STA (21:02)
--- NOTE | 2018-10-09 21:04 | Emergency Department Note ---
Entered by Aldo Dye acting as a scribe for Henrry Geller M.D. History of Present Illness General Chief complaint: Abdominal Pain Stated complaint: SEVERE STOMACH PAIN Source: patient Limitations: no limitations History of Present Illness Location: abdomen Severity: similar to prior episodes Pain Consistency: + constant Maximum Pain Intensity: 9 Quality: + constant Associated symptoms: + nausea/vomiting and + other (diarrhea, drinking less fluids) Treatments prior to arrival: other (oxycodone and nausea medicine) The patient is a 22 year old male who presents to the Emergency Room with complaints of constant abdominal pain. He states he was in the ED 4 days ago and was admitted for 2 days but left the hospital because of work. He states this pain is similar to the pain before. He notes he vomited many times today and states he vomited blood 3 times today. He notes he has been having diarrhea and states it has been maroon in color. He notes he has not been drinking as many fluids. He states he has been taking nausea medicine and oxycodone for pain. He states he did not notice him vomiting up any of the medicine. He states he had 2 hernia surgeries 6 years ago and states that is when his abdominal pain started. He denies drinking any alcohol. Home Medications Home Medications Medication Instructions Recorded Confirmed Type acetaminophen [Tylenol Extra 1,000 mg PO Q8H PRN #0 tab 10/07/18 10/09/18 Rx Strength] ciprofloxacin HCl [Cipro] 500 mg PO Q12H #7 tab 10/07/18 10/09/18 Rx metronidazole [Flagyl] 500 mg PO TID #7 tab 10/07/18 10/09/18 Rx ondansetron HCl [Zofran] 4 mg PO BID PRN #10 tab 10/07/18 10/09/18 Rx oxycodone 5 mg PO Q4H PRN #10 tab 10/07/18 10/09/18 Rx pantoprazole 40 mg PO BID #60 tab 10/07/18 10/09/18 Rx loratadine-pseudoephedrine 1 tab PO DAILY 10/09/18 10/09/18 History [Claritin-D 24 Hour] Allergies Allergy/AdvReac Type Severity Reaction Status Date / Time Penicillins Allergy Severe ANAPHYLAXIS Verified 10/09/18 20:49 promethazine Allergy Severe SHORTNESS Verified 10/09/18 20:49 OF BREATH tramadol Allergy Severe SHORTNESS Verified 10/09/18 20:49 OF BREATH diphenhydramine Allergy Unknown Itchiness Verified 10/09/18 20:49 and trouble breathing. 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 and A total of 10 systems reviewed and were otherwise negative Physical Exam Vital Signs Vital Signs - 24 hr 10/09/18 19:09 10/09/18 19:39 10/09/18 20:20 Temperature 37.2 C Temperature Source Oral Sepsis Recent Fever Within 48 Hours No Sepsis Action Taken by Nursing No Action Required Pulse Rate 72 Pulse Rate [Apical] 58 L Pulse Rhythm Regular Pulse Strength Normal Respiratory Rate 20 12 Respiratory Effort / Characteristics Non-Labored Spontaneous Non-Labored Spontaneous Respiratory Depth Normal Normal Respiratory Pattern Regular Blood Pressure 129/77 Blood Pressure [Right Arm] 132/85 Blood Pressure Mean 94 Blood Pressure Mean [Right Arm] 100 Blood Pressure Position Sitting Pulse Oximetry 100 100 Oxygen Delivery Method Room Air Room Air GENERAL: Awake, alert, well-appearing, in no distress HENT: Normocephalic, atraumatic. Oropharynx unremarkable. EYES: Normal conjunctiva. Sclera non-icteric. NECK: Supple. No nuchal rigidity. RESPIRATORY: Clear to auscultation. No wheezes. Normal respiratory effort. CARDIAC: Normal rate. Normal rhythm. Extremities warm and well perfused. GI: Soft, non-distended. No rebound or guarding. No masses. LUQ tenderness. RECTAL: Performed with nurse hydrogenation operator. Hemoccult negative. Brown stool. MUSCULOSKELETAL: Atraumatic. Chest examination reveals no tenderness. There is no CVA tenderness to palpation. LOWER EXTREMITIES: Calves are equal size bilaterally and non-tender. No edema NEURO: Normal sensorium. No sensory or motor deficits noted. No facial droop. SKIN: Warm and dry. No rash or jaundice noted. Course 1915: The patient was evaluated in room C9, and a complete history and physical examination were performed. 2104: I discussed the patient's case with Dr. Alex Alberts [facility]. He will evaluate the patient for further management Administered Medications Lactated Ringer's (Lr) 1,000 mls @ 50 mls/hr IV .Q20H JULI Stop: 11/08/18 23:10 Last Admin: 10/09/18 23:56 Dose: 50 mls/hr Documented by: [id number] Discontinued Medications Al Hydrox/Mg Hydrox/Simethicone () 1 dose PO ONE ONE Stop: 10/09/18 19:26 Last Admin: 10/09/18 19:45 Dose: 1 dose Documented by: [id number] Famotidine (Pepcid 20mg Iv Push) 20 mg IV ONE STA Stop: 10/09/18 19:25 Last Admin: 10/09/18 19:45 Dose: 20 mg Documented by: [id number] Hydromorphone HCl (Dilaudid) 1 mg IV NOW STA Stop: 10/09/18 19:26 Last Admin: 10/09/18 19:45 Dose: 1 mg Documented by: [id number] Hydromorphone HCl (Dilaudid) 1 mg IV NOW STA Stop: 10/09/18 20:33 Last Admin: 10/09/18 20:36 Dose: 1 mg Documented by: [id number] Sodium Chloride (Nss 1000ml) 1,000 mls @ 999 mls/hr IV .Q1H1M JULI Stop: 10/09/18 20:30 Last Infusion: 10/09/18 20:41 Dose: 0 mls/hr Documented by: [id number] Admin: 10/09/18 19:45 Dose: 999 mls/hr Documented by: [id number] Pantoprazole Sodium 80 mg/ (Dextrose) 120 mls @ 480 mls/hr IV ONE STA Stop: 10/09/18 21:13 Last Infusion: 10/09/18 22:05 Dose: 0 mls/hr Documented by: [id number] Admin: 10/09/18 21:50 Dose: 480 mls/hr Documented by: [id number] Ceftriaxone Sodium (Rocephin) 1,000 mg in 50 mls @ 100 mls/hr IV NOW STA Stop: 10/09/18 21:31 Last Infusion: 10/09/18 21:51 Dose: 0 mls/hr Documented by: [id number] Admin: 10/09/18 21:20 Dose: 100 mls/hr Documented by: [id number] Metronidazole (Flagyl) 500 mg in 100 mls @ 100 mls/hr IV NOW STA Stop: 10/09/18 22:01 Last Infusion: 10/09/18 22:23 Dose: 0 mls/hr Documented by: [id number] Admin: 10/09/18 21:20 Dose: 100 mls/hr Documented by: [id number] Ondansetron HCl (Zofran) 4 mg IV NOW STA Stop: 10/09/18 19:25 Last Admin: 10/09/18 19:45 Dose: 4 mg Documented by: [id number] Potassium Chloride (Klor-Con M20) 40 meq PO NOW STA Stop: 10/09/18 21:10 Last Admin: 10/09/18 21:25 Dose: Not Given Documented by: [id number] Potassium Chloride (Klor-Con M10) Confirm Administered Dose 40 meq PO .STK-MED ONE Stop: 10/09/18 21:13 Last Admin: 10/09/18 21:20 Dose: 40 meq Documented by: [id number] Medical Decision Making Differential Diagnosis Differential diagnosis: Etiologies such as appendicitis, diverticulitis, PUD, biliary pathology, UTI, pancreatitis, obstruction, mesenteric ischemia, aortic pathology, infections, inflammatory bowel disease, renal colic, as well as others were entertained. Medical Records Attestation: I reviewed the patient's medical records. Home Medications Current Medication List: was personally reviewed by me Laboratory Data Attestation: I reviewed the patient's lab results. Result diagrams: 10/09/18 19:39 10/09/18 19:39 Lab Results 10/09/18 10/09/18 10/09/18 Range/Units 19:39 19:39 19:39 WBC 4.87 (4.8-10.8) K/uL RBC 3.78 L (4.7-6.1) M/uL Hgb 9.5 L (14.0-18.0) g/dL Hct 29.5 L (42-52) % MCV 78.0 L (80-100) fL MCH 25.1 (25-34) pg MCHC 32.2 (32-36) g/dL RDW Std Deviation 39.2 (36.4-46.3) fL RDW Coeff of Marjorie 13.7 (11.5-14.5) % Plt Count 324 (130-400) K/uL MPV 8.8 (7.4-10.4) fL Immature Gran % (Auto) 0.0 % Neut % (Auto) 61.7 % Lymph % (Auto) 28.3 % [place] % (Auto) 8.2 % Eos % (Auto) 1.4 % Baso % (Auto) 0.4 % Immature Gran # (Auto) 0.00 (0.00-0.02) K/uL Neut # (Auto) 3.00 (1.4-6.5) K/uL Lymph # (Auto) 1.38 (1.2-3.4) K/uL [place] # (Auto) 0.40 (0.11-0.59) K/uL Eos # (Auto) 0.07 (0-0.5) K/uL Baso # (Auto) 0.02 (0-0.2) K/uL PT (9.0-12.0) Seconds INR (0.9-1.1) Sodium 141 (136-145) mmol/L Potassium 3.2 L (3.5-5.1) mmol/L Chloride 110 H (98-107) mmol/L Carbon Dioxide 24 (21-32) mmol/L Anion Gap 7.0 (3-11) BUN 12 (7-18) mg/dl Creatinine 0.90 (0.6-1.4) mg/dl Est Cr Clr Drug Dosing 107.6 ml/min Est GFR ( Amer) 138.1 Est GFR (Non-Af Amer) 119.1 BUN/Creatinine Ratio 13.8 (10-20) Glucose 102 H (70-99) mg/dl Calcium 8.7 (8.5-10.1) mg/dl Magnesium 1.9 (1.8-2.4) mg/dl Total Bilirubin 0.3 (0.2-1) mg/dl AST 9 L (15-37) U/L ALT 16 (12-78) U/L Alkaline Phosphatase 44 L (45-117) U/L Total Protein 7.3 (6.4-8.2) gm/dl Albumin 3.7 (3.4-5.0) gm/dl Globulin 3.6 (2.5-4.0) gm/dl Albumin/Globulin Ratio 1.0 (0.9-2) Lipase 189 (73-393) U/L Blood Type B Negative Antibody Screen NEGATIVE 10/09/18 Range/Units 19:39 WBC (4.8-10.8) K/uL RBC (4.7-6.1) M/uL Hgb (14.0-18.0) g/dL Hct (42-52) % MCV (80-100) fL MCH (25-34) pg MCHC (32-36) g/dL RDW Std Deviation (36.4-46.3) fL RDW Coeff of Marjorie (11.5-14.5) % Plt Count (130-400) K/uL MPV (7.4-10.4) fL Immature Gran % (Auto) % Neut % (Auto) % Lymph % (Auto) % [place] % (Auto) % Eos % (Auto) % Baso % (Auto) % Immature Gran # (Auto) (0.00-0.02) K/uL Neut # (Auto) (1.4-6.5) K/uL Lymph # (Auto) (1.2-3.4) K/uL [place] # (Auto) (0.11-0.59) K/uL Eos # (Auto) (0-0.5) K/uL Baso # (Auto) (0-0.2) K/uL PT 11.4 (9.0-12.0) Seconds INR 1.1 (0.9-1.1) Sodium (136-145) mmol/L Potassium (3.5-5.1) mmol/L Chloride (98-107) mmol/L Carbon Dioxide (21-32) mmol/L Anion Gap (3-11) BUN (7-18) mg/dl Creatinine (0.6-1.4) mg/dl Est Cr Clr Drug Dosing ml/min Est GFR ( Amer) Est GFR (Non-Af Amer) BUN/Creatinine Ratio (10-20) Glucose (70-99) mg/dl Calcium (8.5-10.1) mg/dl Magnesium (1.8-2.4) mg/dl Total Bilirubin (0.2-1) mg/dl AST (15-37) U/L ALT (12-78) U/L Alkaline Phosphatase (45-117) U/L Total Protein (6.4-8.2) gm/dl Albumin (3.4-5.0) gm/dl Globulin (2.5-4.0) gm/dl Albumin/Globulin Ratio (0.9-2) Lipase (73-393) U/L Blood Type Antibody Screen Imaging Data Radiologist's Impression: Radiology results as stated below per my review and the radiologist's interpretation: KUB HISTORY: Nausea. Vomiting. Diarrhea. COMPARISON: Abdomen and pelvis CT 10/06/2018. FINDINGS: The bowel gas pattern is unremarkable. There are no dilated loops of small bowel to suggest an obstruction. No renal calculi. No ureteral calculi. No pneumoperitoneum or pneumatosis. Surgical clips within the right lower quadrant are again noted. IMPRESSION: Unremarkable bowel gas pattern. No evidence for bowel obstruction. Electronically signed by: Soham Casillas M.D. 10/09/2018 9:02 PM Blood Pressure Blood Pressure Findings: Normal blood pressure Blood Pressure Disposition: further management by hospitalist KERWIN Flores Patient is a 22-year-old gentleman recently admitted last week found to have a duodenal ulcer nonbleeding presenting today complaining of worsening abdominal/left upper quadrant pain and severe nausea. States he vomited blood 3 times today (shot glass fulls per report only). Questionably some red stools but Hemoccult negative on exam here. Not peritoneal. Fairly locally in the left upper quadrant. Given Pepcid and dilaudid with antiemetics and fluid. Repeat laboratory studies were completed. Patient had 2 CT scans in the last 7 days and given similar exam will not repeat at this time. Hemoglobin appears stable compared to previous at 9.5. Not anticoagulated. Has also been on antibiotics for possible colitis component. Patient denies any alcohol or NSAID usage since discharge. Patient states he thinks he went home too early. Abdominal x-ray is unremarkable and again his exam is not consistent with peritonitis at this time. No history and recent scopes this past week for her esophageal varices. Given his severe pain with decreased oral intake discussed with hospitalist for admission. Given evening dose of Ceftriaxone and Flagyl given his difficulty tolerating oral intake. Discussed with pharmacy & given a dose of Protonix here. I am concerned regarding his duodenal ulcer with hematemesis believe continued inpatient monitoring is indicated. Impression & Plan Epigastric pain, Duodenal ulcer Discharge Plan Visit Data *Final* Discharge Date/Time: 10/09/18 22:45 Chief Complaint: Abdominal Pain Stated Complaint: SEVERE STOMACH PAIN ED Provider: Henrry Geller Discharge Problem: Epigastric pain, Duodenal ulcer Patient Disposition: Admitted As Inpatient Discharge Instructions Interventions: ED Discharge Assessment Last Done: 10/09/18 22:45 The brunaibe's documentation has been prepared under my direction and personally reviewed by me in its entirety. I confirm that the note above accurately reflects all work, treatment, procedures, and medical decision making performed by me.
[2018-10-09] MEDS ORDERED: POTASSIUM CHLORIDE 20 MEQ TABCR PO STA (21:09)
[2018-10-09] MEDS ORDERED: POTASSIUM CHLORIDE 10 MEQ TABCR PO ONE (21:12)
[2018-10-09 21:18] LABS: Magnesium 1.9 mg/dl (1.8-2.4)
--- NOTE | 2018-10-09 21:58 | History & Physical Report ---
Date of Service October 09, 2018 Assessment & Plan (1) GI bleed: (1) Abdominal pain, GI bleed Multifactorial : Recurrent UGIB, hx duodenal ulcer on recent EGD, ongoing PPI Rx; hematemesis possibly from MWT Ongoing LGIB, hx colitis on recent CT, ongoing outpatient Cipro Flagyl Rx, rule out C. difficile Chronic anemia, hemoglobin at baseline Hypokalemia secondary to emesis Ongoing tobacco abuse GMF IV PPI BID for UGI B IV Ceftriaxone, Flagyl for colitis rx Stool C. difficile, oral Vancomycin if stool C. difficile positive GI consult RE GI bleed Replace potassium Nicotine patch DVT prophylaxis. SCDs RE GI bleed Full code History of Present Illness Chief Complaint: Abdominal pain, hematemesis Primary Care Provider: Martin Waters MD History obtained from patient and records. Medical history significant for duodenal ulcer, hx colitis, chronic anemia (baseline hemoglobin of 11), ongoing tobacco abuse. Recent confinement from October 05-2018 for 2019 for abdominal pain, diarrhea symptoms. EGD showed nonbleeding duodenal ulcer. Twice daily PPI recommended for next 3 months. During confinement, patient developed left-sided abdominal pain. CAT scan showed mild cecal/sigmoid colitis. IV Ceftriaxone/Flagyl given. Patient requested early discharge despite persistent abdominal pain secondary to job concerns. Patient discharged on Cipro, Flagyl, PPI Rx. At home/work, patient noted worsening achy lower abdominal pain and nonbloody diarrhea symptoms despite compliance with medications. Today patient had 3 episodes of hematemesis and maroon-colored stool along with dizziness symptoms. No fever, no chills. No chest pain, no S OB. 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 NSAIDS (Non-Steroidal AdvReac Severe Gastrointestinal Unverified 10/09/18 20:49 Anti-Inflamma Upset lactose AdvReac Intermediate nausea Verified 10/09/18 20:49 ANTIINFLAMMATORIES AdvReac Mild migraines Uncoded 10/09/18 20:49 Home Medications Home Medications Medication Instructions Recorded Confirmed Type acetaminophen [Tylenol Extra 1,000 mg PO Q8H PRN #0 tab 10/07/18 10/09/18 Rx Strength] ciprofloxacin HCl [Cipro] 500 mg PO Q12H #7 tab 10/07/18 10/09/18 Rx metronidazole [Flagyl] 500 mg PO TID #7 tab 10/07/18 10/09/18 Rx ondansetron HCl [Zofran] 4 mg PO BID PRN #10 tab 10/07/18 10/09/18 Rx oxycodone 5 mg PO Q4H PRN #10 tab 10/07/18 10/09/18 Rx pantoprazole 40 mg PO BID #60 tab 10/07/18 10/09/18 Rx loratadine-pseudoephedrine 1 tab PO DAILY 10/09/18 10/09/18 History [Claritin-D 24 Hour] Past Med/Surg History Medical History GERD (gastroesophageal reflux disease) (Chronic) Surgical History Hx of hernia repair Family History Other Diabetes Gallbladder disease Heart disease Hypertension Lung disease Seizure Social History Preferred Language: Amharic Communication Ability: Effective 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 Beliefs That Will Affect Care: None marital status: Single Current Living Situation: Alone current occupational status: employed Feels Safe at Home: Yes Safety Concerns: Feels Safe At This Time Smoking Status: Current every day smoker Tobacco Type: cigarettes Cigarettes Per Day: 20 Hx Alcohol Use: No Hx Substance Use: No Review of Systems Review of Systems: As per HPI, all 10 systems reviewed, all other ROS negative Physical Exam Physical Exam: GENERAL: uncomfortable, no respiratory distress SKIN: Pallor , warm HEENT: Pale palpebral conjunctivae, no ptosis, dry buccal mucosa NECK : Supple, no tenderness CHEST : Decreased breath sounds , no tenderness HEART : bradycardic, no obvious murmurs ABDOMEN: Some distention, generalized abdominal tenderness without guarding EXTREMITIES : No LE swelling/tenderness, no other conspicuous deformities noted NEUROLOGIC : Coherent, no facial asymmetry, no other gross focality Results & Data Vital Signs (Past 12 Hours) Vital Signs Temp Pulse Pulse Resp BP BP Pulse Ox 10/09/18 20:20 58 L 12 132/85 100 10/09/18 19:09 37.2 C 72 20 129/77 100 Laboratory Results Laboratory Results WBC 4.87 K/uL (4.8-10.8) 10/09/18 19:39 RBC 3.78 M/uL (4.7-6.1) L 10/09/18 19:39 Hgb 9.5 g/dL (14.0-18.0) L 10/09/18 19:39 Hct 29.5 % (42-52) L 10/09/18 19:39 MCV 78.0 fL (80-100) L 10/09/18 19:39 MCH 25.1 pg (25-34) 10/09/18 19:39 MCHC 32.2 g/dL (32-36) 10/09/18 19:39 RDW Std Deviation 39.2 fL (36.4-46.3) 10/09/18 19:39 RDW Coeff of Marjorie 13.7 % (11.5-14.5) 10/09/18 19:39 Plt Count 324 K/uL (130-400) 10/09/18 19:39 MPV 8.8 fL (7.4-10.4) 10/09/18 19:39 Immature Gran % (Auto) 0.0 % 10/09/18 19:39 Neut % (Auto) 61.7 % 10/09/18 19:39 Lymph % (Auto) 28.3 % 10/09/18 19:39 [place] % (Auto) 8.2 % 10/09/18 19:39 Eos % (Auto) 1.4 % 10/09/18 19:39 Baso % (Auto) 0.4 % 10/09/18 19:39 Immature Gran # (Auto) 0.00 K/uL (0.00-0.02) 10/09/18 19:39 Neut # (Auto) 3.00 K/uL (1.4-6.5) 10/09/18 19:39 Lymph # (Auto) 1.38 K/uL (1.2-3.4) 10/09/18 19:39 [place] # (Auto) 0.40 K/uL (0.11-0.59) 10/09/18 19:39 Eos # (Auto) 0.07 K/uL (0-0.5) 10/09/18 19:39 Baso # (Auto) 0.02 K/uL (0-0.2) 10/09/18 19:39 PT 11.4 Seconds (9.0-12.0) 10/09/18 19:39 INR 1.1 (0.9-1.1) 10/09/18 19:39 Sodium 141 mmol/L (136-145) 10/09/18 19:39 Potassium 3.2 mmol/L (3.5-5.1) L 10/09/18 19:39 Chloride 110 mmol/L (98-107) H 10/09/18 19:39 Carbon Dioxide 24 mmol/L (21-32) 10/09/18 19:39 7.0 (3-11) 10/09/18 19:39 BUN 12 mg/dl (7-18) 10/09/18 19:39 0.90 mg/dl (0.6-1.4) 10/09/18 19:39 Est Cr Clr Drug Dosing 107.6 ml/min 10/09/18 19:39 Est GFR ( Amer) 138.1 10/09/18 19:39 Est GFR (Non-Af Amer) 119.1 10/09/18 19:39 13.8 (10-20) 10/09/18 19:39 Glucose 102 mg/dl (70-99) H 10/09/18 19:39 Calcium 8.7 mg/dl (8.5-10.1) 10/09/18 19:39 Magnesium 1.9 mg/dl (1.8-2.4) 10/09/18 19:39 0.3 mg/dl (0.2-1) 10/09/18 19:39 AST 9 U/L (15-37) L 10/09/18 19:39 ALT 16 U/L (12-78) 10/09/18 19:39 44 U/L (45-117) L 10/09/18 19:39 7.3 gm/dl (6.4-8.2) 10/09/18 19:39 3.7 gm/dl (3.4-5.0) 10/09/18 19:39 3.6 gm/dl (2.5-4.0) 10/09/18 19:39 1.0 (0.9-2) 10/09/18 19:39 189 U/L (73-393) 10/09/18 19:39 Blood Type B Negative 10/09/18 19:39 Antibody Screen NEGATIVE 10/09/18 19:39 Diagnostic Findings KUB x-ray: Unremarkable bowel gas pattern. No evidence for bowel obstruction.
[2018-10-09] MEDS ORDERED: ACETAMINOPHEN 325 MG TAB PO PRN (23:11)
[2018-10-09] MEDS ORDERED: LORazepam 0.25 MG/0.5 ML VIAL IV PRN (23:11)
[2018-10-09] MEDS: LACTATED RINGER'S 1,000 ML IV SCH (23:56)
[2018-10-10 00:25] LABS: Hematocrit (blood only) 27.2 % (42-52); Hemoglobin 8.6 g/dL (14.0-18.0)
[2018-10-10] MEDS: MoRPHine SULFATE 2 MG/ML CARP IV PRN ×5 (00:30→21:18)
[2018-10-10] MEDS: NICOTINE 14 MG/24 HR PATCH TD SCH ×2 (01:55→07:53)
[2018-10-10] MEDS: OXYCODONE HCL IR 5 MG TAB (IMMEDIATE RELEASE) PO PRN ×5 (02:00→22:53)
[2018-10-10] MEDS: METOCLOPRAMIDE HCL INJ 5 MG/ML 2 ML VIAL IV PRN ×2 (05:37→16:09)
[2018-10-10 06:06] LABS: Basophils # (auto) 0.05 K/uL (0-0.2); Basophils % (auto) 0.9 %; Eosinophils # (auto) 0.21 K/uL (0-0.5); Eosinophils % (auto) 3.6 %; Hematocrit (blood only) 26.5 % (42-52); Hemoglobin 8.4 g/dL (14.0-18.0); Immature Granulocytes # (auto) 0.01 K/uL (0.00-0.02); Immature Granulocytes % (auto) 0.2 %; Lymphocytes # (auto) 2.81 K/uL (1.2-3.4); Lymphocytes % (auto) 48.7 %; Mean Corpuscular Hgb Conc 31.7 g/dL (32-36); Mean Corpuscular Volume 79.1 fL (80-100); Mean Platelet Volume 8.8 fL (7.4-10.4); Monocytes # (auto) 0.48 K/uL (0.11-0.59); Monocytes % (auto) 8.3 %; Neutrophils # (auto) 2.21 K/uL (1.4-6.5); Neutrophils % (auto) 38.3 %; Platelet Count 295 K/uL (130-400); RDW Standard Deviation 40.1 fL (36.4-46.3); Red Blood Count 3.35 M/uL (4.7-6.1); White Blood Count 5.77 K/uL (4.8-10.8)
[2018-10-10 06:36] LABS: BUN Creatinine Ratio 15.7 (10-20); Blood Urea Nitrogen 11 mg/dl (7-18); Calcium 8.2 mg/dl (8.5-10.1); Carbon Dioxide 25 mmol/L (21-32); Chloride 112 mmol/L (98-107); Creatinine Clr Calc Pharmacy 138.3 ml/min; Est GFR (African American) > 150.0; Est GFR (Non-African American) 132.1; Glucose 86 mg/dl (70-99); Potassium 3.4 mmol/L (3.5-5.1); Sodium 140 mmol/L (136-145)
[2018-10-10] MEDS: metroNIDAZOLE 500 MG/100 ML BAG IV SCH ×3 (07:44→23:53)
[2018-10-10] MEDS: PANTOprazole 40 MG in SYRINGE 0 ML IV SCH ×2 (09:01→21:14)
[2018-10-10] MEDS ORDERED: POTASSIUM CHLORIDE 10 MEQ TABCR PO STA (14:14)
--- NOTE | 2018-10-10 16:14 | Hospitalist Progress Note ---
Date of Service October 10, 2018 Assessment & Plan (1) Epigastric pain: Recently admitted for abdominal pain and requested to be discharge because he did not want to get in trouble at his work Was discharge on Cipro, flagyl, opiod and PPI Worsening abdominal pain associated with nausea/vomiting and dark stools KUB showed unremarkable bowel gas pattern. No evidence for bowel obstruction. Starting on IV flagyl and ceftriaxone Continue pain control GI on board starting on clear liquid diet (2) Nausea vomiting and diarrhea: Present on admission with severe abdominal pain associated with nausea/vomiting and diarrhea S/P EGD done on 10/06 by Gastro showed non bleeding duodenal ulcer Case discussed with Gastro recommended to continue IV PPI Will make NPO after midnight to repeat EGD as per GI due to recent hematemesis, further drop in hgb and dark stool Anemia Hgb on discharge 9 Hgb today 8.4 Monitor CBC Tobacco abuse Counseling on tobacco abuse On Nicotine patch DVT px ambulates/SCDs CODE STATUS FULL CODE Subjective Pt was seen and examined Lying in bed with no distress Pt said that he continues to have abdominal pain He said that he had an episode of diarrhea few hours ago and the stool was not dark He has not had any episode of vomiting since admitted He said that he is very hungry Denies any chest pain, palpitation and SOB Physical Exam Physical Exam: General- No acute distress Head- atraumatic Eyes- PERRL, EOMI, ENT- oropharynx clear Neck- supple, no JVD Lungs- clear to auscultation Heart- regular rhythm; no murmur Abdomen- normal bowel sounds, soft, +tender Extremities- no calf tenderness Neuro- alert, oriented x 3; PERRL, EOMI; no facial palsy; no dysarthria Skin- warm & dry Results & Data Vital Signs (Past 12 Hours) Vital Signs Temp Pulse Pulse Resp BP Pulse Ox 10/10/18 15:44 36.6 C 65 18 116/69 100 10/10/18 08:06 36.6 C 58 L 18 115/67 100
[2018-10-10] MEDS: SUCRALFATE 1 GM/10 ML UDC PO SCH ×2 (17:18→21:14)
[2018-10-10] MEDS: LACTATED RINGER'S 1,000 ML IV SCH (21:12)
[2018-10-10] MEDS: cefTRIAXone SODIUM 1,000 MG in DEXTROSE 5% 50 ML IV SCH (21:21)
--- NOTE | 2018-10-10 22:05 | Consultation Report ---
DATE OF CONSULTATION: 10/10/2018 RACE: . ATTENDING PHYSICIAN: Yasir Harp MD CONSULTING PHYSICIAN: Ethan Buenrostro DO REASON FOR CONSULTATION: GI bleed. HISTORY OF PRESENT ILLNESS: Branden Sánchez is a 22-year-old male who was last seen by Dr. Maciel on 10/06/2018 when he underwent an upper endoscopy secondary to epigastric abdominal pain. At that time, he was noted to have gastritis in the gastric antrum as well as a nonbleeding cratered duodenal ulcer which was 12 mm in largest dimension. The biopsies for H. pylori returned negative and the patient was treated with twice daily PPI therapy and subsequently discharged from the hospital on 10/07/2018. He returned to the Department of Emergency Medicine on 10/09/2018 after experiencing severe stomach pain and notable hematemesis x3 episodes. In the ER, his laboratory studies showed a hemoglobin of 9.5 and a hematocrit of 29.5, which actually had increased since his discharge on 10/07/2018. He was admitted and was started on IV Protonix 40 mg IV b.i.d. At the time that I saw the patient, he continued to have significant complaints of epigastric abdominal pain and right upper quadrant abdominal pain which he described as sharp, stabbing, 7/10 in intensity, nonradiating with no alleviating factors. He did state that eating seemed to exacerbate his symptoms. He denied any further hematemesis or melena since his arrival. He did have a KUB in the ER which showed an unremarkable bowel gas pattern. He continues to complain of nausea but no vomiting and did state that he was compliant with PPI therapy as an outpatient. He denied any further complaints. PAST MEDICAL HISTORY: Significant for GERD, duodenal ulcer. PAST SURGICAL HISTORY: Includes a history of a hernia repair. ALLERGIES: PENICILLIN, PROMETHAZINE, TRAMADOL, DIPHENHYDRAMINE, NSAIDS, LACTOSE. MEDICATIONS: At present include Protonix 40 mg IV b.i.d., ceftriaxone 1 gram IV q. 24 hours, metronidazole 500 mg IV q. 8 hours, nicotine transdermal patch 14 mg daily. P.r.n. medications include Ativan, Tylenol, morphine, oxycodone, and Reglan. SOCIAL HISTORY: He is single. He denies any alcohol or illicit drug use. He does smoke a pack of cigarettes per day. FAMILY HISTORY: Negative for GI malignancy or inflammatory bowel disease. REVIEW OF SYSTEMS: Negative x12 system review other than pertinent positives listed in the HPI. PHYSICAL EXAMINATION: VITAL SIGNS: Include a temperature of 36.6, pulse 58, respirations 18, blood pressure 115/67, pulse ox 100% on room air. GENERAL: He is awake, cooperative, in no acute distress. HEAD: Normocephalic, atraumatic. EYES: Pupils equal and round. Extraocular muscles are intact. ENT: External evaluation of the ears and nose are normal. Oropharynx is clear. NECK: Soft and supple. There is no JVD or lymphadenopathy. CHEST: Clear to auscultation bilaterally. CARDIOVASCULAR SYSTEM: Regular rate and rhythm. ABDOMEN: Soft, tender throughout. Nondistended. There are positive bowel sounds. There is no appreciable hepatosplenomegaly. EXTREMITIES: No clubbing, cyanosis, or edema. SKIN: Soft, pink. LABORATORY STUDIES: Reviewed in the HPI. RADIOGRAPHIC STUDIES: Include a CT scan of the abdomen and pelvis from 10/06/2018 on prior admission showing mild increase in small bowel reactive ileus versus enteritis, secondary findings suggesting mild cecal and lesser extent sigmoid colitis. IMPRESSION: A 22-year-old male who has a history of gastritis and duodenal ulcer who returned to the ER following discharge with worsening abdominal pain, hematemesis and acute blood loss anemia. PLAN: At the present time, I would recommend keeping him n.p.o. after midnight. I will add Carafate 1 gram p.o. q.i.d. a.c. and at bedtime to the patient's medication regimen. I will continue him on Protonix 40 mg IV b.i.d. Consideration could be given to performing a repeat upper endoscopy if his H and H drops further, though he has had no overt blood loss since his arrival. I will follow his clinical course and will defer to the [facility] GI team who will resume his care on 10/11/2018. Once again, thanks for allowing me to participate in the care of this patient. If you have any further questions, please do not hesitate in contacting me.
[2018-10-11] MEDS: METOCLOPRAMIDE HCL INJ 5 MG/ML 2 ML VIAL IV PRN (01:11)
[2018-10-11] MEDS: MoRPHine SULFATE 2 MG/ML CARP IV PRN ×5 (01:12→20:14)
[2018-10-11] MEDS: NICOTINE 14 MG/24 HR PATCH TD SCH (07:27)
[2018-10-11] MEDS: metroNIDAZOLE 500 MG/100 ML BAG IV SCH ×3 (07:28→23:20)
[2018-10-11] MEDS: SUCRALFATE 1 GM/10 ML UDC PO SCH ×4 (07:28→20:16)
[2018-10-11] MEDS: PANTOprazole 40 MG in SYRINGE 0 ML IV SCH ×2 (08:25→20:16)
--- NOTE | 2018-10-11 08:29 | Anesthesiology Consultation ---
Date of Service October 11, 2018 Assessment & Plan Chart Review Chart Review: Acceptable Risk for Surgery and Patient NOT seen in Pre Admission Testing Consults Requested none ASA ASA2 Proposed Anesthesia Anesthesia Type: MAC Risk / Benefits Reviewed With: PT / POA / Parent / Guardian, Accepts Plan and Informed Consent Obtained History Surgery Operation Date: 10/11/18 09:45 Proposed Procedures p Esophagogastroduodenoscopy Dr Sharif Olguin Height/Weight Height: 1.7 m Weight: 60.1 kg Allergies Allergy/AdvReac Type Severity Reaction Status Date / Time Penicillins Allergy Severe ANAPHYLAXIS Verified 10/09/18 20:49 promethazine Allergy Severe SHORTNESS Verified 10/09/18 20:49 OF BREATH tramadol Allergy Severe SHORTNESS Verified 10/09/18 20:49 OF BREATH diphenhydramine Allergy Unknown Itchiness Verified 10/09/18 20:49 and trouble breathing. NSAIDS (Non-Steroidal AdvReac Severe Gastrointestinal Unverified 10/09/18 20:49 Anti-Inflamma Upset lactose AdvReac Intermediate nausea Verified 10/09/18 20:49 ANTIINFLAMMATORIES AdvReac Mild migraines Uncoded 10/09/18 20:49 Medications Home Medications Medication Instructions Recorded Confirmed Last Taken acetaminophen [Tylenol Extra 1,000 mg PO Q8H PRN #0 tab 10/07/18 10/09/18 10/09/18 13:00 Strength] 1000mg ciprofloxacin HCl [Cipro] 500 mg PO Q12H #7 tab 10/07/18 10/09/18 10/09/18 metronidazole [Flagyl] 500 mg PO TID #7 tab 10/07/18 10/09/18 10/09/18 oxycodone 5 mg PO Q4H PRN #10 tab 10/07/18 10/09/18 10/09/18 08:00 pantoprazole 40 mg PO BID #60 tab 10/07/18 10/09/18 10/09/18 loratadine-pseudoephedrine 1 tab PO DAILY 10/09/18 10/09/18 10/08/18 [Claritin-D 24 Hour] Active Medications Generic Name Dose Route Start Last Admin Trade Name Freq PRN Reason Stop Dose Admin Metronidazole 500 mg in 100 mls @ 100 mls/hr 10/10/18 08:00 10/11/18 08:32 Flagyl IV 10/20/18 07:59 Infused Q8H JULI Infusion Protocol Ceftriaxone Sodium 1,000 mg/ 50 mls @ 100 mls/hr 10/10/18 21:00 10/10/18 21:51 Dextrose IV 10/19/18 20:59 Infused Q24H JULI Infusion Protocol Lactated Ringer's 1,000 mls @ 50 mls/hr 10/09/18 23:11 10/11/18 00:30 Lr IV 11/08/18 23:10 50 mls/hr .Q20H JULI Infusion Pantoprazole Sodium 40 mg/ 10 mls @ 5 mls/min 10/10/18 09:00 10/11/18 08:25 Syringe IV 11/09/18 08:59 5 mls/min BID@0900,2100 JULI Administration Metoclopramide HCl 10 mg 10/09/18 23:11 10/11/18 01:11 Reglan IV 11/08/18 23:10 10 mg Q6H PRN Administration Nausea Miscellaneous 1 ea 10/11/18 08:59 10/11/18 07:28 Remove Nicoderm Patch N/A 11/10/18 08:58 1 ea DAILY@0859 JULI Administration Morphine Sulfate 2 mg 10/09/18 23:11 10/11/18 06:15 Morphine Sulfate IV 10/23/18 23:10 2 mg Q4H PRN Administration Pain Nicotine 14 mg 10/09/18 23:11 10/11/18 07:27 Nicoderm Cq TD 11/08/18 23:10 14 mg QAM JULI Administration Oxycodone HCl 5 mg 10/09/18 23:11 10/10/18 22:53 Roxicodone Immediate Rel PO 10/23/18 23:10 5 mg Q4H PRN Administration severe pain Sucralfate 1 gm 10/10/18 17:00 10/11/18 07:28 Carafate PO 11/09/18 16:59 Not Given QID JULI NPO Date Last Intake of Fluids: 10/11/18 Time Last Intake of Fluids: 00:00 Date Last Intake of Solids: 10/10/18 Time Last Intake of Solids: 23:00 Last Intake of Solids Comment: prior to shift. Past Medical History Medical History GERD (gastroesophageal reflux disease) (Chronic) H/O: duodenal ulcer Exercise / Class Metabolic Activity II 4-5 Yardwork/Stairs/Walk up hill Past Family History Family History Other Diabetes Gallbladder disease Heart disease Hypertension Lung disease Seizure Past Surgical History Surgical History H/O esophagogastroduodenoscopy 10/06/18 MAC Hx of hernia repair Past Anesthesia History No Hx of Anesthesia Complications and No Family Hx of Anesthesia Complications History of PONV No Hx of PONV and No Hx of Motion Sickness Social History Smoking Status: Current every day smoker tobacco type: cigarettes Smoking cigarettes per day: 20 x 5 years Do You Dip or Chew Tobacco: No Hx Alcohol Use: No Hx Substance Use: No Review of Systems Respiratory: no dyspnea Cardiovascular: no dyspnea on exertion Gastrointestinal: no nausea and no vomiting (Last vomiting was 3 days ago) Physical Exam Vital Signs Last Vital Signs Temp 36.6 C 10/11/18 07:17 Pulse 58 L 10/11/18 07:17 Resp 18 10/11/18 07:17 BP 108/62 10/11/18 07:17 Pulse Ox 99 10/11/18 07:17 ENMT Mouth: + poor dentition (Multiple broken teetn); no TMJ abnormality and no TMJ clicking Thyromental Distance: > or= 3.5 Finger Breadths Mallampati Class: II Neck normal visual inspection; neck extension not limited Respiratory Auscultation: lungs clear to auscultation bilaterally Cardiovascular Rate/Rhythm: regular rate and regular rhythm Psychiatric Orientation: alert and oriented x 3 Testing Laboratory Results 10/10/18 05:29 10/10/18 05:29
[2018-10-11] MEDS ORDERED: ACETAMINOPHEN 1,000 MG/100 ML VIAL IV STA (08:38)
[2018-10-11] MEDS ORDERED: MIDAZOLAM HCL 1 MG/ML 2ML VIAL ONE (08:53)
[2018-10-11] MEDS ORDERED: LIDOCAINE HCL 2% 2 ML VIAL/AMP(20MG/ML) INFIL ONE (08:54)
[2018-10-11] MEDS ORDERED: PROPOFOL IV EMULSION 10 MG/ML 20 ML VIAL IV ONE (08:55)
[2018-10-11] MEDS ORDERED: ONDANSETRON INJ 2 MG/ML 2 ML VIAL ONE (08:55)
--- NOTE | 2018-10-11 09:09 | History & Physical Bridge Note ---
Date of Service October 11, 2018 History & Physical Bridge Note I have examined the patient, reviewed the History & Physical and in the interval since the performance of the History & Physical I have noted the following changes of clinical significance: no changes noted The patient presented with a question of recurrent hematemesis and abdominal discomfort. Given the circumstances we will plan to repeat an upper endoscopy today to reevaluate his duodenal ulcer. We have discussed the risks to include bleeding, infection, perforation and need for follow-up studies.
[2018-10-11] MEDS ORDERED: fentaNYL citrate 100 MCG/2 ML VIAL ONE (09:14)
--- NOTE | 2018-10-11 09:42 | GI REPORT ---
Patient Name: Branden Sánchez Procedure Date: 10/11/2018 9:12 AM Date of : 1995 Admit Type: Inpatient Age: 22 Gender: Male Attending MD: Karyn Olguin DO Procedure: Upper GI endoscopy Providers: Karyn Olguin DO Referring MD: MINNA Rajan Indications: Epigastric abdominal pain, Hematemesis Medicines: Monitored Anesthesia Care Complications: No immediate complications. Estimated blood loss: Minimal. Estimated Blood Loss: Estimated blood loss was minimal. Procedure: Pre-Anesthesia Assessment: - Prior to the procedure, a History and Physical was performed, and patient medications, allergies and sensitivities were reviewed. The patient's tolerance of previous anesthesia was reviewed. - The risks and benefits of the procedure and the sedation options and risks were discussed with the patient. All questions were answered and informed consent was obtained. - Patient identification and proposed procedure were verified prior to the procedure by the physician, the nurse and the cheese maker. The procedure was verified in the procedure room. - Pre-procedure physical examination revealed no contraindications to sedation. - ASA Grade Assessment: II - A patient with mild systemic disease. - After reviewing the risks and benefits, the patient was deemed in satisfactory condition to undergo the procedure. - The anesthesia plan was to use monitored anesthesia care (MAC). - Immediately prior to administration of medications, the patient was re-assessed for adequacy to receive sedatives. - The heart rate, respiratory rate, oxygen saturations, blood pressure, adequacy of pulmonary ventilation, and response to care were monitored throughout the procedure. - The physical status of the patient was re-assessed after the procedure. After obtaining informed consent, the endoscope was passed under direct vision. Throughout the procedure, the patient's blood pressure, pulse, and oxygen saturations were monitored continuously. The Endoscope was introduced through the mouth, and advanced to the third part of duodenum. The upper GI endoscopy was accomplished without difficulty. The patient tolerated the procedure well. Findings: The examined esophagus was normal. The entire examined stomach was normal. One non-obstructing non-bleeding cratered duodenal ulcer with no stigmata of bleeding was found in the duodenal bulb. The lesion was 15 mm in largest dimension. The second portion of the duodenum and third portion of the duodenum were normal. Impression: - Normal esophagus. - Normal stomach. - One non-obstructing non-bleeding duodenal ulcer with no stigmata of bleeding. NSAID induced etiology. - Normal second portion of the duodenum and third portion of the duodenum. - No specimens collected. Recommendation: - The patient will be observed post-procedure, until all discharge criteria are met. - Advance diet as tolerated today. - Use Protonix (pantoprazole) 40 mg PO BID for 6 weeks then reduce to 20 mg per =day. - Use sucralfate tablets 1 gram PO BID for 6 weeks. - Repeat upper endoscopy in 3 months for surveillance. Karyn Olguin D.O. Karyn Olguin, 10/11/2018 9:42:08 AM This report has been signed electronically. Note Initiated On: 10/11/2018 9:12 AM Number of Addenda: 0 I attest to the content of the Intraoperative Record and orders documented therein, exceptions below {[id number]}
--- NOTE | 2018-10-11 09:43 | Communication Note ---
Date of Service: October 11, 2018 Upper endoscopy with a clean-based duodenal ulcer no evidence of bleeding. Recommendations Avoid use of nonsteroidals Protonix 40 mg twice daily for 6 weeks then 20 mg daily thereafter Carafate 1 g twice daily for 6 weeks Repeat upper endoscopy in 3 months Please call with any additional questions or concerns GI to sign off
--- NOTE | 2018-10-11 10:12 | Anesthesiology Progress Note ---
Date of Service October 11, 2018 Anesthesia Post Procedure Vital Signs Vital Signs: Temp Pulse Pulse Resp BP BP Pulse Ox 10/11/18 10:00 55 L 18 108/68 100 10/11/18 09:44 57 L 18 112/72 100 10/11/18 09:29 64 16 110/66 100 10/11/18 09:00 36.2 C L 53 L 16 119/69 100 10/11/18 07:17 36.6 C 58 L 18 108/62 99 10/10/18 23:40 36.6 C 61 20 108/58 L 99 10/10/18 15:44 36.6 C 65 18 116/69 100 Pain Intensity Abdomen: Pain Intensity: 9 Transfer of Care Handoff Completed per policy Notes Mental Status: alert / awake / arousable Patient Amnestic to Procedure: Yes Nausea / Vomiting: adequately controlled Pain: adequately controlled Airway Patency, RR, SpO2: stable & adequate BP & HR: stable & adequate Hydration State: stable & adequate Anesthetic Complications: no major complications apparent
[2018-10-11 10:49] LABS: Hematocrit (blood only) 28.1 % (42-52); Hemoglobin 9.1 g/dL (14.0-18.0); Mean Corpuscular Hgb Conc 32.4 g/dL (32-36); Mean Corpuscular Volume 78.3 fL (80-100); Mean Platelet Volume 8.7 fL (7.4-10.4); Platelet Count 302 K/uL (130-400); RDW Standard Deviation 40.1 fL (36.4-46.3); Red Blood Count 3.59 M/uL (4.7-6.1); White Blood Count 4.82 K/uL (4.8-10.8)
[2018-10-11 11:16] LABS: BUN Creatinine Ratio 9.4 (10-20); Calcium 8.2 mg/dl (8.5-10.1); Creatinine Clr Calc Pharmacy 122.6 ml/min; Est GFR (African American) 145.7; Est GFR (Non-African American) 125.7; Potassium 3.7 mmol/L (3.5-5.1)
[2018-10-11] MEDS: OXYCODONE HCL IR 5 MG TAB (IMMEDIATE RELEASE) PO PRN ×3 (13:09→23:20)
[2018-10-11 14:53] VITALS: O2SAT 99
--- NOTE | 2018-10-11 17:32 | Hospitalist Progress Note ---
Date of Service October 11, 2018 Assessment & Plan (1) Epigastric pain: (2) Nausea vomiting and diarrhea: Recently admitted for abdominal pain and requested to be discharge because he did not want to get in trouble at his work Present on admission with severe abdominal pain associated with nausea/vomiting and diarrhea Was discharge on Cipro, flagyl, opiod and PPI S/P EGD done on 10/06 by Gastro showed non bleeding duodenal ulcer Worsening abdominal pain associated with nausea/vomiting and dark stools KUB showed unremarkable bowel gas pattern. No evidence for bowel obstruction. Repeat EGD done today (10/11) showed one non-obstructing non-bleeding cratered duodenal ulcer with no stigmata of bleeding was found in the duodenal bulb Continue IV flagyl and ceftriaxone Continue pain control GI on board recommended: Protonix 40 mg twice daily for 6 weeks then 20 mg daily thereafter Carafate 1 g twice daily for 6 weeks Repeat upper endoscopy in 3 months Avoid NSAIDs use Diet advanced as tolerated Anemia Hgb on discharge 9 Hgb increased to 9.1 today Monitor CBC Tobacco abuse Counseling on tobacco abuse On Nicotine patch DVT px ambulates/SCDs CODE STATUS FULL CODE Disposition Will discharge home tomorrow if pain improves Follow up with your primary care provider Dr. Andrade (Dr. Waters colleague) on 10/13 @ 9:45 AM Subjective Pt was seen and examined Lying in bed with no distress Pt said that abdominal pain slightly improves He tolerated his diet Diarrhea improves Denies any chest pain, palpitation, dizziness and SOB Physical Exam Physical Exam: General- No acute distress Head- atraumatic Eyes- PERRL, EOMI, ENT- oropharynx clear Neck- supple, no JVD Lungs- clear to auscultation Heart- regular rhythm; no murmur Abdomen- normal bowel sounds, soft, +tender with deep palpation Extremities- no calf tenderness Neuro- alert, oriented x 3; PERRL, EOMI; no facial palsy; no dysarthria Skin- warm & dry Results & Data Vital Signs (Past 12 Hours) Vital Signs Temp Pulse Pulse Resp BP BP Pulse Ox 10/11/18 14:52 36.8 C 63 20 123/75 99 10/11/18 10:00 55 L 18 108/68 100 10/11/18 09:44 57 L 18 112/72 100 10/11/18 09:29 64 16 110/66 100 10/11/18 09:00 36.2 C L 53 L 16 119/69 100 10/11/18 07:17 36.6 C 58 L 18 108/62 99
[2018-10-11 20:05] LABS: Amphetamines+Metham, Urine Neg (Neg); Barbiturates, Urine Neg (Neg); Benzodiazepine, Urine Pos (Neg); Cocaine, Urine Neg (Neg); MDMA (Ecstacy), Urine Neg (Neg); Methadone, Urine Neg (Neg); Opiate, Urine Pos (Neg); Phencyclidine, Urine Neg (Neg)
[2018-10-11] MEDS: LACTATED RINGER'S 1,000 ML IV SCH (20:16)
[2018-10-11] MEDS: cefTRIAXone SODIUM 1,000 MG in DEXTROSE 5% 50 ML IV SCH (20:16)
[2018-10-12] MEDS: MoRPHine SULFATE 2 MG/ML CARP IV PRN ×3 (00:51→13:48)
[2018-10-12] MEDS ORDERED: IOVERSOL 100ml IV PRN (01:45)
[2018-10-12] MEDS ORDERED: LACTATED RINGER'S 1,000 ML IV ONE (02:02)
[2018-10-12] MEDS: OXYCODONE HCL IR 5 MG TAB (IMMEDIATE RELEASE) PO PRN ×2 (07:03→11:45)
--- NOTE | 2018-10-12 07:22 | CT Scan Report ---
CT SCAN OF THE ABDOMEN AND PELVIS WITH IV CONTRAST CLINICAL HISTORY: Left-sided abdominal pain. COMPARISON STUDY: Multiple prior abdominal CT scans, most recently dated 10/06/2018. TECHNIQUE: Following the IV administration of 93 cc of Optiray 320, CT scan of the abdomen and pelvi s is performed from the lung bases to the proximal femora. Images are reviewed in the axial, sagittal , and coronal planes. IV contrast was administered without complication. A dose lowering technique wa s utilized adhering to the principles of ALARA. CT DOSE: 282.98 mGy.cm FINDINGS: Lung bases: The heart is normal in size and without pericardial effusion. There are trace pleural eff usions with dependent atelectasis. There is a small hiatal hernia. Liver: The contrast-enhanced liver is normal in size, contour, and attenuation. There is no intrahepa tic biliary ductal dilatation. The hepatic veins and portal veins are patent. Gallbladder: The gallbladder is contracted. The gallbladder wall appears mildly thickened and hyperem ic, likely related to adjacent ascites. Spleen: Normal in size and attenuation. Pancreas: Unremarkable. Adrenal glands: Unremarkable. Kidneys: The contrast enhanced kidneys are normal in size and without hydronephrosis. The kidneys enh ance symmetrically. Abdominal vasculature: The abdominal aorta is normal in course and caliber. There is a common origin of the celiac trunk and superior mesenteric artery. Bowel: There is no bowel obstruction. The right colon is distended and filled with liquid stool. Ther e are also fluid-filled loops of normal caliber small bowel. The appendix is normal as visualized. Peritoneum: There is no intraperitoneal free air. There is a small volume of abdominopelvic ascites. Postoperative change is noted in the right lower quadrant. Lymphadenopathy: None. Pelvic viscera: The bladder, prostate, and seminal vesicles are normal as imaged. There are small alex ateral fat-containing inguinal hernias. Skeletal structures: No lytic or blastic lesions are seen. IMPRESSION: 1. The right colon is distended and filled with liquid stool, and there are also fluid-filled loops o f normal caliber small bowel. Correlate clinically for evidence of a mild enterocolitis/diarrheal ill ness. There is no associated bowel wall thickening. 2. There is a small volume of abdominopelvic ascites. 3. Trace pleural effusions. Electronically signed by: Augusto Pardo M.D. 10/12/2018 7:21 AM
[2018-10-12 07:35] VITALS: BP 120/70; TEMP 98.2
[2018-10-12] MEDS: metroNIDAZOLE 500 MG/100 ML BAG IV SCH (07:44)
[2018-10-12] MEDS: NICOTINE 14 MG/24 HR PATCH TD SCH (07:44)
[2018-10-12] MEDS: PANTOprazole 40 MG in SYRINGE 0 ML IV SCH (07:44)
[2018-10-12] MEDS: SUCRALFATE 1 GM/10 ML UDC PO SCH ×2 (07:44→13:48)
--- NOTE | 2018-10-12 10:09 | Discharge Summary ---
Date of Service October 12, 2018 Admission HPI Per Admitting Provider History obtained from patient and records. Medical history significant for duodenal ulcer, hx colitis, chronic anemia (baseline hemoglobin of 11), ongoing tobacco abuse. Recent confinement from October 05-2018 for 2019 for abdominal pain, diarrhea symptoms. EGD showed nonbleeding duodenal ulcer. Twice daily PPI recommended for next 3 months. During confinement, patient developed left-sided abdominal pain. CAT scan showed mild cecal/sigmoid colitis. IV Ceftriaxone/Flagyl given. Patient requested early discharge despite persistent abdominal pain secondary to job concerns. Patient discharged on Cipro, Flagyl, PPI Rx. At home/work, patient noted worsening achy lower abdominal pain and nonbloody diarrhea symptoms despite compliance with medications. Today patient had 3 episodes of hematemesis and maroon-colored stool along with dizziness symptoms. No fever, no chills. No chest pain, no S OB. 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, motel employee Admission Exam Per Admitting Provider GENERAL: uncomfortable, no respiratory distress SKIN: Pallor , warm HEENT: Pale palpebral conjunctivae, no ptosis, dry buccal mucosa NECK : Supple, no tenderness CHEST : Decreased breath sounds , no tenderness HEART : bradycardic, no obvious murmurs ABDOMEN: Some distention, generalized abdominal tenderness without guarding EXTREMITIES : No LE swelling/tenderness, no other conspicuous deformities noted NEUROLOGIC : Coherent, no facial asymmetry, no other gross focality Principal Diagnosis UGI Bleed Peptic Ulcer Abd Pain Nausea and vomiting Discharge Exam ROS-No Headache, No Visual Changes, No Nausea, No Vomiting, No Fever, No Chills, No Neck Pain or Stiffness, No Chest Pain, No Palpitations, No SOB, No SOMERS, No Cough, No Sputum, No Wheezing, + Abdominal Pain, No Diarrhea, No Hematemesis, No Hemoptysis, No Unexpected Weight Loss, No Flank pain, No Melena, No Hematoch ezia, No Frequency, No Urgency, No Burning, No Hematuria, No Rashes, No Diaphoresis. Appetite is Normal Physical Exam Gen-AAO x 3, NAD, Afebrile Head-NCAT, EOMI, PERRLA, Anicteric Sclera, No Posterior Pharyngeal Erythema Neck-Supple, No JVD, No Thyromegaly, No Masses, No LAD, No Bruits Lungs-Clear to Auscultation Bilaterally, No Rales, No Rhonchi, No Wheezing, No Crepitus Chest-No S4, +S1, +S2, No S3, No Murmurs, No Rubs, No Gallops, No Ectopy Abdomen-Soft, Bowel Sounds Present, +Tender, Non Distended, No Hepatomegaly, No Splenomegaly, No Palpable Masses, No Rebound, No Rigidity, No Guarding Musculoskeletal-Full Range of Motion Bilaterally, No CVAT Extremities-No Cyanosis, No Clubbing, No Edema Nuero-Cranial Nerves II-XII grossly intact, Motor WNL, DTRs WNL, Strength WNL, Non Focal Psych-Normal Mood Discharge Data Allergies Allergy/AdvReac Type Severity Reaction Status Date / Time Penicillins Allergy Severe ANAPHYLAXIS Verified 10/09/18 20:49 promethazine Allergy Severe SHORTNESS Verified 10/09/18 20:49 OF BREATH tramadol Allergy Severe SHORTNESS Verified 10/09/18 20:49 OF BREATH diphenhydramine Allergy Unknown Itchiness Verified 10/09/18 20:49 and trouble breathing. NSAIDS (Non-Steroidal AdvReac Severe Gastrointestinal Unverified 10/09/18 20:49 Anti-Inflamma Upset lactose AdvReac Intermediate nausea Verified 10/09/18 20:49 ANTIINFLAMMATORIES AdvReac Mild migraines Uncoded 10/09/18 20:49 Consultations 10/09/18 21:04 ED Decision to Admit Stat 10/09/18 23:11 Consult Gastroenterology Routine Procedures Performed Operation Date: 10/11/18 09:45 Actual Procedures p Esophagogastroduodenoscopy - Karyn Olguin Ordered Studies 10/12/18 01:13 CT abd pelvis IV con only Urgent Current Diagnoses Gastrointestinal hemorrhage, unspecified (10/09/18) Epigastric pain (10/09/18) Allergies Penicillins Allergy (Severe, Verified 10/09/18 20:49) ANAPHYLAXIS promethazine Allergy (Severe, Verified 10/09/18 20:49) SHORTNESS OF BREATH tramadol Allergy (Severe, Verified 10/09/18 20:49) SHORTNESS OF BREATH diphenhydramine Allergy (Unknown, Verified 10/09/18 20:49) Itchiness and trouble breathing. NSAIDS (Non-Steroidal Anti-Inflamma Adverse Reaction (Severe, Unverified 10/09/18 20:49) Gastrointestinal Upset lactose Adverse Reaction (Intermediate, Verified 10/09/18 20:49) nausea ANTIINFLAMMATORIES Adverse Reaction (Mild, Uncoded 10/09/18 20:49) migraines Height/Weight/Isolation Height 5 ft 7 in Weight 60.1 kg Chemistry 10/11/18 10:39 Sodium 141 Potassium 3.7 Chloride 111 H Carbon Dioxide 25 Anion Gap 5.0 BUN 7 Creatinine 0.79 Glucose 97 Hospital Course (1) Epigastric pain: Recently admitted for abdominal pain and requested to be discharge because he did not want to get in trouble at his work Was discharge on Cipro, flagyl, opioid and PPI Worsening abdominal pain associated with nausea/vomiting and dark stools KUB showed unremarkable bowel gas pattern. No evidence for bowel obstruction. Repeat EGD done showed non Bleeding Ulcer DC today-Continue Flagyl and Cipro Continue pain control GI to repeat scope in 3 months Reg Diet (2) Nausea vomiting and diarrhea: Present on admission with severe abdominal pain associated with nausea/vomiting and diarrhea S/P EGD done on 10/06 by Gastro showed non bleeding duodenal ulcer, Repeat the same Anemia Hgb on discharge 9 Hgb today 9.1 Tobacco abuse Counseling on tobacco abuse On Nicotine patch DC home today f/u c Dr Waters 10/13 at 925 am (2) Nausea vomiting and diarrhea: Total Time Total Time Spent Total Time Spent (In Minutes): 40 mins Total Time Includes: Examination of the Patient, Discharge Planning, Medication Reconciliation and Communication With Other Providers Discharge Plan Discharge Items Patient Disposition: Home - Self-Care Reason For Visit: GI BLEED Discharge Diagnosis: Non Bleeding Peptic Ulcer UGI Bleed Gastritis Nausea and Vomiting Condition: Good Discharge Goals: Decrease discomfort and Improve function Activity: Resume your previous activity Lifting: Gradually increase as tolerated Bathing: No limitations Sexual Activity: When tolerated Exercise/Sports: Gradually increase as tolerated Driving/Machine Use: No limitations Weightbearing: Left weightbearing and Right weightbearing Non-emergency contact: Primary Care Provider and Bath Design Sales Consultant Call non-emergency contact if: you have any medication questions, your symptoms worsen and your pain is worsening Follow-up/Referrals: Martin Waters MD [Primary Care Provider] - 10/13/18 9:25 am Wilda Maciel MD [Hospitalist] - (12 weeks) Diet: Regular Addtl Provider Instructions: Repeat EGD 3 Months Prescriptions: New sucralfate 100 mg/mL Suspension 10 ml PO QID Qty: 400 RF: 0 prochlorperazine maleate [Compazine] 10 mg tablet 10 mg PO Q6H PRN (Reason: nausea and vomiting) Qty: 60 RF: 0 Continued pantoprazole 40 mg tablet,delayed release (DR/EC) 40 mg PO BID Qty: 60 RF: 1 metronidazole [Flagyl] 500 mg tablet 500 mg PO TID Qty: 7 RF: 0 ciprofloxacin HCl [Cipro] 500 mg tablet 500 mg PO Q12H Qty: 7 RF: 0 oxycodone 5 mg Tablet 5 mg PO Q4H PRN (Reason: severe pain) Qty: 10 RF: 0 loratadine-pseudoephedrine [Claritin-D 24 Hour] 10-240 mg Tablet Extended Release 24 Hr 1 tab PO DAILY RF: 0 Changed acetaminophen [Tylenol Extra Strength] 500 mg Tablet 500 mg PO Q4H Qty: 0 RF: 0 Stand-Alone Forms: [facility], [facility], Work/School Release (Inpt) Discharge Orders: Discharge Order (Routine); Ordered 10/12/18 Ordered By: Rian Ramos Admission Data Admit Date/Time: 10/09/18 21:59 Attending Provider: Rian Ramos Admit Provider: Yasir Alberts Primary Care Provider: Martin Waters Other Providers: Yasir Alberts ; Wilda Maciel Service: Medical Other Interventions: Discharge Summary Assessment (RN) Last Done: 10/11/18 10:08
[2018-10-12 10:36] VITALS: PULSE 58
[2018-10-12] MEDS: METOCLOPRAMIDE HCL INJ 5 MG/ML 2 ML VIAL IV PRN (10:49)
[2018-10-14 12:56] LABS: 7-Aminoclonaz, Confirm NEGATIVE NG/ML (CUTOFF=25); Hydro-Alp Ur, GC/MS NEGATIVE NG/ML (CUTOFF=25); Hydrocodone Urine NEGATIVE NG/ML (CUTOFF=50); Hydromor Urine NEGATIVE NG/ML (CUTOFF=50); Hydroxyethylflurazepam, Conf NEGATIVE NG/ML (CUTOFF=50); Hydroxytriazolam NEGATIVE NG/ML (CUTOFF=50); Lorazepam, Ur GC/MS NEGATIVE NG/ML (CUTOFF=50); Morphine Urine 909 NG/ML (CUTOFF=50); Nordiazepam, Confirm NEGATIVE NG/ML (CUTOFF=50); Norhydrocodone Conf Ur NEGATIVE NG/ML (CUTOFF=50); Noroxycodone Urine 330 NG/ML (CUTOFF=50); Oxazepam Ur, GC/MS NEGATIVE NG/ML (CUTOFF=50); Oxycodone Urine 251 NG/ML (CUTOFF=50); Temazepam, Confirm NEGATIVE NG/ML (CUTOFF=50)
== END 2018-10-12 14:40 | disposition home or self-care (01) | DRG 378 ==
LOC: ED 19:07 → 4W 21:59 → SUATTDRO 21:59 → 4W 22:45
DX: Y92.009 Unspecified place in unspecified non-institutional (private) residence as the place of occurrence of the external cause; K92.0 Hematemesis; Z83.3 Family history of diabetes mellitus; T39.95XA Adverse effect of unspecified nonopioid analgesic, antipyretic and antirheumatic, initial encounter; D62 Acute posthemorrhagic anemia; F17.210 Nicotine dependence, cigarettes, uncomplicated; K21.9 Gastro-esophageal reflux disease without esophagitis; K29.70 Gastritis, unspecified, without bleeding; E87.6 Hypokalemia; K26.9 Duodenal ulcer, unspecified as acute or chronic, without hemorrhage or perforation; Z88.0 Allergy status to penicillin

== ENCOUNTER 2018-10-17 03:34 | Inpatient (IN) ==
[2018-10-17] MEDS ORDERED: GI COCKTAIL ED USE PO ONE (03:44)
[2018-10-17] MEDS ORDERED: METOCLOPRAMIDE HCL INJ 5 MG/ML 2 ML VIAL IV STA (03:44)
[2018-10-17] MEDS ORDERED: SODIUM CHLORIDE 0.9% 1000ML 1,000 ML IV SCH (03:45)
--- NOTE | 2018-10-17 03:50 | Emergency Department Note ---
History of Present Illness General Chief complaint: Abdominal Pain Stated complaint: ABDOMINAL PAIN History of Present Illness Maximum Pain Intensity: 8 This 22-year-old presents to the ER complaining of ongoing epigastric pain Location: Epigastric Quality: Aching Severity: Moderate Duration: Past few weeks Timing: Started several weeks ago Context: Pain persisted and patient came back in Modifying factors: better with nothing; worse with eating Patient signed out AMA the other day. The pain got worse and patient returns. He states he has been taking his PPI and Carafate as directed. He has been vomiting. No blood or black in it. He has ongoing dark stool. Patient denies chest pain, dyspnea, fevers, back pain, urinary symptoms. EGD last week showed nonbleeding ulcer. H. pylori test was negative Home Medications Home Medications Medication Instructions Recorded Confirmed Type ciprofloxacin HCl [Cipro] 500 mg PO Q12H #7 tab 10/07/18 10/09/18 Rx metronidazole [Flagyl] 500 mg PO TID #7 tab 10/07/18 10/09/18 Rx oxycodone 5 mg PO Q4H PRN #10 tab 10/07/18 10/09/18 Rx pantoprazole 40 mg PO BID #60 tab 10/07/18 10/09/18 Rx loratadine-pseudoephedrine 1 tab PO DAILY 10/09/18 10/09/18 History [Claritin-D 24 Hour] acetaminophen [Tylenol Extra 500 mg PO Q4H #0 tab 10/12/18 10/09/18 Rx Strength] prochlorperazine maleate 10 mg PO Q6H PRN #60 tab 10/12/18 Rx [Compazine] sucralfate 10 ml PO QID #400 ml 10/12/18 Rx Allergies Allergy/AdvReac Type Severity Reaction Status Date / Time Penicillins Allergy Severe ANAPHYLAXIS Verified 10/09/18 20:49 promethazine Allergy Severe SHORTNESS Verified 10/09/18 20:49 OF BREATH tramadol Allergy Severe SHORTNESS Verified 10/09/18 20:49 OF BREATH diphenhydramine Allergy Unknown Itchiness Verified 10/09/18 20:49 and trouble breathing. NSAIDS (Non-Steroidal AdvReac Severe Gastrointestinal Unverified 10/09/18 20:49 Anti-Inflamma Upset lactose AdvReac Intermediate nausea Verified 10/09/18 20:49 ANTIINFLAMMATORIES AdvReac Mild migraines Uncoded 10/09/18 20:49 Past Med/Surg History Medical History GERD (gastroesophageal reflux disease) (Chronic) H/O: duodenal ulcer Surgical History H/O esophagogastroduodenoscopy 10/06/18 MAC Hx of hernia repair Family History Other Diabetes Gallbladder disease Heart disease Hypertension Lung disease Seizure Social History Preferred Language: Armenian Communication Ability: Effective Beliefs That Will Affect Care: None marital status: Single Current Living Situation: Alone current occupational status: employed Feels Safe at Home: Yes Smoking Status: Current every day smoker Tobacco Type: cigarettes Cigarettes Per Day: 20 x 5 years Hx Alcohol Use: No Hx Substance Use: No Review of Systems All systems reviewed & are unremarkable except as noted in HPI & below Physical Exam Vital Signs Vital Signs - 24 hr 10/17/18 03:38 10/17/18 04:00 Temperature 36.7 C Temperature Source Oral Sepsis Recent Fever Within 48 Hours No Sepsis Action Taken by Nursing No Action Required Pulse Rate 63 Respiratory Rate 18 Respiratory Effort / Characteristics Non-Labored Respiratory Depth Normal Blood Pressure 118/71 Blood Pressure Mean 86 Pulse Oximetry 99 98 Oxygen Delivery Method Room Air Room Air VITALS: Vitals are noted on the nurse's note and reviewed by myself. Vital signs stable. GENERAL: White male, in no acute distress, nondiaphoretic, well-developed well-nourished. SKIN: Capillary reflex less than 2 seconds. HEENT: Normocephalic. PERRLA. EOMI. Nares patent. Mucous membranes moist. Neck is supple without nuchal rigidity. HEART: Regular rate and rhythm without murmurs gallops or rubs. LUNGS: Clear to auscultation bilaterally without wheezes, rales or rhonchi. No retractions or accessory muscle use. ABDOMEN: Positive bowel sounds x 4. Normal tympanic percussion. Soft, tender to palpation epigastric left upper quadrant, no CVA tenderness, without masses or organomegaly. Avilez sign negative. No guarding or rebound tenderness. Rectal exam: Brown stool guaiac negative er medical technician present MUSCULOSKELETAL: No gross musculoskeletal defects. NEURO: Patient was alert and oriented to person place and time. Normal sensation to light and sharp touch. No focal neurological deficits. Course Administered Medications Sodium Chloride (Nss 1000ml) 1,000 mls @ 999 mls/hr IV .Q1H1M JULI Stop: 10/17/18 04:45 Last Admin: 10/17/18 03:57 Dose: 999 mls/hr Documented by: [id number] Discontinued Medications Al Hydrox/Mg Hydrox/Simethicone () 1 dose PO ONE ONE Stop: 10/17/18 03:45 Last Admin: 10/17/18 03:57 Dose: 1 dose Documented by: [id number] Metoclopramide HCl (Reglan) 10 mg IV NOW STA Stop: 10/17/18 03:45 Last Admin: 10/17/18 03:57 Dose: 10 mg Documented by: [id number] Medical Decision Making Medical Records Attestation: I reviewed the patient's medical records. Home Medications Current Medication List: was personally reviewed by me Laboratory Data Attestation: I reviewed the patient's lab results. Result diagrams: 10/17/18 03:50 10/17/18 03:50 Lab Results 10/17/18 10/17/18 Range/Units 03:50 03:50 WBC 7.38 (4.8-10.8) K/uL RBC 4.16 L (4.7-6.1) M/uL Hgb 10.5 L (14.0-18.0) g/dL Hct 32.9 L (42-52) % MCV 79.1 L (80-100) fL MCH 25.2 (25-34) pg MCHC 31.9 L (32-36) g/dL RDW Std Deviation 40.7 (36.4-46.3) fL RDW Coeff of Marjorie 14.3 (11.5-14.5) % Plt Count 352 (130-400) K/uL MPV 9.2 (7.4-10.4) fL Immature Gran % (Auto) 0.1 % Neut % (Auto) 65.4 % Lymph % (Auto) 24.9 % [place] % (Auto) 6.8 % Eos % (Auto) 2.3 % Baso % (Auto) 0.5 % Immature Gran # (Auto) 0.01 (0.00-0.02) K/uL Neut # (Auto) 4.82 (1.4-6.5) K/uL Lymph # (Auto) 1.84 (1.2-3.4) K/uL [place] # (Auto) 0.50 (0.11-0.59) K/uL Eos # (Auto) 0.17 (0-0.5) K/uL Baso # (Auto) 0.04 (0-0.2) K/uL Sodium 143 (136-145) mmol/L Potassium 3.4 L (3.5-5.1) mmol/L Chloride 110 H (98-107) mmol/L Carbon Dioxide 26 (21-32) mmol/L Anion Gap 7.0 (3-11) BUN 14 (7-18) mg/dl Creatinine 0.83 (0.6-1.4) mg/dl Est Cr Clr Drug Dosing 110.4 ml/min Est GFR ( Amer) 142.7 Est GFR (Non-Af Amer) 123.2 BUN/Creatinine Ratio 16.3 (10-20) Glucose 110 H (70-99) mg/dl Calcium 9.0 (8.5-10.1) mg/dl Magnesium 2.3 (1.8-2.4) mg/dl Total Bilirubin 0.2 (0.2-1) mg/dl AST 8 L (15-37) U/L ALT 16 (12-78) U/L Alkaline Phosphatase 57 (45-117) U/L Total Creatine Kinase 88 (39-308) U/L Total Protein 7.9 (6.4-8.2) gm/dl Albumin 4.0 (3.4-5.0) gm/dl Globulin 3.9 (2.5-4.0) gm/dl Albumin/Globulin Ratio 1.0 (0.9-2) Lipase 288 (73-393) U/L Imaging Data Attestation: I personally reviewed and interpreted this imaging study as follows: MDM Narrative Prior records/ancillary studies reviewed. Triage Nursing notes reviewed. The patient's history was concerning for abdominal pain. Differential diagnosis: Etiologies such as appendicitis, diverticulitis, PUD, biliary pathology, UTI, pancreatitis, obstruction, mesenteric ischemia, aortic pathology, infections, inflammatory bowel disease, renal colic, as well as others were entertained. Physical examination findings: As above. ER treatment provided: GI cocktail, IV fluids, Reglan On reassessment the patient felt better. Patient signed out AMA the other day. EGD last week showed nonbleeding ulcer. Diagnostics interpreted by me: The labs revealed improving anemia Stable creatinine No leukocytosis Imaging studies: Acute abdominal series with no free air, obstruction or pneumothorax per my interpretation Consultation: A consultation was placed with the hospitalist, Dr. Tatum The case was discussed and diagnostics were reviewed. The patient was evaluated in the ER for further treatment. Exam and history seem consistent with intractable abdominal pain. Medicine was consulted. Patient will be evaluated for possible readmission. Patient is agreeable to treatment plan of readmission. He had a improving anemia. Guaiac was negative. By the evaluation outlined above emergent etiologies such as appendicitis, diverticulitis, biliary pathology, UTI, pancreatitis, obstruction, mesenteric ischemia, aortic pathology, infections, inflammatory bowel disease, renal colic, as well as others were deemed relatively unlikely. The pt informed about the findings as listed above. All questions were answered and pleased with the treatment. Case reviewed with my attending. The chart was completed utilizing [employer] Speech voice recognition software. Grammatical errors, random word insertions, pronoun errors, and incomplete sentences are an occassional consequence of this system due to software limitations, ambient noise, and hardware issues. Any formal questions or concerns about the content, text, or information contained within the body of this dictation should be directly addressed to the physician field research assistant for clarification. Impression & Plan GERD (gastroesophageal reflux disease), Intractable epigastric abdominal pain Discharge Plan Visit Data Chief Complaint: Abdominal Pain Stated Complaint: ABDOMINAL PAIN ED Provider: Jasson Acosta ED Midlevel Provider: Clemencia Burris Discharge Problem: GERD (gastroesophageal reflux disease), Intractable epigastric abdominal pain Patient Disposition: Being Evaluated by Hospitalist Condition: Fair Forms Stand Alone Forms: My [facility] [place] Prescriptions Prescriptions: No Action pantoprazole 40 mg tablet,delayed release (DR/EC) 40 mg PO BID Qty: 60 RF: 1 metronidazole [Flagyl] 500 mg tablet 500 mg PO TID Qty: 7 RF: 0 ciprofloxacin HCl [Cipro] 500 mg tablet 500 mg PO Q12H Qty: 7 RF: 0 oxycodone 5 mg Tablet 5 mg PO Q4H PRN (Reason: severe pain) Qty: 10 RF: 0 loratadine-pseudoephedrine [Claritin-D 24 Hour] 10-240 mg Tablet Extended Release 24 Hr 1 tab PO DAILY RF: 0 sucralfate 100 mg/mL Suspension 10 ml PO QID Qty: 400 RF: 0 prochlorperazine maleate [Compazine] 10 mg tablet 10 mg PO Q6H PRN (Reason: nausea and vomiting) Qty: 60 RF: 0 acetaminophen [Tylenol Extra Strength] 500 mg Tablet 500 mg PO Q4H Qty: 0 RF: 0 Referrals Referrals: Martin Waters MD [Primary Care Provider] - Discharge Problem: GERD (gastroesophageal reflux disease) Qualifiers: Esophagitis presence: esophagitis presence not specified Qualified Code(s): K21.9 - Gastro-esophageal reflux disease without esophagitis
[2018-10-17 03:59] LABS: Basophils # (auto) 0.04 K/uL (0-0.2); Basophils % (auto) 0.5 %; Eosinophils # (auto) 0.17 K/uL (0-0.5); Eosinophils % (auto) 2.3 %; Hematocrit (blood only) 32.9 % (42-52); Hemoglobin 10.5 g/dL (14.0-18.0); Immature Granulocytes # (auto) 0.01 K/uL (0.00-0.02); Immature Granulocytes % (auto) 0.1 %; Lymphocytes # (auto) 1.84 K/uL (1.2-3.4); Lymphocytes % (auto) 24.9 %; Mean Corpuscular Hgb Conc 31.9 g/dL (32-36); Mean Corpuscular Volume 79.1 fL (80-100); Mean Platelet Volume 9.2 fL (7.4-10.4); Monocytes % (auto) 6.8 %; Neutrophils # (auto) 4.82 K/uL (1.4-6.5); Neutrophils % (auto) 65.4 %; Platelet Count 352 K/uL (130-400); RDW Coefficient of Variation 14.3 % (11.5-14.5); RDW Standard Deviation 40.7 fL (36.4-46.3); Red Blood Count 4.16 M/uL (4.7-6.1); White Blood Count 7.38 K/uL (4.8-10.8)
[2018-10-17 04:22] LABS: BUN Creatinine Ratio 16.3 (10-20); Creatinine Clr Calc Pharmacy 110.4 ml/min; Est GFR (African American) 142.7; Est GFR (Non-African American) 123.2; Magnesium 2.3 mg/dl (1.8-2.4); Potassium 3.4 mmol/L (3.5-5.1)
[2018-10-17 04:25] LABS: Bilirubin,Total 0.2 mg/dl (0.2-1); Globulin 3.9 gm/dl (2.5-4.0); Total Protein 7.9 gm/dl (6.4-8.2)
[2018-10-17] MEDS ORDERED: DICYCLOMINE HCL 10 MG/ML 2 ML AMP/VIAL IM ONE (04:48)
[2018-10-17] MEDS ORDERED: ACETAMINOPHEN 1,000 MG/100 ML VIAL IV STA (04:53)
[2018-10-17] MEDS ORDERED: PANTOprazole 80 MG in DEXTROSE 5% 100 ML IV SCH (05:30)
[2018-10-17] MEDS ORDERED: HYDROmorphone INJ 0.5 MG/0.5 ML SYR ONE (05:49)
[2018-10-17] MEDS: PANTOprazole 40 MG in DEXTROSE 5% 100 ML IV SCH ×4 (05:51→20:36)
[2018-10-17] MEDS ORDERED: PROCHLORPERAZINE MALEATE 10 MG TAB PO PRN (06:25)
[2018-10-17] MEDS ORDERED: NITROGLYCERIN SL 0.4 MG/TAB TAB SL PRN (06:25)
[2018-10-17] MEDS ORDERED: ACETAMINOPHEN 325 MG TAB PO PRN (06:25)
[2018-10-17] MEDS ORDERED: POTASSIUM CHLORIDE 10 MEQ TABCR PO STA (06:29)
--- NOTE | 2018-10-17 07:17 | XRay Report ---
PA CHEST RADIOGRAPH AND UPRIGHT AND SUPINE AP RADIOGRAPHS OF THE ABDOMEN CLINICAL HISTORY: Upper abdominal pain. COMPARISON STUDY: Chest radiograph July 09, [address] of the abdomen and pelvis October 12, 2018. FINDINGS: Lung volumes are normal. There is no pneumothorax or pleural effusion. There is no evidenc e for pulmonary edema or pneumonia. Cardiac size is normal. Mediastinal contours are normal. There is no free air. Right lower quadrant surgical clips are noted. The bowel gas pattern is normal. IMPRESSION: 1. No free air or evidence of bowel obstruction. 2. No acute cardiopulmonary findings. Electronically signed by: Iftikhar Pulliam M.D. 10/17/2018 7:16 AM
[2018-10-17 07:25] LABS: Hematocrit (blood only) 29.4 % (42-52); Hemoglobin 9.2 g/dL (14.0-18.0)
[2018-10-17] MEDS: SODIUM CHLORIDE 0.9% 1000ML 1,000 ML IV SCH ×2 (08:14→15:26)
[2018-10-17] MEDS: SUCRALFATE 1 GM/10 ML UDC PO SCH ×4 (08:17→20:37)
[2018-10-17] MEDS: HYDROmorphone INJ 0.5 MG/0.5 ML SYR IV PRN ×5 (08:27→21:21)
[2018-10-17] MEDS: ONDANSETRON INJ 2 MG/ML 2 ML VIAL IV PRN (08:27)
--- NOTE | 2018-10-17 09:11 | History and Physical Report ---
DATE OF ADMISSION: 10/17/2018 CHIEF COMPLAINT: Abdominal pain and few episodes of hematemesis. HISTORY OF PRESENT ILLNESS: This is a 22-year-old male with past medical history significant for chronic anemia, GI bleed. Recent endoscopy showed duodenal ulcer and also CT scan showed possible colitis, recently discharged home, comes back with left upper quadrant abdominal pain severe and nausea, vomiting. He said he has 2-3 episodes of small amount of blood in his vomitus. Denies any diarrhea, constipation or blood in the stools. Normal bladder movements. No bloody micturition. No hematuria. No headaches, no dizziness, no sore throat. Appetite is okay. No difficulty swallowing. No chest pain, no shortness of breath, no cough, no fever, no chills, no swelling of the legs, otherwise doing okay. ALLERGIES: PENICILLIN, PROMETHAZINE, TRAMADOL, DIPHENHYDRAMINE, NSAIDS, LACTOSE. PAST MEDICAL HISTORY: As mentioned above. PAST SURGICAL HISTORY: EGDs. MEDICATIONS: Currently on oxycodone 5 mg p.o. q. 4 hours p.r.n., Protonix 40 mg p.o. b.i.d., Compazine 10 mg p.o. q. 6 hours p.r.n., sucralfate 10 mg p.o. q.i.d. FAMILY HISTORY: No family history on file. SOCIAL HISTORY: Single, smokes 0.1 pack a day. No alcohol use, no drug use. REVIEW OF SYMPTOMS: As per HPI. Rest of review of symptoms is negative. PHYSICAL EXAMINATION: GENERAL: The patient is of moderate build, not in acute distress. VITAL SIGNS: Temperature 36.7, pulse 74, respiratory rate 18, blood pressure 118/70, oxygen 98% room air. HEENT: No pallor, no icterus. Pupils equal, round and reactive to light. NECK: No JVD. No neck masses, no carotid bruit. CARDIOVASCULAR: S1, S2 heard, regular rate and rhythm, no murmur, no gallop. RESPIRATORY SYSTEM: Normal AP diameter. No accessory muscle use. No wheezing, no crackles. ABDOMEN: Soft, bowel sounds present. Tenderness in the left upper quadrant region. No rigidity, no distention. CENTRAL NERVOUS SYSTEM: Cranial nerves II-XII grossly intact, nonfocal. EXTREMITIES: No edema, no erythema. LABORATORY DATA: WBC 7.3, hemoglobin 10.5, hematocrit 32.9, platelets 352. Sodium 143, potassium 3.4, chloride 110, bicarbonate 26, BUN 14, creatinine 0.8, serum glucose 110, calcium 9, magnesium 2.3, total bilirubin 0.2, AST 8, ALT 16, alkaline phosphatase 57, total creatinine kinase 88. Lipase 288. Chest x-ray unremarkable. Abdominal x-ray, await for official report. ASSESSMENT AND PLAN: This is a 22-year-old male who presents with abdominal pain, nausea, vomiting, possible hematemesis. 1. Nausea, vomiting, possible hematemesis. His last EGD a few days ago showed duodenal ulcer. We will place him on Protonix drip. H and H q. 6 hours. Keep him n.p.o., IV fluids. Consult GI for further recommendations. 2. Abdominal pain in the left upper quadrant region. Pain control. Recent Ct scan showed colitis. We will await GI evaluation. 4. Hypokalemia. We will replace. 5. Tobacco abuse. Needs counseling. 6. Anemia . Hemoglobin 10.5. Hemoglobin 9 on last discharge. We will follow the H and H q. 6 hours. 7. Deep venous thrombosis prophylaxis, SCDs. 8. Disposition: Admit to med/surg tele. Level 1 full code. MTDD
--- NOTE | 2018-10-17 10:06 | Gastrointestinal Consultation ---
Date of Consultation October 17, 2018 Assessment & Plan (1) Intractable epigastric abdominal pain: 22 year old male with duodenal ulcer, admitted for worsening upper abdominal pain, hematemesis prior to arrival. Since admission he has vomited x 2 (all bilious) and denies further evidence of coffee ground appearing emesis or hematemesis. He notes chronic loose stool but denies any BM in the past 24 hours. No prior black/bloody stools. HGB is at baseline this AM (9.2) without elevation of BUN. He has normal liver function test and non-elevated lipase. - Would continue IV PPI x 48 hours - Would keee NPO until discuss with my attending - No current indication to repeat upper endoscopy - Trend H&H - Monitor and document all GI output - Will need OP EGD in about 3 months - Will need OP colonoscopy for chronic diarrhea - Check stool culture, stool for c.diff if diarrhea returns Thank you for allowing us to participate in the care of this patient. Please call with any acute changes, questions or concerns. Please see addendum below with additional recommendation from my supervising physician. Present on Admission?: Yes Supervising Physician Co-Signing Physician Notes Vinay seen and examined the patient with AFIA Barger whose note reflects our findings and plan. History of Present Illness Reason for Consultation: abd pain, hematmesis Requesting Physician: Rc Attending Physician: Rian Ramos DO History of Present Illness 22 year old male with history of hernia repair, duodenal ulcer who presents through the ED for evaluation of persistent abdominal pain x 3 months worsening over the past few day w/ hematemesis prior to arrival. Was seen in ED x 3 for this, admitted x 3 as well. Prior to admission was having severe epigastric abdominal pain associated w/ nausea. When he vomited yesterday he noted BRB mixed with emesis. More recently vomitted last evening and this AM and this was bilious, no BRB or coffee ground appearing emesis. He notes alternating stools, typically diarrhea. Has not moved bowels in 24 hours. Dark brown stool of recent. No black or blood stools. He had a second look EGD for worsening pain, h ematemesis last week which was negative. Does feel fatigued. No lightheadedness, dizziness. No fever, chills, CP, SOB. About 1 month ago he had unexplained bilateral knee swelling which resolved. NSAIDs: Aleve BID, Advil BID but none in 2 weeks ETOH some EGD 10/11/18: Normal esophagus.Normal stomach.One non-obstructing non-bleeding duodenal ulcer with no stigmata of bleeding. NSAID induced etiology. Normal second portion of the duodenum and third portion of the duodenum.No specimens collected. EGD 10/06/18: Normal esophagus.Erythematous mucosa in the antrum. Biopsied. One non-bleeding duodenal ulcer with no stigmata of bleeding. Normal second portion of the duodenum. Colonoscopy: none CT: No evidence of bowel obstruction. No evidence of free air No evidence of acute diverticulitis. No evidence of acute appendicitis. Small amount of free pelvic fluid Nonspecific gastric antral/pyloric wall thickening Allergies Allergy/AdvReac Type Severity Reaction Status Date / Time Penicillins Allergy Severe ANAPHYLAXIS Verified 10/17/18 04:37 promethazine Allergy Severe SHORTNESS Verified 10/17/18 04:37 OF BREATH tramadol Allergy Severe SHORTNESS Verified 10/17/18 04:37 OF BREATH diphenhydramine Allergy Unknown Itchiness Verified 10/17/18 04:37 and trouble breathing. NSAIDS (Non-Steroidal AdvReac Severe Gastrointestinal Unverified 10/17/18 04:37 Anti-Inflamma Upset lactose AdvReac Intermediate nausea Verified 10/17/18 04:37 ANTIINFLAMMATORIES AdvReac Mild migraines Uncoded 10/17/18 04:37 Home Medications Home Medications Medication Instructions Recorded Confirmed Type oxycodone 5 mg PO Q4H PRN #10 tab 10/07/18 10/17/18 Rx pantoprazole 40 mg PO BID #60 tab 10/07/18 10/17/18 Rx prochlorperazine maleate 10 mg PO Q6H PRN #60 tab 10/12/18 10/17/18 Rx [Compazine] sucralfate 10 ml PO QID #400 ml 10/12/18 10/17/18 Rx Patient History Medical History GERD (gastroesophageal reflux disease) (Chronic) H/O: duodenal ulcer Surgical History H/O esophagogastroduodenoscopy 10/06/18 MAC Hx of hernia repair Family History Other Diabetes Gallbladder disease Heart disease Hypertension Lung disease Seizure Social History Preferred Language: Occitan Communication Ability: Effective 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 Beliefs That Will Affect Care: None marital status: Single Current Living Situation: Alone current occupational status: employed Other Information That Helps Us Care for You: No Feels Safe at Home: Yes Safety Concerns: Feels Safe At This Time Smoking Status: Current every day smoker Tobacco Type: cigarettes Cigarettes Per Day: 20 x 5 years Do You Dip or Chew Tobacco: No Second Hand Exposure: No Tobacco Cessation Education Requested by Patient: No Hx Alcohol Use: No Hx Substance Use: No Review of Systems Constitutional: + fatigue; no fever and no chills Respiratory: no cough, no dyspnea and no wheezing Cardiovascular: no chest pain, no radiating jaw, neck or arm pain and no claudication Gastrointestinal: + abdominal pain, + nausea, + vomiting and + change in bowel habits Physical Exam Constitutional: WD/WN, vitals as above Respiratory: normal respiratory effort, lungs clear to auscultation Cardiovascular: RRR, no murmur, no edema Gastrointestinal (Abdomen): Inspection/Auscultation: abdomen normal to inspection and normal bowel sounds Percussion/Palpation: abdomen soft; abdome n nontender, no guarding and abdomen not rigid Skin: no rashes, warm and dry Results & Data Vital Signs (Past 12 Hours) Vital Signs Temp Pulse Pulse Pulse Resp BP BP 10/17/18 07:00 36.8 C 69 18 107/63 10/17/18 05:46 48 L 18 113/70 10/17/18 05:22 36.7 C 18 10/17/18 05:08 74 18 10/17/18 04:00 10/17/18 03:38 36.7 C 63 18 118/71 BP Pulse Ox 10/17/18 07:00 100 10/17/18 05:46 98 10/17/18 05:22 125/78 100 10/17/18 05:08 118/78 98 10/17/18 04:00 98 10/17/18 03:38 99 Laboratory Results 10/17/18 10/17/18 10/17/18 Range/Units 07:04 03:50 03:50 WBC 7.38 (4.8-10.8) K/uL RBC 4.16 L (4.7-6.1) M/uL Hgb 9.2 L 10.5 L (14.0-18.0) g/dL Hct 29.4 L 32.9 L (42-52) % MCV 79.1 L (80-100) fL MCH 25.2 (25-34) pg MCHC 31.9 L (32-36) g/dL RDW Std Deviation 40.7 (36.4-46.3) fL RDW Coeff of Marjorie 14.3 (11.5-14.5) % Plt Count 352 (130-400) K/uL MPV 9.2 (7.4-10.4) fL Immature Gran % (Auto) 0.1 % Neut % (Auto) 65.4 % Lymph % (Auto) 24.9 % Ingham % (Auto) 6.8 % Eos % (Auto) 2.3 % Baso % (Auto) 0.5 % Immature Gran # (Auto) 0.01 (0.00-0.02) K/uL Neut # (Auto) 4.82 (1.4-6.5) K/uL Lymph # (Auto) 1.84 (1.2-3.4) K/uL Ingham # (Auto) 0.50 (0.11-0.59) K/uL Eos # (Auto) 0.17 (0-0.5) K/uL Baso # (Auto) 0.04 (0-0.2) K/uL Sodium 143 (136-145) mmol/L Potassium 3.4 L (3.5-5.1) mmol/L Chloride 110 H (98-107) mmol/L Carbon Dioxide 26 (21-32) mmol/L Anion Gap 7.0 (3-11) BUN 14 (7-18) mg/dl Creatinine 0.83 (0.6-1.4) mg/dl Est Cr Clr Drug Dosing 110.4 ml/min Est GFR ( Amer) 142.7 Est GFR (Non-Af Amer) 123.2 BUN/Creatinine Ratio 16.3 (10-20) Glucose 110 H (70-99) mg/dl Calcium 9.0 (8.5-10.1) mg/dl Magnesium 2.3 (1.8-2.4) mg/dl Total Bilirubin 0.2 (0.2-1) mg/dl AST 8 L (15-37) U/L ALT 16 (12-78) U/L Alkaline Phosphatase 57 (45-117) U/L Total Creatine Kinase 88 (39-308) U/L Total Protein 7.9 (6.4-8.2) gm/dl Albumin 4.0 (3.4-5.0) gm/dl Globulin 3.9 (2.5-4.0) gm/dl Albumin/Globulin Ratio 1.0 (0.9-2) Lipase 288 (73-393) U/L
[2018-10-17 11:55] LABS: Appearance Urine Clear (Clear); Bilirubin Urine Negative (Negative); Blood Urine Negative (Negative); Color Urine Dark Yellow; Glucose Urine UA Negative (Negative); Ketones Urine Negative (Negative); Leukocyte Esterase Urine Negative (Negative); Nitrite Urine Negative (Negative); Protein Urine Negative (Negative); Specific Gravity Urine 1.045 (1.000-1.030); Urobilinogen Urine Negative (Negative)
[2018-10-17 12:29] LABS: Amphetamines+Metham, Urine Neg (Neg); Barbiturates, Urine Neg (Neg); Benzodiazepine, Urine Neg (Neg); Cocaine, Urine Neg (Neg); MDMA (Ecstacy), Urine Neg (Neg); Methadone, Urine Neg (Neg); Opiate, Urine Pos (Neg); Phencyclidine, Urine Neg (Neg)
[2018-10-17 12:34] LABS: Hematocrit (blood only) 27.8 % (42-52); Hemoglobin 8.9 g/dL (14.0-18.0)
[2018-10-17] MEDS: NICOTINE 21 MG/24 HR TDSY TD SCH (12:48)
[2018-10-17 19:16] LABS: Hematocrit (blood only) 27.9 % (42-52); Hemoglobin 8.7 g/dL (14.0-18.0)
[2018-10-18] MEDS: SODIUM CHLORIDE 0.9% 1000ML 1,000 ML IV SCH ×3 (00:16→19:41)
[2018-10-18] MEDS: HYDROmorphone INJ 0.5 MG/0.5 ML SYR IV PRN ×7 (00:16→22:36)
[2018-10-18 00:26] LABS: Hematocrit (blood only) 28.6 % (42-52)
[2018-10-18] MEDS: PANTOprazole 40 MG in DEXTROSE 5% 100 ML IV SCH ×5 (01:28→22:04)
[2018-10-18 05:52] LABS: Basophils # (auto) 0.08 K/uL (0-0.2); Basophils % (auto) 1.4 %; Eosinophils # (auto) 0.32 K/uL (0-0.5); Eosinophils % (auto) 5.8 %; Hematocrit (blood only) 29.3 % (42-52); Hemoglobin 9.2 g/dL (14.0-18.0); Lymphocytes # (auto) 2.38 K/uL (1.2-3.4); Lymphocytes % (auto) 42.8 %; Mean Corpuscular Hgb Conc 31.4 g/dL (32-36); Mean Corpuscular Volume 79.4 fL (80-100); Mean Platelet Volume 9.5 fL (7.4-10.4); Monocytes # (auto) 0.57 K/uL (0.11-0.59); Monocytes % (auto) 10.3 %; Neutrophils # (auto) 2.21 K/uL (1.4-6.5); Neutrophils % (auto) 39.7 %; Platelet Count 284 K/uL (130-400); RDW Coefficient of Variation 14.1 % (11.5-14.5); RDW Standard Deviation 40.5 fL (36.4-46.3); Red Blood Count 3.69 M/uL (4.7-6.1); White Blood Count 5.56 K/uL (4.8-10.8)
[2018-10-18 06:48] LABS: BUN Creatinine Ratio 6.8 (10-20); Blood Urea Nitrogen 5 mg/dl (7-18); Calcium 8.5 mg/dl (8.5-10.1); Carbon Dioxide 26 mmol/L (21-32); Chloride 113 mmol/L (98-107); Creatinine Clr Calc Pharmacy 137.3 ml/min; Est GFR (African American) > 150.0; Est GFR (Non-African American) 129.8; Glucose 95 mg/dl (70-99); Magnesium 1.8 mg/dl (1.8-2.4); Sodium 142 mmol/L (136-145)
--- NOTE | 2018-10-18 07:47 | Hospitalist Progress Note ---
Date of Service October 18, 2018 Assessment & Plan (1) Duodenal ulcer: ASSESSMENT AND PLAN: This is a 22-year-old male who presents with abdominal pain, nausea, vomiting, possible hematemesis. 1. Nausea, vomiting, possible hematemesis. His last EGD a few days ago showed a duodenal ulcer. Continue Protonix drip until 10/19. NPO. GI recommendations noted 2. Abdominal pain in the left upper quadrant region. Pain control. Recent Ct scan showed colitis. 4. Hypokalemia. Resolved. 5. Tobacco abuse. Needs counseling. 6. Anemia . Stable 7. Deep venous thrombosis prophylaxis, SCDs. 8. Disposition: NE home 10/19 if improved ROS-No Headache, No Visual Changes, No Nausea, No Vomiting, No Fever, No Chills, No Neck Pain or Stiffness, No Chest Pain, No Palpitations, No SOB, No SOMERS, No Cough, No Sputum, No Wheezing, +Abdominal Pain, +Diarrhea, +Hematemesis, No Hemoptysis, No Unexpected Weight Loss, No Flank pain, No Melena, No Hematochezia, No Frequency, No Urgency, No Burning, No Hematuria, No Rashes, No Diaphoresis. Appetite is Normal Physical Exam Gen-AAO x 3, NAD, Afebrile Head-NCAT, EOMI, PERRLA, Anicteric Sclera, No Posterior Pharyngeal Erythema Neck-Supple, No JVD, No Thyromegaly, No Masses, No LAD, No Bruits Lungs-Clear to Auscultation Bilaterally, No Rales, No Rhonchi, No Wheezing, No Crepitus Chest-No S4, +S1, +S2, No S3, No Murmurs, No Rubs, No Gallops, No Ectopy Abdomen-Soft, Bowel Sounds Present, Sore, Non Distended, No Hepatomegaly, No Splenomegaly, No Palpable Masses, No Rebound, No Rigidity, No Guarding Musculoskeletal-Full Range of Motion Bilaterally, No CVAT Extremities-No Cyanosis, No Clubbing, No Edema Nuero-Cranial Nerves II-XII grossly intact, Motor WNL, DTRs WNL, Strength WNL, Non Focal Psych-Normal Mood Results & Data Vital Signs (Past 12 Hours) Vital Signs Temp Pulse Pulse Resp BP BP Pulse Ox 10/18/18 07:00 36.6 C 57 L 18 100/80 99 10/18/18 03:28 36.6 C 66 20 108/67 99 10/17/18 23:36 63 10/17/18 23:30 36.8 C 68 18 121/66 98 Labs checked
[2018-10-18] MEDS: SUCRALFATE 1 GM/10 ML UDC PO SCH ×4 (09:25→22:05)
[2018-10-18] MEDS: NICOTINE 21 MG/24 HR TDSY TD SCH (09:25)
--- NOTE | 2018-10-18 09:28 | Gastroenterology Progress Note ---
Date of Service October 18, 2018 Assessment & Plan (1) Intractable epigastric abdominal pain: 22 year old male with duodenal ulcer, admitted for worsening upper abdominal pain, hematemesis prior to arrival. Since admission he has vomited x 2 (all bilious) and denies further evidence of coffee ground appearing emesis or hematemesis. He notes chronic loose stool but denies any BM in the past 24 hours. No prior black/bloody stools. HGB is at baseline this AM (9.2) without elevation of BUN. He has normal liver function test and non-elevated lipase and is tolerating a clear liquid diet. - Can advance diet as tolerated - Can trial Bentyl PRN pain - Would continue IV PPI x 48 hours - Then please resume his OP regimen 40 mg PO BID for 6 weeks then reduce to 20 mg daily, Use sucralfate tablets 1 gram PO BID for 6 weeks. - No current indication for inpatient endoscopic evaluation - Will need OP EGD in about 3 months - Will need OP colonoscopy for chronic diarrhea GI to sign off. Thank you for allowing us to participate in the care of this patient. Please call with any acute changes, questions or concerns. Please see addendum below with additional recommendation from my supervising physician. Supervising Physician Co-Signing Physician Notes Late entry: I have seen and examined the patient on 10/18. Her note reflects our findings and plan. Subjective Pt was seen and evaluated, chart reviewed. Deniea any black/bloody stools. No emesis since admission. Tolerating clear liquid diet. Requesting advancing food. Abd pain is improving but sitll mildly present, epigastric region. Agreeable to OP EGD/Colon. No fever, chills, CP, SOB. c.diff negative Review of Systems Constitutional: no fever and no chills Respiratory: no cough and no chest congestion Cardiovascular: no chest pain, no radiating jaw, neck or arm pain and no dyspnea on exertion Gastrointestinal: + abdominal pain and + heartburn; no belching, no nausea and no dysphagia Physical Exam Constitutional: WD/WN, vitals as above Respiratory: normal respiratory effort, lungs clear to auscultation Cardiovascular: RRR, no murmur, no edema Gastrointestinal (Abdomen): Inspection/Auscultation: abdomen normal to inspection and normal bowel sounds Percussion/Palpation: abdomen soft; abdomen nontender, no guarding and abdomen not rigid Skin: no rashes, warm and dry Results & Data Vital Signs (Past 12 Hours) Vital Signs Temp Pulse Pulse Resp BP BP Pulse Ox 10/18/18 07:00 36.6 C 57 L 18 100/80 99 10/18/18 03:28 36.6 C 66 20 108/67 99 10/17/18 23:36 63 10/17/18 23:30 36.8 C 68 18 121/66 98
[2018-10-18] MEDS: ONDANSETRON INJ 2 MG/ML 2 ML VIAL IV PRN (12:21)
[2018-10-19] MEDS: HYDROmorphone INJ 0.5 MG/0.5 ML SYR IV PRN ×7 (02:06→22:14)
[2018-10-19] MEDS: PANTOprazole 40 MG in DEXTROSE 5% 100 ML IV SCH ×5 (02:06→22:14)
[2018-10-19] MEDS: SODIUM CHLORIDE 0.9% 1000ML 1,000 ML IV SCH ×2 (05:00→15:49)
[2018-10-19] MEDS: SUCRALFATE 1 GM/10 ML UDC PO SCH ×4 (08:06→22:14)
[2018-10-19] MEDS: NICOTINE 21 MG/24 HR TDSY TD SCH (08:07)
[2018-10-19 08:15] LABS: Hematocrit (blood only) 29.7 % (42-52); Hemoglobin 9.3 g/dL (14.0-18.0); Mean Corpuscular Hgb Conc 31.3 g/dL (32-36); Mean Corpuscular Volume 78.2 fL (80-100); Mean Platelet Volume 9.2 fL (7.4-10.4); Platelet Count 282 K/uL (130-400); RDW Coefficient of Variation 13.9 % (11.5-14.5); RDW Standard Deviation 39.5 fL (36.4-46.3); White Blood Count 5.42 K/uL (4.8-10.8)
[2018-10-19 08:45] LABS: BUN Creatinine Ratio 4.8 (10-20); Creatinine Clr Calc Pharmacy 129.5 ml/min; Est GFR (African American) 146.4; Est GFR (Non-African American) 126.3; Potassium 3.6 mmol/L (3.5-5.1)
[2018-10-19] MEDS: ONDANSETRON INJ 2 MG/ML 2 ML VIAL IV PRN (18:26)
--- NOTE | 2018-10-19 21:13 | Hospitalist Progress Note ---
Date of Service October 19, 2018 Assessment & Plan (1) Duodenal ulcer: Nausea and vomiting recurrent admission for abdominal pain associated with nausea and vomiting Was discharge on Cipro, flagyl, opiod and PPI S/P EGD done on 10/06 by Gastro showed non bleeding duodenal ulcer Worsening abdominal pain associated with nausea/vomiting and dark stools KUB showed unremarkable bowel gas pattern. No evidence for bowel obstruction. Repeat EGD done on 10/11 showed one non-obstructing non-bleeding cratered duodenal ulcer with no stigmata of bleeding was found in the duodenal bulb Continue pain control GI on board recommended: Protonix 40 mg twice daily for 6 weeks then 20 mg daily thereafter Carafate 1 g twice daily for 6 weeks Repeat upper endoscopy in 3 months Will need OP colonoscopy for chronic diarrhea Avoid NSAIDs use Diet advanced as tolerated Anemia Hgb 9.3 today stable Monitor CBC Tobacco abuse Counseling on tobacco abuse On Nicotine patch DVT px ambulates/SCDs CODE STATUS FULL CODE Disposition Plan to discharge tomorrow Subjective Pt was seen and examined Lying in bed with no distress He said that pain improved Tolerated diet today has been walking in the hallway Denies any chest pain, palpitation and SOB Physical Exam Physical Exam: General- No acute distress Head- atraumatic Eyes- PERRL, EOMI, ENT- oropharynx clear Neck- supple, no JVD Lungs- clear to auscultation Heart- regular rhythm; no murmur Abdomen- normal bowel sounds, soft, +tender with deep palpation Extremities- no calf tenderness Neuro- alert, oriented x 3; PERRL, EOMI; no facial palsy; no dysarthria Skin- warm & dry Results & Data Vital Signs (Past 12 Hours) Vital Signs Temp Pulse Resp BP BP Pulse Ox 10/19/18 19:52 36.9 C 69 18 122/66 98 10/19/18 15:30 36.8 C 68 18 129/81 98 10/19/18 12:02 36.8 C 69 18 116/66 93
[2018-10-20] MEDS: SODIUM CHLORIDE 0.9% 1000ML 1,000 ML IV SCH (02:03)
[2018-10-20] MEDS: PANTOprazole 40 MG in DEXTROSE 5% 100 ML IV SCH ×2 (02:03→07:12)
[2018-10-20] MEDS: HYDROmorphone INJ 0.5 MG/0.5 ML SYR IV PRN ×2 (02:28→07:13)
[2018-10-20 02:49] LABS: Hydrocodone Urine NEGATIVE NG/ML (CUTOFF=50); Hydromor Urine 181 NG/ML (CUTOFF=50); Morphine Urine NEGATIVE NG/ML (CUTOFF=50); Norhydrocodone Conf Ur NEGATIVE NG/ML (CUTOFF=50); Noroxycodone Urine NEGATIVE NG/ML (CUTOFF=50); Oxycodone Urine NEGATIVE NG/ML (CUTOFF=50)
[2018-10-20] MEDS: SUCRALFATE 1 GM/10 ML UDC PO SCH ×3 (07:13→16:04)
[2018-10-20] MEDS: NICOTINE 21 MG/24 HR TDSY TD SCH (07:13)
[2018-10-20] MEDS: OXYCODONE HCL IR 5 MG TAB (IMMEDIATE RELEASE) PO PRN ×2 (10:23→16:04)
--- NOTE | 2018-10-20 17:14 | Hospitalist Progress Note ---
Date of Service October 20, 2018 Assessment & Plan (1) Duodenal ulcer: Nausea and vomiting recurrent admission for abdominal pain associated with nausea and vomiting Was discharge on Cipro, flagyl, opiod and PPI S/P EGD done on 10/06 by Gastro showed non bleeding duodenal ulcer Worsening abdominal pain associated with nausea/vomiting and dark stools KUB showed unremarkable bowel gas pattern. No evidence for bowel obstruction. Repeat EGD done on 10/11 showed one non-obstructing non-bleeding cratered duodenal ulcer with no stigmata of bleeding was found in the duodenal bulb Continue pain control GI on board recommended: Protonix 40 mg twice daily for 6 weeks then 20 mg daily thereafter Carafate 1 g twice daily for 6 weeks Repeat upper endoscopy in 3 months Will need OP colonoscopy for chronic diarrhea Avoid NSAIDs use Tolerated diet well Anemia Hgb 9.3 stable Monitor CBC Tobacco abuse Counseling on tobacco abuse On Nicotine patch DVT px ambulates/SCDs CODE STATUS FULL CODE Disposition Plan to discharge today Follow up with your primary care provider Dr. Waters on 10/26 @ 3:15 PM Subjective Pt was seen and examined Lying in bed with no distress Pt said that he did not have any pain for most of the day Nurse said that later today he said that he had a random pain that lasted few seconds Pt tolerated diet and has been moving in the hallway Denies any chest pain, palpitation, dizziness and SOB Physical Exam Physical Exam: General- No acute distress Head- atraumatic Eyes- PERRL, EOMI, ENT- oropharynx clear Neck- supple, no JVD Lungs- clear to auscultation Heart- regular rhythm; no murmur Abdomen- normal bowel sounds, soft, Non tender Extremities- no calf tenderness Neuro- alert, oriented x 3; PERRL, EOMI; no facial palsy; no dysarthria Skin- warm & dry Results & Data Vital Signs (Past 12 Hours) Vital Signs Temp Pulse Pulse Resp BP BP Pulse Ox 10/20/18 16:00 36.8 C 69 18 107/57 L 98 10/20/18 15:56 81 10/20/18 12:08 36.6 C 63 18 131/80 100 10/20/18 07:38 74 10/20/18 07:23 36.4 C L 54 L 16 129/80 99
--- NOTE | 2018-10-21 09:04 | Discharge Summary ---
Date of Service October 20, 2018 Admission HPI Per Admitting Provider CHIEF COMPLAINT: Abdominal pain and few episodes of hematemesis. HISTORY OF PRESENT ILLNESS: This is a 22-year-old male with past medical history significant for chronic anemia, GI bleed. Recent endoscopy showed duodenal ulcer and also CT scan showed possible colitis, recently discharged home, comes back with left upper quadrant abdominal pain severe and nausea, vomiting. He said he has 2-3 episodes of small amount of blood in his vomitus. Denies any diarrhea, constipation or blood in the stools. Normal bladder movements. No bloody micturition. No hematuria. No headaches, no dizziness, no sore throat. Appetite is okay. No difficulty swallowing. No chest pain, no shortness of breath, no cough, no fever, no chills, no swelling of the legs, otherwise doing okay. Admission Exam Per Admitting Provider GENERAL: The patient is of moderate build, not in acute distress. VITAL SIGNS: Temperature 36.7, pulse 74, respiratory rate 18, blood pressure 118/70, oxygen 98% room air. HEENT: No pallor, no icterus. Pupils equal, round and reactive to light. NECK: No JVD. No neck masses, no carotid bruit. CARDIOVASCULAR: S1, S2 heard, regular rate and rhythm, no murmur, no gallop. RESPIRATORY SYSTEM: Normal AP diameter. No accessory muscle use. No wheezing, no crackles. ABDOMEN: Soft, bowel sounds present. Tenderness in the left upper quadrant region. No rigidity, no distention. CENTRAL NERVOUS SYSTEM: Cranial nerves II-XII grossly intact, nonfocal. EXTREMITIES: No edema, no erythema. Principal Diagnosis Duodenal ulcer Nausea and vomiting Abdominal pain Tobacco abuse Discharge Exam General- No acute distress Head- atraumatic Eyes- PERRL, EOMI, ENT- oropharynx clear Neck- supple, no JVD Lungs- clear to auscultation Heart- regular rhythm; no murmur Abdomen- normal bowel sounds, soft, Non tender Extremities- no calf tenderness Neuro- alert, oriented x 3; PERRL, EOMI; no facial palsy; no dysarthria Skin- warm & dry Discharge Data Allergies Allergy/AdvReac Type Severity Reaction Status Date / Time Penicillins Allergy Severe ANAPHYLAXIS Verified 10/17/18 04:37 promethazine Allergy Severe SHORTNESS Verified 10/17/18 04:37 OF BREATH tramadol Allergy Severe SHORTNESS Verified 10/17/18 04:37 OF BREATH diphenhydramine Allergy Unknown Itchiness Verified 10/17/18 04:37 and trouble breathing. NSAIDS (Non-Steroidal AdvReac Severe Gastrointestinal Unverified 10/17/18 04:37 Anti-Inflamma Upset lactose AdvReac Intermediate nausea Verified 10/17/18 04:37 ANTIINFLAMMATORIES AdvReac Mild migraines Uncoded 10/17/18 04:37 Consultations 10/17/18 04:16 ED Decision to Admit Stat 10/17/18 06:25 Consult Case Management - Discharge Planning Routine 10/17/18 08:00 Consult Gastroenterology Routine Procedures Performed PA CHEST RADIOGRAPH AND UPRIGHT AND SUPINE AP RADIOGRAPHS OF THE ABDOMEN CLINICAL HISTORY: Upper abdominal pain. COMPARISON STUDY: Chest radiograph July 09, [address] of the abdomen and pelvis October 12, 2018. FINDINGS: Lung volumes are normal. There is no pneumothorax or pleural effusion. There is no evidence for pulmonary edema or pneumonia. Cardiac size is normal. Mediastinal contours are normal. There is no free air. Right lower quadrant surgical clips are noted. The bowel gas pattern is normal. IMPRESSION: 1. No free air or evidence of bowel obstruction. 2. No acute cardiopulmonary findings. Electronically signed by: Iftikhar Pulliam M.D. 10/17/2018 7:16 AM Dictated: 10/17/1814 Transcribed: 10/17/1814 Hospital Course (1) Duodenal ulcer: Nausea and vomiting recurrent admission for abdominal pain associated with nausea and vomiting Was discharge on Cipro, flagyl, opiod and PPI S/P EGD done on 10/06 by Gastro showed non bleeding duodenal ulcer Worsening abdominal pain associated with nausea/vomiting and dark stools KUB showed unremarkable bowel gas pattern. No evidence for bowel obstruction. Repeat EGD done on 10/11 showed one non-obstructing non-bleeding cratered duodenal ulcer with no stigmata of bleeding was found in the duodenal bulb Continue pain control GI on board recommended: Protonix 40 mg twice daily for 6 weeks then 20 mg daily thereafter Carafate 1 g twice daily for 6 weeks Repeat upper endoscopy in 3 months Will need OP colonoscopy for chronic diarrhea Avoid NSAIDs use Tolerated diet well Anemia Hgb 9.3 stable Monitor CBC Tobacco abuse Counseling on tobacco abuse On Nicotine patch DVT px ambulates/SCDs CODE STATUS FULL CODE Disposition Plan to discharge today Follow up with your primary care provider Dr. Waters on 10/26 @ 3:15 PM Total Time Total Time Spent Total Time Spent (In Minutes): 35 minutes Total Time Includes: Examination of the Patient, Discharge Planning, Medication Reconciliation, Communication With Other Providers and Other Discharge Plan Discharge Items Patient Disposition: Home - Self-Care Reason For Visit: ABDOMINAL PAIN Discharge Diagnosis: Duodenal ulcer Nausea and vomiting Abdominal pain Tobacco abuse Anemia Condition: Fair Discharge Goals: Decrease discomfort, Improve disease control, Increase independence and Improve nutritional status Activity: Resume your previous activity Non-emergency contact: Primary Care Provider Call non-emergency contact if: you have any medication questions Follow-up/Referrals: Martin Waters MD [Primary Care Provider] - Diet: Regular Addtl Provider Instructions: Follow up with your primary care provider Dr. Waters on 10/26 @ 3:15 PM Follow up with Gastroenterology to repeat EGD in 3 months Your physician or gastroenterology will arrange for outpatient colonoscopy counseling on smoking cessation You have duodenal ulcer please avoid any medication that can upset your stomach such as caffeine, spicy food, tomatoes, alcohol, citrus, mint, ... Avoid any NSAIDs (Such as motrin, aleve, Naproxen, Advil, Ibuprofen, ...) Prescriptions: New acetaminophen [Mapap (acetaminophen)] 325 mg Tablet 650 mg PO Q6H PRN (Reason: pain) Qty: 20 RF: 0 Continued pantoprazole 40 mg tablet,delayed release (DR/EC) 40 mg PO BID Qty: 60 RF: 1 oxycodone 5 mg Tablet 5 mg PO Q4H PRN (Reason: severe pain) Qty: 10 RF: 0 sucralfate 100 mg/mL Suspension 10 ml PO QID Qty: 400 RF: 0 prochlorperazine maleate [Compazine] 10 mg tablet 10 mg PO Q6H PRN (Reason: nausea and vomiting) Qty: 60 RF: 0 Stand-Alone Forms: [facility] Discharge Orders: Discharge Order (Routine); Ordered 10/20/18 Ordered By: Farshad Loredo Admission Data Admit Date/Time: 10/17/18 05:07 Attending Provider: Farshad Loredo Admit Provider: Stoney Tatum Primary Care Provider: Martin Waters Other Providers: Manuela Beyer,Genci ; Nayeli Ryan ; Ceasar Maradiaga ; Karyn Olguin ; Trae Santoyo ; Aspen Kee ; Herson Mojica ; Jeevan Ochoa ; Ruth Brooks ; Adela Pena ; Halie Matos ; Quin Mar ; Wilda Maciel ; Stoney Tatum ; Rian Ramos Service: Telemetry Medical Other Interventions: Discharge Summary Assessment (RN) Last Done: 10/20/18 18:37 DC Date/Time DO NOT enter until pt leaves facility: 10/20/18 19:35
--- NOTE | 2018-10-22 08:22 | Communication Note ---
Date of Service: October 21, 2018 Received a call from patient that he only had 2 tablets left of narcotic and his appointment with his PCP Dr. Waters on 10/26. He would like to get a script for narcotic. I told patient that before i discharged him yesterday that he said that his pain was under control. I sent him a prescription for tylenol 650mg. He said that tylenol does not work. I reviewed the [place] prescription drug monitoring. I told him that I gave him a script for oxycodone 5 mg on 10/07 for 10 tabs and on 10/12 Dr. Ramos gave him a script for oxycodone 5 mg for 30 tabs. I told pt that he has been in the hospital for about 11 days total in the last 2 weeks and he should have more than 2 tabs left. I told him that if the pain is worsening to seek medical attention or come back to the ER for eval. Facundo MD
== END 2018-10-20 19:35 | disposition home or self-care (01) | DRG 384 ==
LOC: ED 03:34 → SUATTDRO 05:07 → 2W 05:07 → 2N 10-19 09:43

== ENCOUNTER 2019-03-07 21:40 | Observation (INO) ==
[2019-03-07] MEDS ORDERED: SODIUM CHLORIDE 0.9% 1000ML 1,000 ML IV SCH (22:30)
[2019-03-07 22:35] LABS: Basophils # (auto) 0.02 K/uL (0-0.2); Basophils % (auto) 0.3 %; Eosinophils # (auto) 0.04 K/uL (0-0.5); Eosinophils % (auto) 0.5 %; Hematocrit (blood only) 35.5 % (42-52); Hemoglobin 11.8 g/dL (14.0-18.0); Immature Granulocytes # (auto) 0.01 K/uL (0.00-0.02); Immature Granulocytes % (auto) 0.1 %; Lymphocytes # (auto) 1.65 K/uL (1.2-3.4); Lymphocytes % (auto) 20.7 %; Mean Corpuscular Hgb Conc 33.2 g/dL (32-36); Mean Corpuscular Volume 78.4 fL (80-100); Mean Platelet Volume 8.8 fL (7.4-10.4); Monocytes # (auto) 0.54 K/uL (0.11-0.59); Monocytes % (auto) 6.8 %; Neutrophils # (auto) 5.71 K/uL (1.4-6.5); Neutrophils % (auto) 71.6 %; Platelet Count 287 K/uL (130-400); RDW Coefficient of Variation 14.4 % (11.5-14.5); RDW Standard Deviation 40.9 fL (36.4-46.3); Red Blood Count 4.53 M/uL (4.7-6.1); White Blood Count 7.97 K/uL (4.8-10.8)
[2019-03-07] MEDS ORDERED: ONDANSETRON INJ 2 MG/ML 2 ML VIAL IV STA (22:48)
[2019-03-07] MEDS ORDERED: MoRPHine SULFATE 4 MG/ML 1 ML CARP\\VIAL IV STA ×2 (22:48→23:38)
[2019-03-07 22:51] LABS: iSTAT Hemoglobin 12.2 g/dl (14.0-18.0); iSTAT Ionized Calcium 1.24 mmol/l (1.12-1.32); iSTAT Potassium 3.2 mEq/L (3.3-5.0)
[2019-03-07 22:58] LABS: Albumin Level 4.5 gm/dl (3.4-5.0); Calcium 9.4 mg/dl (8.5-10.1); Creatinine Clr Calc Pharmacy 97.8 ml/min; Est GFR (African American) 116.5; Est GFR (Non-African American) 100.5; Potassium 3.1 mmol/L (3.5-5.1)
[2019-03-07 23:01] LABS: Albumin Globulin Ratio 1.3 (0.9-2); Bilirubin,Total 0.3 mg/dl (0.2-1); Globulin 3.6 gm/dl (2.5-4.0); Total Protein 8.1 gm/dl (6.4-8.2)
[2019-03-07] MEDS ORDERED: IOVERSOL 100ml IV PRN (23:02)
[2019-03-07 23:51] LABS: Appearance Urine Clear (Clear); Bilirubin Urine Negative (Negative); Blood Urine Negative (Negative); Color Urine Yellow; Glucose Urine UA Negative (Negative); Ketones Urine Negative (Negative); Leukocyte Esterase Urine Negative (Negative); Nitrite Urine Negative (Negative); Protein Urine Negative (Negative); Specific Gravity Urine 1.022 (1.000-1.030); Urobilinogen Urine Negative (Negative); pH Urine 6.5 (4.5-7.5)
[2019-03-08] MEDS ORDERED: PANTOprazole 80 MG in DEXTROSE 5% 100 ML IV ONE (00:45)
[2019-03-08] MEDS ORDERED: ONDANSETRON INJ 2 MG/ML 2 ML VIAL IV STA (00:49)
[2019-03-08] MEDS ORDERED: MoRPHine SULFATE 4 MG/ML 1 ML CARP\\VIAL IV STA (00:49)
[2019-03-08] MEDS ORDERED: POTASSIUM CHLORIDE 20 MEQ TABCR PO STA (01:04)
--- NOTE | 2019-03-08 01:11 | Emergency Department Note ---
Entered by Lacie Leal acting as a scribe for Sage Almonte MD History of Present Illness General Chief complaint: Abdominal Pain Stated complaint: ABD PAIN BLOOD IN THROW UP Time Seen by Provider: 03/07/19 22:03 Source: patient History of Present Illness Onset (ago): day(s) 6 Location: abdomen Severity: similar to prior episodes Pain Consistency: + constant Maximum Pain Intensity: 8 Quality: + other (Abdominal pain) Relieved By: not by medication (Tylenol, Ibuprofen) Associated symptoms: + nausea/vomiting and + other (Dark red blood in stool, hot flash) The patient is a 23 year old male presenting to the Emergency Department complaining of constant abdominal pain starting 6 days ago. The patient reports that he has left upper quadrant abdominal pain. He states that he is nauseous, vomiting and experiencing hot flashes. He explains that when he has a bowel movement he has noticed dark red blood in his stool. He notes that he came into the ED 2 days ago for these same symptoms. He adds that he has experienced these symptoms before as he has diverticulitis and that these symptoms are consistent with that. The patient reports that he has been admitted for his diverticulitis 5 times before. He states that he has taken Tylenol and Ibuprofen for his stomach pain, neither of which have helped. He explains that he has an appointment with his PCP in 2 days but that he cannot wait that long because of his constant abdominal pain. He notes that he intermittently takes Cipro. He adds that he has had abdominal surgeries before. Home Medications Home Medications Medication Instructions Recorded Confirmed Type ciprofloxacin HCl 500 mg PO BID 03/07/19 03/07/19 History sucralfate [Carafate] 10 ml PO ACHS 03/07/19 03/07/19 History Allergies Allergy/AdvReac Type Severity Reaction Status Date / Time Penicillins Allergy Severe ANAPHYLAXIS Verified 03/07/19 22:47 promethazine Allergy Severe SHORTNESS Verified 03/07/19 22:47 OF BREATH tramadol Allergy Severe SHORTNESS Verified 03/07/19 22:47 OF BREATH diphenhydramine Allergy Unknown Itchiness Verified 03/04/19 03:54 and trouble breathing. 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 and A total of 10 systems reviewed and were otherwise negative Physical Exam Vital Signs Vital Signs - 24 hr 03/07/19 21:46 03/07/19 23:07 03/07/19 23:12 Temperature 37.1 C Temperature Source Oral Sepsis Recent Fever Within 48 Hours No Sepsis New/Unexplained Change in Mental Status No Sepsis Action Taken by Nursing No Action Required Pulse Rate 88 Pulse Rate [Right Finger] 76 Pulse Rhythm [Right Finger] Regular Respiratory Rate 18 18 Respiratory Effort / Characteristics Non-Labored Respiratory Depth Normal Blood Pressure 117/73 Blood Pressure [Right Arm] 132/69 Blood Pressure Mean 87 Blood Pressure Mean [Right Arm] 90 Blood Pressure Position Sitting Blood Pressure Position [Right Arm] Lying Pulse Oximetry 98 98 97 Oxygen Delivery Method Room Air Room Air Room Air 03/08/19 00:46 Temperature Temperature Source Sepsis Recent Fever Within 48 Hours Sepsis New/Unexplained Change in Mental Status Sepsis Action Taken by Nursing Pulse Rate Pulse Rate [Right Finger] 73 Pulse Rhythm [Right Finger] Regular Respiratory Rate 20 Respiratory Effort / Characteristics Non-Labored Respiratory Depth Normal Blood Pressure Blood Pressure [Right Arm] 133/66 Blood Pressure Mean Blood Pressure Mean [Right Arm] 88 Blood Pressure Position Blood Pressure Position [Right Arm] Lying Pulse Oximetry 96 Oxygen Delivery Method Room Air General: Non-ill appearing slender male in no acute distress. HEENT: Normal cephalic atraumatic. Pupils are equal round and reactive to light. Extraocular movements are intact. Oropharynx is pink with moist mucous membranes. No swelling of the mouth lips or tongue. Neck: Supple with a midline trachea. No meningeal signs or stiffness, no JVD or bruits. No Stridor. Chest: Clear to auscultation bilaterally. No wheezes or rhonchi. No increased work of breathing. Heart: regular rate and rhythm. Abdomen: Tender to palpation in LUQ. Soft, nondistended without rebound guarding or rigidity. Rectal: Brown stool which was guaiac positive. Extremities: No cyanosis clubbing or edema. No calf tenderness or asymmetry Spine/Back. Non tender to palpation. No CVA tenderness Skin: Good turgor without rashes. Neurologic exam: Cranial nerves two through 12 are intact. Motor and sensation are intact and symmetrical throughout. Course 2205: The patient was evaluated in room C10, and a complete history and physical examination were performed. 2328: I reevaluated the patient at this time who is complaining of more pain. I will order him pain medication. 0016: I reevaluated the patient at this time. I performed a rectal examination at this time. See physical exam for details. 0032: I spoke with the pharmacist Marvel, who will send up Protonix IV bolus for the patient. 0055: I discussed the patient's case with Dr. Aristeo Braun hospitalist. He will evaluate the patient for further management. Administered Medications Ioversol (Optiray 320 100ml) 100 ml IV ONCE PRN PRN Reason: Interaction Checking Stop: 03/11/19 23:01 Last Admin: 03/07/19 23:02 Dose: 92 ml Documented by: [id number] Discontinued Medications Sodium Chloride (Nss 1000ml) 1,000 mls @ 999 mls/hr IV .[id number] JULI Stop: 03/07/19 23:30 Last Infusion: 03/07/19 23:34 Dose: 0 mls/hr Documented by: [id number] Admin: 03/07/19 22:34 Dose: 999 mls/hr Documented by: [id number] Pantoprazole Sodium 80 mg/ (Dextrose) 120 mls @ 480 mls/hr IV ONE ONE Stop: 03/08/19 00:59 Last Infusion: 03/08/19 01:04 Dose: 0 mls/hr Documented by: [id number] Admin: 03/08/19 00:49 Dose: 480 mls/hr Documented by: [id number] Morphine Sulfate (Morphine Sulfate) 4 mg IV NOW STA Stop: 03/07/19 22:49 Last Admin: 03/07/19 22:54 Dose: 4 mg Documented by: [id number] Morphine Sulfate (Morphine Sulfate) 4 mg IV NOW STA Stop: 03/07/19 23:39 Last Admin: 03/07/19 23:42 Dose: 4 mg Documented by: [id number] Morphine Sulfate (Morphine Sulfate) 4 mg IV NOW STA Stop: 03/08/19 00:50 Last Admin: 03/08/19 00:59 Dose: 4 mg Documented by: [id number] Ondansetron HCl (Zofran) 4 mg IV NOW STA Stop: 03/07/19 22:49 Last Admin: 03/07/19 22:54 Dose: 4 mg Documented by: [id number] Ondansetron HCl (Zofran) 4 mg IV NOW STA Stop: 03/08/19 00:50 Last Admin: 03/08/19 00:59 Dose: 4 mg Documented by: [id number] Medical Decision Making Differential Diagnosis Differentials include diverticulitis, abscess, colitis, peptic ulcer disease, anemia and GI bleed amongst others. Medical Records Attestation: I reviewed the patient's medical records. Home Medications Current Medication List: was personally reviewed by me Laboratory Data Attestation: I reviewed the patient's lab results. Result diagrams: 03/07/19 22:28 03/07/19 22:28 Lab Results 03/07/19 03/07/19 03/07/19 Range/Units 22:28 22:28 22:28 WBC 7.97 (4.8-10.8) K/uL RBC 4.53 L (4.7-6.1) M/uL Hgb 11.8 L (14.0-18.0) g/dL POC Hgb (14.0-18.0) g/dl Hct 35.5 L (42-52) % POC Hct (42-52) % MCV 78.4 L (80-100) fL MCH 26.0 (25-34) pg MCHC 33.2 (32-36) g/dL RDW Std Deviation 40.9 (36.4-46.3) fL RDW Coeff of Marjorie 14.4 (11.5-14.5) % Plt Count 287 (130-400) K/uL MPV 8.8 (7.4-10.4) fL Immature Gran % (Auto) 0.1 % Neut % (Auto) 71.6 % Lymph % (Auto) 20.7 % [place] % (Auto) 6.8 % Eos % (Auto) 0.5 % Baso % (Auto) 0.3 % Immature Gran # (Auto) 0.01 (0.00-0.02) K/uL Neut # (Auto) 5.71 (1.4-6.5) K/uL Lymph # (Auto) 1.65 (1.2-3.4) K/uL [place] # (Auto) 0.54 (0.11-0.59) K/uL Eos # (Auto) 0.04 (0-0.5) K/uL Baso # (Auto) 0.02 (0-0.2) K/uL POC Sodium (135-144) mEq/L Sodium 138 (136-145) mmol/L POC Potassium (3.3-5.0) mEq/L Potassium 3.1 L (3.5-5.1) mmol/L POC Chloride (101-112) mEq/L Chloride 108 H (98-107) mmol/L Carbon Dioxide 24 (21-32) mmol/L POC Total CO2 (24-31) mEq/l Anion Gap 6.0 (3-11) POC Anion Gap (16-25) mmol/L POC BUN (7-18) mg/dl BUN 12 (7-18) mg/dl Creatinine 1.03 (0.6-1.4) mg/dl POC Creatinine (0.6-1.3) mg/dl Est Cr Clr Drug Dosing 97.8 ml/min Est GFR ( Amer) 116.5 Est GFR (Non-Af Amer) 100.5 BUN/Creatinine Ratio 12.0 (10-20) Glucose 108 H (70-99) mg/dl POC Glucose (other) (70-99) mg/dl Calcium 9.4 (8.5-10.1) mg/dl POC Ioniz Calcium Shilpa (1.12-1.32) mmol/l Total Bilirubin 0.3 (0.2-1) mg/dl AST 8 L (15-37) U/L ALT 19 (12-78) U/L Alkaline Phosphatase 60 (45-117) U/L Total Protein 8.1 (6.4-8.2) gm/dl Albumin 4.5 (3.4-5.0) gm/dl Globulin 3.6 (2.5-4.0) gm/dl Albumin/Globulin Ratio 1.3 (0.9-2) Lipase 258 (73-393) U/L Urine Color Urine Appearance (Clear) Urine pH (4.5-7.5) Ur Specific [place] (1.000-1.030) Urine Protein (Negative) Urine Glucose (UA) (Negative) Urine Ketones (Negative) Urine Blood (Negative) Urine Nitrite (Negative) Urine Bilirubin (Negative) Urine Urobilinogen (Negative) Ur Leukocyte Esterase (Negative) Blood Type B Negative Antibody Screen NEGATIVE 03/07/19 03/07/19 Range/Units 22:38 23:25 WBC (4.8-10.8) K/uL RBC (4.7-6.1) M/uL Hgb (14.0-18.0) g/dL POC Hgb 12.2 L (14.0-18.0) g/dl Hct (42-52) % POC Hct 36 L (42-52) % MCV (80-100) fL MCH (25-34) pg MCHC (32-36) g/dL RDW Std Deviation (36.4-46.3) fL RDW Coeff of Marjorie (11.5-14.5) % Plt Count (130-400) K/uL MPV (7.4-10.4) fL Immature Gran % (Auto) % Neut % (Auto) % Lymph % (Auto) % [place] % (Auto) % Eos % (Auto) % Baso % (Auto) % Immature Gran # (Auto) (0.00-0.02) K/uL Neut # (Auto) (1.4-6.5) K/uL Lymph # (Auto) (1.2-3.4) K/uL [place] # (Auto) (0.11-0.59) K/uL Eos # (Auto) (0-0.5) K/uL Baso # (Auto) (0-0.2) K/uL POC Sodium 140 (135-144) mEq/L Sodium (136-145) mmol/L POC Potassium 3.2 L (3.3-5.0) mEq/L Potassium (3.5-5.1) mmol/L POC Chloride 106 (101-112) mEq/L Chloride (98-107) mmol/L Carbon Dioxide (21-32) mmol/L POC Total CO2 22 L (24-31) mEq/l Anion Gap (3-11) POC Anion Gap 16.0 (16-25) mmol/L POC BUN 11 (7-18) mg/dl BUN (7-18) mg/dl Creatinine (0.6-1.4) mg/dl POC Creatinine 1.0 (0.6-1.3) mg/dl Est Cr Clr Drug Dosing ml/min Est GFR ( Amer) Est GFR (Non-Af Amer) BUN/Creatinine Ratio (10-20) Glucose (70-99) mg/dl POC Glucose (other) 110 H (70-99) mg/dl Calcium (8.5-10.1) mg/dl POC Ioniz Calcium [place]il[place] 1.24 (1.12-1.32) mmol/l Total Bilirubin (0.2-1) mg/dl AST (15-37) U/L ALT (12-78) U/L Alkaline Phosphatase (45-117) U/L Total Protein (6.4-8.2) gm/dl Albumin (3.4-5.0) gm/dl Globulin (2.5-4.0) gm/dl Albumin/Globulin Ratio (0.9-2) Lipase (73-393) U/L Urine Color Yellow Urine Appearance Clear (Clear) Urine pH 6.5 (4.5-7.5) Ur Specific [place] 1.022 (1.000-1.030) Urine Protein Negative (Negative) Urine Glucose (UA) Negative (Negative) Urine Ketones Negative (Negative) Urine Blood Negative (Negative) Urine Nitrite Negative (Negative) Urine Bilirubin Negative (Negative) Urine Urobilinogen Negative (Negative) Ur Leukocyte Esterase Negative (Negative) Blood Type Antibody Screen Imaging Data Radiologist's Impression: Radiology results as stated below per my review and the radiologist's interpretation: CT ABDOMEN & PELVIS With Contrast: Unremarkable appendix. No evidence of colitis or bowel obstruction. No radiodense gallstones or pancreatitis. Distended bladder. Small amount of fluid in the pelvis. Surgical clips in the right side of the pelvis. Radiologist: Miah Alexander M.D. Study ready at 23:08 and initial results transmitted at 00:08 Blood Pressure Blood Pressure Findings: Elevated blood pressure Blood Pressure Disposition: further management by hospitalist MDM Narrative This patient comes in as described above. He was placed in room C10. He has a history of peptic ulcer disease and diverticulitis and has been having abdominal pain in the epigastric/left upper abdomen for several days now. He says he had dark red blood in stool at times. He has been vomiting but without blood or coffee grounds. He is tender on exam but has no peritonitis. IV access established and he was hydrated with IV normal saline bolus. His hemoglobin is stable at 11.8 it was 11.3 the other day. He is normotensive. He has no significant electrolyte or metabolic abnormalities. Given his continuation of symptoms, I did do a CAT scan with IV contrast and there is no obstructive process or free air or mass. The patient continued have pain and he received multiple doses of IV morphine and IV Zofran for pain and nausea management. I did a rectal exam and the stool was brown however it was guaiac positive. I reviewed his old records and he does have a history on his last endoscopy which shows a duodenal ulcer. I am concerned that he could have bleeding from that given the fact that he has epigastric pain as well. I did talk to the [facility] t and they are going to send a Protonix 80 mg IV as well. I do think the patient needs to be admitted/observed. I have consulted Dr. Dee who will see the patient in the ER for these measures. Impression & Plan Epigastric pain, GI bleed, Peptic ulcer disease, Vomiting Discharge Plan Visit Data Chief Complaint: Abdominal Pain Stated Complaint: ABD PAIN BLOOD IN THROW UP ED Provider: Sage Almonte Discharge Problem: Epigastric pain, GI bleed, Peptic ulcer disease, Vomiting Patient Disposition: Being Evaluated by Hospitalist Forms Stand Alone Forms: My [facility], Important Visit Information Prescriptions Prescriptions: No Action sucralfate [Carafate] 100 mg/mL suspension 10 ml PO ACHS RF: 0 ciprofloxacin HCl 500 mg Tablet 500 mg PO BID RF: 0 Referrals Referrals: Martin Waters MD [Primary Care Provider] - Discharge Problem: GI bleed Qualifiers: GI bleed type/associated pathology: unspecified gastrointestinal hemorrhage type Qualified Code(s): K92.2 - Gastrointestinal hemorrhage, unspecified Vomiting Qualifiers: Vomiting type: unspecified Vomiting Intractability: unspecified Nausea presence: unspecified Qualified Code(s): R11.10 - Vomiting, unspecified The scribe's documentation has been prepared under my direction and personally reviewed by me in its entirety. I confirm that the note above accurately reflects all work, treatment, procedures, and medical decision making performed by me.
--- NOTE | 2019-03-08 01:42 | History & Physical Report ---
Date of Service March 08, 2019 Assessment & Plan (1) Abdominal pain: Worsening of chronic left-sided abdominal pain With dark loose stools, ? LGIB rule out C. difficile hx duodenal ulcer as per records chronic anemia, hemoglobin at baseline Hypokalemia secondary to GI illness ongoing tobacco abuse OBS GMF Stool C. difficile Judicious narcotic use GI consult RE worsening abdominal pain, GI bleed N.p.o. for now in anticipation for any procedure Replace potassium Trend H&H, transfuse PRBC if hemoglobin less than 7 and/or for symptomatic anemia Nicotine patch PRN DVT prophylaxis. SCDs RE GI bleed Full code History of Present Illness Primary Care Provider: Martin Waters MD History obtained from patient and records. Medical history significant for duodenal ulcer, hx colitis, chronic anemia (baseline hemoglobin of 9-10), ongoing tobacco abuse. Recent confinement October 2018 for hematemesis secondary to duodenal ulcer. Patient discharged on Protonix and Carafate course. Repeat EGD contemplated by GI around December 2018. As per patient, he has had chronic left upper quadrant pain for months now since ulcer issues have started. Pain gets worse from time to time. Recent ER visit 3 days ago for worsening left upper quadrant pain without bleeding symptoms. Patient discharged from the ER. Upon return home patient noted worsening abdominal pain with nonbloody emesis as per patient account. Loose stools dark red. No fever, no chills. Patient denies chest pain, S OB. Patient admits to taking OTC NSAIDs for discomfort. Patient given IV Protonix bolus at the ER. 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 NSAIDS (Non-Steroidal AdvReac Severe Gastrointestinal Unverified 03/07/19 22:47 Anti-Inflamma Upset lactose AdvReac Intermediate nausea Verified 03/07/19 22:47 Home Medications Home Medications Medication Instructions Recorded Confirmed Type ciprofloxacin HCl 500 mg PO BID 03/07/19 03/07/19 History sucralfate [Carafate] 10 ml PO ACHS 03/07/19 03/07/19 History Past Med/Surg History Medical History GERD (gastroesophageal reflux disease) (Chronic) H/O: duodenal ulcer Surgical History H/O esophagogastroduodenoscopy 10/06/18 MAC Hx of hernia repair Family History Other Diabetes Gallbladder disease Heart disease Hypertension Lung disease Seizure Social History Preferred Language: Maori Communication Ability: Effective 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 Beliefs That Will Affect Care: None marital status: Single Current Living Situation: Alone current occupational status: employed Other Information That Helps Us Care for You: No Feels Safe at Home: Yes Safety Concerns: Feels Safe At This Time Smoking Status: Current every day smoker Tobacco Type: cigarettes ; Cigarettes Per Day: 6 ; Do You Dip or Chew Tobacco: No ; Second Hand Exposure: No ; Hx Alcohol Use: No Hx Substance Use: No Review of Systems Review of Systems: GENERAL: Comfortable, no respiratory distress SKIN: Normal color, warm HEENT: [place] palpebral conjunctivae, no ptosis, dry buccal mucosa NECK : Supple, no tenderness CHEST : CTA, no tenderness HEART : RRR, no obvious murmurs ABDOMEN: Some distention, nontender EXTREMITIES : No LE swelling/tenderness, no other conspicuous deformities noted NEUROLOGIC : Coherent, no facial asymmetry, no other gross focality Physical Exam 2 Physical Exam: GENERAL: uncomfortable, slightly anxious, no respiratory distress SKIN: Pallor , warm HEENT: Pale palpebral conjunctivae, no ptosis, dry buccal mucosa NECK : Supple, no tenderness CHEST : Decreased breath sounds , no tenderness HEART : RRR, no obvious murmurs ABDOMEN: Some distention, left-sided abdominal tenderness EXTREMITIES : No LE swelling/tenderness, no other conspicuous deformities noted NEUROLOGIC : Coherent, no facial asymmetry, no other gross focality Results & Data Vital Signs (Past 12 Hours) Vital Signs Temp Pulse Pulse Resp BP BP Pulse Ox 03/08/19 00:46 73 20 133/66 96 03/07/19 23:12 97 03/07/19 23:07 76 18 132/69 98 03/07/19 21:46 37.1 C 88 18 117/73 98 Laboratory Results Laboratory Results WBC 7.97 K/uL (4.8-10.8) 03/07/19 22: RBC 4.53 M/uL (4.7-6.1) L 03/07/19 22:28 Hgb 11.8 g/dL (14.0-18.0) L 03/07/19 22: POC Hgb 12.2 g/dl (14.0-18.0) L 03/07/19 22:38 Hct 35.5 % (42-52) L 03/07/19: POC Hct 36 % (42-52) L 03/07/19: MCV 78.4 fL (80-100) L 03/07/19 22: MCH 26.0 pg (25-34) 03/07/19: MCHC 33.2 g/dL (32-36) 03/07/19: RDW Std Deviation 40.9 fL (36.4-46.3) 03/07/19: RDW Coeff of Marjorie 14.4 % (11.5-14.5) 03/07/19: Plt Count 287 K/uL (130-400) 03/07/19 22: MPV 8.8 fL (7.4-10.4) 03/07/19: Immature Gran % (Auto) 0.1 % 03/07/19: Neut % (Auto) 71.6 % 03/07/19: Lymph % (Auto) 20.7 % 03/07/19: [place] % (Auto) 6.8 % 03/07/19: Eos % (Auto) 0.5 % 03/07/19: Baso % (Auto) 0.3 % 03/07/19: Immature Gran # (Auto) 0.01 K/uL (0.00-0.02) 03/07/19: Neut # (Auto) 5.71 K/uL (1.4-6.5) 03/07/19 22: Lymph # (Auto) 1.65 K/uL (1.2-3.4) 03/07/19: [place] # (Auto) 0.54 K/uL (0.11-0.59) 03/07/19 22: Eos # (Auto) 0.04 K/uL (0-0.5) 03/07/19 22: Baso # (Auto) 0.02 K/uL (0-0.2) 03/07/19: POC Sodium 140 mEq/L (135-144) 03/07/19: Sodium 138 mmol/L (136-145) 03/07/19: POC Potassium 3.2 mEq/L (3.3-5.0) L 03/07/19: Potassium 3.1 mmol/L (3.5-5.1) L 03/07/19: POC Chloride 106 mEq/L (101-112) 03/07/19: Chloride 108 mmol/L (98-107) H 03/07/19: Carbon Dioxide 24 mmol/L (21-32) 03/07/19: POC Total CO2 22 mEq/l (24-31) L 03/07/19: Anion Gap 6.0 (3-11) 03/07/19: POC Anion Gap 16.0 mmol/L (16-25) 03/07/19 22: POC BUN 11 mg/dl (7-18) 03/07/19: BUN 12 mg/dl (7-18) 03/07/19: Creatinine 1.03 mg/dl (0.6-1.4) 03/07/19: POC Creatinine 1.0 mg/dl (0.6-1.3) 03/07/19 22: Est Cr Clr Drug Dosing 97.8 ml/min 03/07/19: Est GFR ( Amer) 116.5 03/07/19: Est GFR (Non-Af Amer) 100.5 03/07/19 22: BUN/Creatinine Ratio 12.0 (10-20) 03/07/19: Glucose 108 mg/dl (70-99) H 03/07/19 22: POC Glucose (other) 110 mg/dl (70-99) H 03/07/19 22:38 Calcium 9.4 mg/dl (8.5-10.1) 03/07/19: POC Ioniz Calcium Shilpa 1.24 mmol/l (1.12-1.32) 03/07/19 22: Magnesium 2.0 mg/dl (1.8-2.4) 03/07/19: Total Bilirubin 0.3 mg/dl (0.2-1) 03/07/19 22: AST 8 U/L (15-37) L 03/07/19: ALT 19 U/L (12-78) 03/07/19: Alkaline Phosphatase 60 U/L (45-117) 03/07/19 22: Total Protein 8.1 gm/dl (6.4-8.2) 03/07/19: Albumin 4.5 gm/dl (3.4-5.0) 03/07/19: Globulin 3.6 gm/dl (2.5-4.0) 03/07/19: Albumin/Globulin Ratio 1.3 (0.9-2) 03/07/19: Lipase 258 U/L (73-393) 03/07/19 22: Urine Color Yellow 03/07/19 23: Urine Appearance Clear (Clear) 03/07/19 23: Urine pH 6.5 (4.5-7.5) 03/07/19 23: Ur Specific [place] 1.022 (1.000-1.030) 03/07/19 23: Urine Protein Negative (Negative) 03/07/19 23: Urine Glucose (UA) Negative (Negative) 03/07/19 23: Urine Ketones Negative (Negative) 03/07/19: Urine Blood Negative (Negative) 03/07/19: Urine Nitrite Negative (Negative) 03/07/19 23: Urine Bilirubin Negative (Negative) 03/07/19: Urine Urobilinogen Negative (Negative) 03/07/19: Ur Leukocyte Esterase Negative (Negative) 03/07/19: Blood Type B Negative 10/22/19 22:28 Antibody Screen NEGATIVE 03/07/19 22:[address] abdomen pelvis initial read: Unremarkable appendix. No evidence of colitis. Distended urinary bladder. Surgical clips right side of the pelvis (1) Abdominal pain Abdominal location: left upper quadrant Qualified Code(s): R10.12 - Left upper quadrant pain
[2019-03-08] MEDS ORDERED: OXYCODONE HCL IR 5 MG TAB (IMMEDIATE RELEASE) PO STA (01:43)
[2019-03-08 02:14] LABS: Amphetamines+Metham, Urine Neg (Neg); Barbiturates, Urine Neg (Neg); Benzodiazepine, Urine Neg (Neg); Cocaine, Urine Neg (Neg); MDMA (Ecstacy), Urine Neg (Neg); Methadone, Urine Neg (Neg); Opiate, Urine Pos (Neg); Phencyclidine, Urine Neg (Neg)
[2019-03-08] MEDS ORDERED: ACETAMINOPHEN 325 MG TAB PO PRN (02:25)
[2019-03-08] MEDS ORDERED: METOCLOPRAMIDE HCL INJ 5 MG/ML 2 ML VIAL IV PRN (02:25)
[2019-03-08] MEDS ORDERED: LORazepam 0.25 MG/0.5 ML VIAL IV PRN (02:25)
[2019-03-08] MEDS: MoRPHine SULFATE 2 MG/ML CARP IV PRN ×3 (02:33→21:43)
[2019-03-08] MEDS: POTASSIUM CHLORIDE 40 MEQ in D5W AND NSS 1,000 ML IV SCH (03:21)
[2019-03-08 05:51] LABS: Basophils # (auto) 0.03 K/uL (0-0.2); Basophils % (auto) 0.4 %; Eosinophils # (auto) 0.12 K/uL (0-0.5); Eosinophils % (auto) 1.6 %; Hematocrit (blood only) 34.1 % (42-52); Hemoglobin 11.3 g/dL (14.0-18.0); Lymphocytes # (auto) 2.71 K/uL (1.2-3.4); Lymphocytes % (auto) 36.1 %; Mean Corpuscular Hemoglobin 25.9 pg (25-34); Mean Corpuscular Hgb Conc 33.1 g/dL (32-36); Mean Corpuscular Volume 78.2 fL (80-100); Mean Platelet Volume 8.9 fL (7.4-10.4); Monocytes # (auto) 0.64 K/uL (0.11-0.59); Monocytes % (auto) 8.5 %; Neutrophils # (auto) 4.01 K/uL (1.4-6.5); Neutrophils % (auto) 53.4 %; Platelet Count 278 K/uL (130-400); RDW Coefficient of Variation 14.3 % (11.5-14.5); RDW Standard Deviation 40.7 fL (36.4-46.3); Red Blood Count 4.36 M/uL (4.7-6.1); White Blood Count 7.51 K/uL (4.8-10.8)
[2019-03-08] MEDS: OXYCODONE HCL IR 5 MG TAB (IMMEDIATE RELEASE) PO PRN ×4 (05:58→20:07)
[2019-03-08 06:32] LABS: BUN Creatinine Ratio 8.8 (10-20); Calcium 8.7 mg/dl (8.5-10.1); Creatinine Clr Calc Pharmacy 97.4 ml/min; Est GFR (African American) 117.9; Est GFR (Non-African American) 101.7; Potassium 3.9 mmol/L (3.5-5.1)
--- NOTE | 2019-03-08 06:32 | CT Scan Report ---
CT abd pelvis IV con only CT DOSE: 271.02 mGy.cm HISTORY: Pain. Nausea. eval for diverticulitis TECHNIQUE: Multiaxial CT images of the abdomen and pelvis were performed following the use of intrave nous contrast. A dose lowering technique was utilized adhering to the principles of ALARA. COMPARISON STUDY: 10/12/2018 FINDINGS: The lung bases are clear. The liver, spleen, gallbladder, pancreas, kidneys, and adrenal gl ands are within normal limits. No bowel wall thickening or obstruction. The pelvic organs are unremar kable. No suspicious lytic or blastic osseous lesions. Slight increase in enhancement of the proximal to mid small bowel loop suggesting a mild enteritis. Colon shows no evidence of diverticulitis or colitis. Trace free fluid within the pelvic cul-de-sac. Mild bladder distention. IMPRESSION: 1. Mild proximal to mid small bowel enteritis. 2. Nonobstructive bowel pattern. 3. Moderate bladder distention. The above report was generated using voice recognition software. It may contain grammatical, syntax or spelling errors. Electronically signed by: Martin Dee M.D. 03/08/2019 6:31 AM
[2019-03-08] MEDS: SUCRALFATE 1 GM/10 ML UDC PO SCH ×4 (07:44→21:42)
--- NOTE | 2019-03-08 09:06 | Gastrointestinal Consultation ---
Date of Consultation March 08, 2019 Assessment & Plan (1) Duodenal ulcer: (2) Abdominal pain: (3) GI bleed: Pt is a 23 y/o male w hx of duodenal ulcer, admitted w upper abd pain, n/v, reportedly had dark blood in stools. Labs showed H/H stable since admitted, in fact blood ct improved from previous months. BUN normal. CT w signs of possible enteritis. He jeffrey't had any more BMs since admitted. - Protonix 40mg PO BID - Dicyclomine PRN abd pain, avoid NSAIDs - Stool cx, Cdiff if have diarrhea - He should have repeat EGD to check for ulcer healing. He would like to defer it today, wants to eat. We will start CL diet and plan for possible EGD tomorrow (will discuss w Dr. Ochoa) Supervising Physician Co-Signing Physician Notes I have personally seen and examined the patient with AFIA Miller. Her note reflects my exam and finding. I agree with her impression and plan. Patient has not been compliant with PPI. Will arrange EGD. Jeevan Ochoa M.D. History of Present Illness Reason for Consultation: Abd pain, GI bleed Requesting Physician: Dr. Yasir Alberts Attending Physician: Dr. Jeevan Ochoa History of Present Illness Pt is a 23 y/o male w hx of duodenal ulcer who presented to ED last night w c/o LUQ abd pain that's been present for months but progressively worse. He has associated n/v. Denies hematemesis or coffee ground emesis. He did report dark red blood in stools. He denies fever, chills, CP, SOB. He had ran out of Protonix x 1 week. Been taking his Carafate. On eval, H/H stable . Hgb better than months ago. BUN normal. LFTs, lipase normal. CT abd/pelvis w contrast showed signs of possible enteritis. He works in [employer]. Denies sick contact, recent antibx, or consumption of undercooked/raw foods. He knows to not be taking NSAIDs. Reports been using Tylenol but last night tried Ibuprofen for abd pain. Last EGD in September w findings of duodenal ulcer, path showed gastritis w/o Hyplori, intestinal metaplasia, dysplasia. Was supposed to have repeat EGD to check for ulcer healing around December. Smokes 6 cig a day. Denies marijuana or other illicit drugs Allergies Allergy/AdvReac Type Severity Reaction Status Date / Time Penicillins Allergy Severe ANAPHYLAXIS Verified 03/07/19 22:47 promethazine Allergy Severe SHORTNESS Verified 03/07/19 22:47 OF BREATH tramadol Allergy Severe SHORTNESS Verified 03/07/19 22:47 OF BREATH diphenhydramine Allergy Unknown Itchiness Verified 03/04/19 03:54 and trouble breathing. NSAIDS (Non-Steroidal AdvReac Severe Gastrointestinal Unverified 03/07/19 22:47 Anti-Inflamma Upset lactose AdvReac Intermediate nausea Verified 03/07/19 22:47 Home Medications Home Medications Medication Instructions Recorded Confirmed Type ciprofloxacin HCl 500 mg PO BID 03/07/19 03/07/19 History sucralfate [Carafate] 10 ml PO ACHS 03/07/19 03/07/19 History Patient History Medical History GERD (gastroesophageal reflux disease) (Chronic) H/O: duodenal ulcer Surgical History H/O esophagogastroduodenoscopy 10/06/18 MAC Hx of hernia repair Family History Other Diabetes Gallbladder disease Heart disease Hypertension Lung disease Seizure Social History Preferred Language: Czech Communication Ability: Effective Lead Esthetician Required: No Beliefs That Will Affect Care: None marital status: Single Current Living Situation: Alone current occupational status: employed Other Information That Helps Us Care for You: No Feels Safe at Home: Yes Safety Concerns: Feels Safe At This Time Smoking Status: Current every day smoker Tobacco Type: cigarettes ; Cigarettes Per Day: 6 ; Do You Dip or Chew Tobacco: No ; Second Hand Exposure: No ; Hx Alcohol Use: No Hx Substance Use: No Review of Systems Review of Systems: All systems reviewed & are unremarkable except as noted in HPI & below Physical Exam Constitutional: + thin, well groomed, cooperative and comfortable Eyes: PERRL, conjunctivae normal, anicteric sclerae ENMT: external ear and nose normal, oropharynx normal Respiratory: normal respiratory effort, lungs clear to auscultation Cardiovascular: RRR, no murmur, no edema Gastrointestinal (Abdomen): Inspection/Auscultation: + hypoactive bowel sounds Percussion/Palpation: + abdomen tender (upper quadrants) and abdomen soft Skin: no rashes, warm and dry no jaundice Neurologic: Motor/Sensory: no asterixis Psychiatric: A+Ox3, euthymic affect Lymphatic: no lymphedema Results & Data Vital Signs (Past 12 Hours) Vital Signs Temp Pulse Pulse Resp BP BP Pulse Ox 03/08/19 07:47 36.4 C L 68 16 120/73 98 03/08/19 02:15 36.8 C 70 16 123/83 99 03/08/19 00:46 73 20 133/66 96 03/07/19 23:12 97 03/07/19 23:07 76 18 132/69 98 03/07/19 21:46 37.1 C 88 18 117/73 98 (1) GI bleed GI bleed type/associated pathology: unspecified gastrointestinal hemorrhage type Qualified Code(s): K92.2 - Gastrointestinal hemorrhage, unspecified (2) Abdominal pain Abdominal location: left upper quadrant Qualified Code(s): R10.12 - Left upper quadrant pain
[2019-03-08] MEDS: PANTOprazole 40 MG TAB PO SCH ×2 (10:24→20:54)
[2019-03-08] MEDS: DICYCLOMINE HCL 10 MG CAP PO PRN (11:15)
[2019-03-08 12:27] LABS: Hematocrit (blood only) 32.4 % (42-52); Hemoglobin 10.9 g/dL (14.0-18.0)
[2019-03-08] MEDS: ONDANSETRON INJ 2 MG/ML 2 ML VIAL IV PRN (16:02)
--- NOTE | 2019-03-08 20:09 | Communication Note ---
Date of Service: March 08, 2019 Pt was seen and examined Lying in bed with no distress Pt said that he continues to have abdominal pain Denies any chest pain, palpitation and vomiting General- No acute distress Head- atraumatic Eyes- PERRL, EOMI, ENT- oropharynx clear Neck- supple, no JVD Lungs- clear to auscultation Heart- regular rhythm; no murmur Abdomen- normal bowel sounds, +tender Extremities- no calf tenderness Neuro- alert, oriented x 3; PERRL, EOMI; no facial palsy; no dysarthria Skin- warm & dry A/P Abdominal pain associated with Nausea and vomiting Duodenal ulcer recurrent admission for abdominal pain associated with nausea and vomiting S/P EGD done on 10/06 by Gastro showed non bleeding duodenal ulcer Worsening abdominal pain associated with nausea/vomiting and dark stools CT abd/pelvis showed mild proximal to mid small bowel enteritis. Nonobstructive bowel pattern. Continue pain control GI on board recommended Protonix 40 mg twice daily Avoid NSAIDs use Clear liquid diet Will make NPO after midnight for possible EGD in am Anemia Hgb 10.9 stable Monitor CBC Tobacco abuse Counseling on tobacco abuse On Nicotine patch DVT px ambulates/SCDs CODE STATUS FULL CODE
[2019-03-09] MEDS: OXYCODONE HCL IR 5 MG TAB (IMMEDIATE RELEASE) PO PRN ×5 (00:20→23:29)
[2019-03-09] MEDS: ONDANSETRON INJ 2 MG/ML 2 ML VIAL IV PRN ×3 (00:20→12:40)
[2019-03-09] MEDS: POTASSIUM CHLORIDE 40 MEQ in D5W AND NSS 1,000 ML IV SCH ×2 (00:40→20:48)
[2019-03-09] MEDS: DICYCLOMINE HCL 10 MG CAP PO PRN (01:59)
--- NOTE | 2019-03-09 08:43 | History & Physical Bridge Note ---
Date of Service March 09, 2019 History & Physical Bridge Note I have examined the patient, reviewed the History & Physical and in the interval since the performance of the History & Physical I have noted the following changes of clinical significance: no changes noted Pt still c/o LUQ abd pain, no n/v. Had liquid brown stools last night. He had been NPO for EGD today. Labs, VS reviewed. Exam: - AAOx3, in NAD - CTA bilateral lungs - HRR, no murmur or gallops - Abd soft, TTP LUQ area, hypoactive bowel sounds - Bilateral LE no edema GI will give further recs after EGD is completed. Supervising Physician Co-Signing Physician Notes Pt seen and examined with AFIA Miller. Her note reflects my exam and findings. I agree with her impression and plan. Will proceed with EGD. Jeevan Ochoa M.D.
[2019-03-09] MEDS: SUCRALFATE 1 GM/10 ML UDC PO SCH ×4 (08:54→20:06)
[2019-03-09] MEDS: PANTOprazole 40 MG TAB PO SCH ×2 (08:54→20:07)
[2019-03-09] MEDS ORDERED: ePHEDrine sulfate 50 MG/ML AMP IV PRN (11:08)
[2019-03-09] MEDS ORDERED: ATROPINE SULFATE 0.1 MG/ML 10ML SYR IV PRN (11:08)
--- NOTE | 2019-03-09 11:08 | Anesthesiology Consultation ---
Date of Service March 09, 2019 Assessment & Plan Chart Review Chart Review: Acceptable Risk for Surgery and Patient NOT seen in Pre Admission Testing Consults Requested none ASA ASA3 Proposed Anesthesia Anesthesia Type: MAC Risk / Benefits Reviewed With: PT / POA / Parent / Guardian, Accepts Plan and Informed Consent Obtained History Surgery Operation Date: 03/09/19 09:30 Proposed Procedures p Esophagogastroduodenoscopy Dr Don Ochoa Height/Weight Height: 5 ft 6 in Weight: 62.2 kg Allergies Allergy/AdvReac Type Severity Reaction Status Date / Time Penicillins Allergy Severe ANAPHYLAXIS Verified 03/07/19 22:47 promethazine Allergy Severe SHORTNESS Verified 03/07/19 22:47 OF BREATH tramadol Allergy Severe SHORTNESS Verified 03/07/19 22:47 OF BREATH diphenhydramine Allergy Unknown Itchiness Verified 03/04/19 03:54 and trouble breathing. NSAIDS (Non-Steroidal AdvReac Severe Gastrointestinal Unverified 03/07/19 22:47 Anti-Inflamma Upset lactose AdvReac Intermediate nausea Verified 03/07/19 22:47 Medications Home Medications Medication Instructions Recorded Confirmed Last Taken ciprofloxacin HCl 500 mg PO BID 03/07/19 03/07/19 Unknown sucralfate [Carafate] 10 ml PO ACHS 03/07/19 03/07/19 Unknown Active Medications Generic Name Dose Route Start Last Admin Trade Name Freq PRN Reason Stop Dose Admin Dicyclomine HCl 10 mg 03/08/19 09:06 03/09/19 01:59 Bentyl PO 04/07/19 09:05 10 mg TID PRN Administration pain Potassium Chloride 40 meq/ 1,020 mls @ 50 mls/hr 03/08/19 02:45 03/09/19 10:41 Dextrose/Sodium Chloride IV 04/07/19 02:44 0 mls/hr .[id number] JULI Infusion Metoclopramide HCl 10 mg 03/08/19 02:25 03/08/19 05:59 Reglan IV 04/07/19 02:24 10 mg Q6H PRN Administration Nausea Morphine Sulfate 2 mg 03/08/19 01:42 03/08/19 21:43 Morphine Sulfate IV 03/22/19 01:41 2 mg Q8H PRN Administration Pain Ondansetron HCl 4 mg 03/08/19 15:19 03/09/19 06:26 Zofran IV 04/07/19 15:18 4 mg Q6H PRN Administration Nausea Oxycodone HCl 5 mg 03/08/19 01:42 03/09/19 06:26 Roxicodone Immediate Rel PO 03/22/19 01:41 5 mg Q4H PRN Administration Pain Pantoprazole Sodium 40 mg 03/08/19 09:00 03/09/19 08:54 Protonix PO 04/07/19 08:59 40 mg BID JULI Administration Sucralfate 1 gm 03/08/19 07:30 03/09/19 08:54 Carafate PO 04/07/19 07:29 1 gm ACHS JULI Administration NPO Date Last Intake of Fluids: 03/09/19 Time Last Intake of Fluids: 09:00 Date Last Intake of Solids: 03/08/19 Time Last Intake of Solids: 18:00 Past Medical History Medical History GERD (gastroesophageal reflux disease) (Chronic) Anemia H/O: duodenal ulcer Exercise / Class Metabolic Activity II 4-5 Yardwork/Stairs/Walk up hill Past Family History Family History Other Diabetes Gallbladder disease Heart disease Hypertension Lung disease Seizure Past Surgical History Surgical History H/O esophagogastroduodenoscopy 10/06/18 MAC Hx of hernia repair Past Anesthesia History No Hx of Anesthesia Complications and No Family Hx of Anesthesia Complications History of PONV No Hx of PONV and No Hx of Motion Sickness Social History Smoking Status: Current every day smoker tobacco type: cigarettes Smoking cigarettes per day: 6 Do You Dip or Chew Tobacco: No Hx Alcohol Use: No Hx Substance Use: No Physical Exam Vital Signs Last Vital Signs Temp 36.7 C 03/09/19 11:02 Pulse 59 L 03/09/19 11:02 Resp 20 03/09/19 11:02 BP 110/60 03/09/19 11:02 Pulse Ox 99 03/09/19 11:02 Constitutional not obese ENMT Mouth: + dentition abnormality, + dental caries and + poor dentition Thyromental Distance: > or= 3.5 Finger Breadths Mallampati Class: II Neck normal visual inspection, trachea midline and + facial hair; neck extension not limited Respiratory normal respiratory effort Auscultation: lungs clear to auscultation bilaterally Cardiovascular Rate/Rhythm: regular rate and regular rhythm Heart Sounds: no murmur Musculoskeletal Spine: normal cervical ROM Neurologic moves all extremities Motor/Sensory: no sensory deficit Psychiatric Orientation: alert and oriented x 3 Testing Laboratory Results 03/08/19 12:16 03/08/19 05:30 Urine Color Yellow 03/07/19 23:25 Urine Appearance Clear (Clear) 03/07/19 23:25 Urine pH 6.5 (4.5-7.5) 03/07/19 23:25 Ur Specific [place] 1.022 (1.000-1.030) 03/07/19 23:25 Urine Protein Negative (Negative) 03/07/19 23:25 Urine Glucose (UA) Negative (Negative) 03/07/19 23:25 Urine Ketones Negative (Negative) 03/07/19 23:25 Urine Nitrite Negative (Negative) 03/07/19 23:25 Ur Leukocyte Esterase Negative (Negative) 03/07/19 23:25 Blood Type B Negative 03/07/19 22:28 Antibody Screen NEGATIVE 03/07/19 22:28
[2019-03-09] MEDS ORDERED: PROPOFOL IV EMULSION 10 MG/ML 20 ML VIAL IV ONE (11:14)
[2019-03-09] MEDS ORDERED: LIDOCAINE HCL 2% 2 ML VIAL/AMP(20MG/ML) INFIL ONE (11:14)
--- NOTE | 2019-03-09 11:35 | GI REPORT ---
Patient Name: Branden Sánchez Procedure Date: 03/09/2019 11:14 AM Date of : 1995 Admit Type: Inpatient Age: 23 Gender: Male Attending MD: Jeevan Ochoa MD Procedure: Upper GI endoscopy Providers: Jeevan Ochoa MD Referring MD: RADHA BUITRAGO Indications: Epigastric abdominal pain, Melena Medicines: See the Anesthesia note for documentation of the administered medications Complications: No immediate complications. Estimated Blood Loss: Estimated blood loss: none. Procedure: Pre-Anesthesia Assessment: - Prior to the procedure, a History and Physical was performed, and patient medications, allergies and sensitivities were reviewed. The patient's tolerance of previous anesthesia was reviewed. - The risks and benefits of the procedure and the sedation options and risks were discussed with the patient. All questions were answered and informed consent was obtained. - Patient identification and proposed procedure were verified prior to the procedure by the physician and the nurse. The procedure was verified in the pre-procedure area. - Pre-procedure physical examination revealed no contraindications to sedation. - After reviewing the risks and benefits, the patient was deemed in satisfactory condition to undergo the procedure. After obtaining informed consent, the endoscope was passed under direct vision. Throughout the procedure, the patient's blood pressure, pulse, and oxygen saturations were monitored continuously. The Endoscope was introduced through the mouth, and advanced to the third part of duodenum. The upper GI endoscopy was accomplished without difficulty. The patient tolerated the procedure well. Findings: The esophagus was normal. One non-bleeding superficial gastric ulcer with no stigmata of bleeding was found at the pylorus. The examined duodenum was normal. The cardia and gastric fundus were normal on retroflexion. Impression: - Normal esophagus. - Small non-bleeding gastric ulcer in the pyloric channel with no stigmata of bleeding. - Normal examined duodenum. - No specimens collected. Recommendation: - [facility] for [facility] care. Jeevan Ochoa M.D. Jeevan Ochoa MD 03/09/2019 11:35:38 AM This report has been signed electronically. Note Initiated On: 03/09/2019 11:14 AM Number of Addenda: 0 I attest to the content of the Intraoperative Record and orders documented therein, exceptions below {[id number]}
--- NOTE | 2019-03-09 12:12 | Anesthesiology Progress Note ---
Date of Service March 09, 2019 Anesthesia Post Procedure Vital Signs Vital Signs: Temp Pulse Resp BP Pulse Ox 03/09/19 11:36 63 16 96/49 L 100 03/09/19 11:02 36.7 C 59 L 20 110/60 99 03/09/19 07:55 36.8 C 65 16 106/60 100 03/08/19 23:30 36.8 C 65 16 103/67 100 03/08/19 15:42 36.3 C L 57 L 16 117/73 99 Pain Intensity Abdomen: Pain Intensity: 9 Transfer of Care Handoff Completed per policy Notes Mental Status: alert / awake / arousable Patient Amnestic to Procedure: Yes Nausea / Vomiting: adequately controlled Pain: adequately controlled Airway Patency, RR, SpO2: stable & adequate BP & HR: stable & adequate Hydration State: stable & adequate Anesthetic Complications: no major complications apparent
[2019-03-09] MEDS: MoRPHine SULFATE 2 MG/ML CARP IV PRN (12:40)
--- NOTE | 2019-03-09 18:26 | Hospitalist Progress Note ---
Date of Service March 09, 2019 Assessment & Plan (1) Duodenal ulcer: Abdominal pain associated with Nausea and vomiting recurrent admission for abdominal pain associated with nausea and vomiting Worsening abdominal pain associated with nausea/vomiting and dark stools CT abd/pelvis showed mild proximal to mid small bowel enteritis. Nonobstructive bowel pattern. S/P EGD done on today by Gastro showed non bleeding duodenal ulcer with no stigmata of bleeding Continue pain control GI on board case discussed with gastro and recommended to continue Protonix 40 mg twice daily and carafate Diet advanced as tolerated Avoid NSAIDs use Anemia Hgb 10.9 stable Monitor CBC Tobacco abuse Counseling on tobacco abuse On Nicotine patch DVT px ambulates/SCDs CODE STATUS FULL CODE Subjective Pt was seen and examined Lying in bed with no distress Pt just came back from EGD He said that he does have some nausea but mild His abdominal pain improves He wants to advance his diet to full Denies any chest pain, palpitation, dizziness and SOB Physical Exam Physical Exam: General- No acute distress Head- atraumatic Eyes- PERRL, EOMI, ENT- oropharynx clear Neck- supple, no JVD Lungs- clear to auscultation Heart- regular rhythm; no murmur Abdomen- normal bowel sounds, +tender Extremities- no calf tenderness Neuro- alert, oriented x 3; PERRL, EOMI; no facial palsy; no dysarthria Skin- warm & dry Results & Data Vital Signs (Past 12 Hours) Vital Signs Temp Pulse Resp BP Pulse Ox 03/09/19 14:52 36.8 C 79 16 112/67 99 03/09/19 12:44 36.5 C 60 16 97/64 L 99 03/09/19 11:36 63 16 96/49 L 100 03/09/19 11:02 36.7 C 59 L 20 110/60 99 03/09/19 07:55 36.8 C 65 16 106/60 100
[2019-03-09 23:35] VITALS: O2SAT 100
[2019-03-10] MEDS: OXYCODONE HCL IR 5 MG TAB (IMMEDIATE RELEASE) PO PRN ×2 (05:34→09:35)
[2019-03-10 06:20] LABS: BUN Creatinine Ratio 6.3 (10-20); Calcium 8.2 mg/dl (8.5-10.1); Creatinine Clr Calc Pharmacy 90.3 ml/min; Est GFR (African American) 107.6; Est GFR (Non-African American) 92.8
[2019-03-10 06:26] VITALS: BP 125/66; PULSE 76; TEMP 97.9
[2019-03-10] MEDS: SUCRALFATE 1 GM/10 ML UDC PO SCH (07:41)
[2019-03-10] MEDS: PANTOprazole 40 MG TAB PO SCH (07:41)
[2019-03-10 08:33] LABS: Codeine Urine NEGATIVE NG/ML (CUTOFF=50); Hydrocodone Urine NEGATIVE NG/ML (CUTOFF=50); Hydromor Urine NEGATIVE NG/ML (CUTOFF=50); Morphine Urine 623 NG/ML (CUTOFF=50); Norhydrocodone Conf Ur NEGATIVE NG/ML (CUTOFF=50); Noroxycodone Urine NEGATIVE NG/ML (CUTOFF=50); Oxycodone Urine NEGATIVE NG/ML (CUTOFF=50); Oxymorph Urine NEGATIVE NG/ML (CUTOFF=50)
--- NOTE | 2019-03-10 10:41 | Discharge Summary ---
Date of Service March 10, 2019 Admission HPI Per Admitting Provider History obtained from patient and records. Medical history significant for duodenal ulcer, hx colitis, chronic anemia (baseline hemoglobin of 9-10), ongoing tobacco abuse. Recent confinement October 2018 for hematemesis secondary to duodenal ulcer. Patient discharged on Protonix and Carafate course. Repeat EGD contemplated by GI around December 2018. As per patient, he has had chronic left upper quadrant pain for months now since ulcer issues have started. Pain gets worse from time to time. Recent ER visit 3 days ago for worsening left upper quadrant pain without bleeding symptoms. Patient discharged from the ER. Upon return home patient noted worsening abdominal pain with nonbloody emesis as per patient account. Loose stools dark red. No fever, no chills. Patient denies chest pain, S OB. Patient admits to taking OTC NSAIDs for discomfort. Patient given IV Protonix bolus at the ER. 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, fast food restaurant employee Admission Exam Per Admitting Provider GENERAL: uncomfortable, slightly anxious, no respiratory distress SKIN: Pallor , warm HEENT: Pale palpebral conjunctivae, no ptosis, dry buccal mucosa NECK : Supple, no tenderness CHEST : Decreased breath sounds , no tenderness HEART : RRR, no obvious murmurs ABDOMEN: Some distention, left-sided abdominal tenderness EXTREMITIES : No LE swelling/tenderness, no other conspicuous deformities noted NEUROLOGIC : Coherent, no facial asymmetry, no other gross focality Principal Diagnosis Duodenal ulcer Abdominal pain Anemia Discharge Exam General- No acute distress Head- atraumatic Eyes- PERRL, EOMI, ENT- oropharynx clear Neck- supple, no JVD Lungs- clear to auscultation Heart- regular rhythm; no murmur Abdomen- normal bowel sounds, +tender Extremities- no calf tenderness Neuro- alert, oriented x 3; PERRL, EOMI; no facial palsy; no dysarthria Skin- warm & dry Discharge Data Allergies Allergy/AdvReac Type Severity Reaction Status Date / Time Penicillins Allergy Severe ANAPHYLAXIS Verified 03/07/19 22:47 promethazine Allergy Severe SHORTNESS Verified 03/07/19 22:47 OF BREATH tramadol Allergy Severe SHORTNESS Verified 03/07/19 22:47 OF BREATH diphenhydramine Allergy Unknown Itchiness Verified 03/04/19 03:54 and trouble breathing. NSAIDS (Non-Steroidal AdvReac Severe Gastrointestinal Unverified 03/07/19 22:47 Anti-Inflamma Upset Consultations 03/08/19 00:29 ED Decision to Admit Stat 03/08/19 02:25 Consult Gastroenterology Routine Procedures Performed Operation Date: 03/09/19 09:30 Actual Procedures p Esophagogastroduodenoscopy(Not Applicable) - Jeevan Ochoa Ordered Studies 03/07/19 22:20 CT abd pelvis IV con only Urgent CT abd pelvis IV con only CT DOSE: 271.02 mGy.cm HISTORY: Pain. Nausea. eval for diverticulitis TECHNIQUE: Multiaxial CT images of the abdomen and pelvis were performed following the use of intravenous contrast. A dose lowering technique was utilized adhering to the principles of ALARA. COMPARISON STUDY: 10/12/2018 FINDINGS: The lung bases are clear. The liver, spleen, gallbladder, pancreas, kidneys, and adrenal glands are within normal limits. No bowel wall thickening or obstruction. The pelvic organs are unremarkable. No suspicious lytic or blastic osseous lesions. Slight increase in enhancement of the proximal to mid small bowel loop suggesting a mild enteritis. Colon shows no evidence of diverticulitis or colitis. Trace free fluid within the pelvic cul-de-sac. Mild bladder distention. IMPRESSION: 1. Mild proximal to mid small bowel enteritis. 2. Nonobstructive bowel pattern. 3. Moderate bladder distention. The above report was generated using voice recognition software. It may contain grammatical, syntax or spelling errors. Electronically signed by: Martin Dee M.D. 03/08/2019 6:31 AM Dictated: 03/08/19628 Transcribed: 03/08/19628 Hospital Course (1) Duodenal ulcer: Abdominal pain associated with Nausea and vomiting recurrent admission for abdominal pain associated with nausea and vomiting Worsening abdominal pain associated with nausea/vomiting and dark stools CT abd/pelvis showed mild proximal to mid small bowel enteritis. Nonobstructive bowel pattern. S/P EGD done on today by Gastro showed non bleeding duodenal ulcer with no stigmata of bleeding Continue pain control GI on board case discussed with gastro and recommended to continue Protonix 40 mg twice daily and carafate Diet advanced as tolerated Avoid NSAIDs use Anemia Hgb 10.9 stable Monitor CBC Tobacco abuse Counseling on tobacco abuse On Nicotine patch DVT px ambulates/SCDs CODE STATUS FULL CODE Total Time Total Time Spent Total Time Spent (In Minutes): 35 minutes Total Time Includes: Examination of the Patient, Discharge Planning, Medication Reconciliation, Communication With Other Providers and Other Discharge Plan Discharge Items Patient Disposition: Home - Self-Care Reason For Visit: GI BLEED Discharge Diagnosis: Duodenal ulcer Abdominal pain Anemia Activity: Resume your previous activity Activity Comment: as tolerated Non-emergency contact: Primary Care Provider Call non-emergency contact if: you have any medication questions Follow-up/Referrals: Martin Waters MD [Primary Care Provider] - Diet: Regular Addtl Attending Provider Instructions: Follow up with your primary care provider Dr. Waters on 03/16 @ 10:45 AM Advanced diet as tolerated Advised on smoking cessation Avoid any NSAIDs (such as Motrin, Aleve, Naproxen, Ibuprofen, Advil) Do not drive or operate any machine after taking the oxycodone Please hold oxycodone if you become drowsy and lethargy Pending Studies at Discharge: No Stand-Alone Forms: [facility] [place], Smoking Cessation Medications and DC Order Prescriptions: New oxycodone 5 mg Tablet 5 mg PO Q8H PRN (Reason: pain) Qty: 9 RF: 0 pantoprazole 40 mg Tablet,Delayed Release (Dr/Ec) 40 mg PO BID 30 Days Qty: 60 RF: 0 ondansetron HCl [Zofran] 4 mg tablet 4 mg PO Q8H PRN (Reason: nausea and vomiting) Qty: 20 RF: 0 Continued sucralfate [Carafate] 100 mg/mL suspension 10 ml PO ACHS Qty: 420 RF: 0 Discontinued ciprofloxacin HCl 500 mg Tablet 500 mg PO BID RF: 0 Discharge Orders: Discharge Order (Routine); Ordered 03/10/19 Ordered By: Farshad Loredo Admission Data Admit Date/Time: 03/08/19 01:48 Attending Provider: Farshad Loredo Admit Provider: Yasir Alberts Primary Care Provider: Martin Waters Other Providers: Yasir Alberts ; Manuela Beyer ; João Louis ; Nayeli Ryan ; Ceasar Maradiaga ; Karyn Olguin ; Trae Santoyo ; Aspen Kee ; Herson Mojica ; Jeevan Ochoa ; Ruth Brooks ; Adela Pena ; Halie Matos ; Quin Mar ; Wilda Maciel
== END 2019-03-10 11:43 | disposition home or self-care (01) ==
LOC: ED 21:40 → 3N 21:40